=== PATIENT | female | born 1965 | race Caucasian/White ===

== ENCOUNTER 2017-06-18 10:52 | Day surgery (SDC) | payer OTHER ==
[~2017-06-18] VITALS: Ht 167.6 cm; Wt 120.7 kg
[~2017-06-18 10:52] MED LIST: ADVIL; ALBIPROI INH; ARIP15 PO; BCOIRO PO; CHLO10 PO; CORGARD PO; CYCL10 PO; DOXY100 PO; FAMO20 PO; FAMO40 PO; FOLI1 PO; FURO20 PO; FURO40 PO; FURO80 PO; IBUP600 PO; K-Dur PO; LACT10SY PO; LEVFLO500 PO; METO10 PO; METO100 PO; METR500 PO; MULVITB PO; NADO20 PO; NADOLOL; NAPR500 PO; NYST100SU SS; Norco 5-325 Ta1 EACH PO; OMEP20ER PO; OMEP40CA12 PO; ONDA4ODT MM; OSTERA TABLET1 EACH; OXYC5 PO; PARI1 PO; PENT400ER PO; POTCHL10ER PO; POTCHL20ER PO; PROM25 PO; PROM25S PR; Phenergan PO; SPIR50 PO; TAMS.4ER PO; THIA100 PO; TRAM50 PO; Zofran Odt4 MG SL
== END 2017-06-18 14:00 | disposition home or self-care (01) ==
LOC: ORSCSDS 10:52
PROVIDERS: Internal Medicine Gastroenterology
PROC: 0DJ08ZZ Inspection of Upper Intestinal Tract, Via Natural or Artificial Opening Endoscopic (ICD-10-PCS; principal; 2017-06-18 12:00)
DX: K74.60 Unspecified cirrhosis of liver (principal); I85.00 Esophageal varices without bleeding; K44.9 Diaphragmatic hernia without obstruction or gangrene; J44.9 Chronic obstructive pulmonary disease, unspecified; B19.20 Unspecified viral hepatitis C without hepatic coma; K21.9 Gastro-esophageal reflux disease without esophagitis; Z87.891 Personal history of nicotine dependence; E66.9 Obesity, unspecified; Z68.41 Body mass index [BMI] 40.0-44.9, adult
CPT/HCPCS: J7120

== ENCOUNTER 2018-07-15 17:11 | Emergency (ER) | payer OTHER ==
[~2018-07-15] VITALS: Ht 167.6 cm; Wt 136.1 kg
[~2018-07-15 17:11] MED LIST changes: +ALBU2.5V5 NEB; +ALBU3IS INH; +Advil200 M1 PO; +MELATONIN5 M1 PO; +Omeprazole20 M1 PO; +PROP60 PO; +TRAZ50 PO
[2018-07-15 18:34] LABS: BASOPHILS ABSOLUTE AUTO 0.07 K/mm3 (0.00-0.23); BASOPHILS PERCENT AUTO 1 % (0-2); EOSINOPHILS ABSOLUTE AUTO 0.47 K/mm3 (0.00-0.68); EOSINOPHILS PERCENT AUTO 8 % (0-6); Hemoglobin 11.1 g/dL (11.5-16.0); IMMATURE GRAN ABSOLUTE AUTO 0.02 K/mm3 (0.00-0.10); IMMATURE GRAN PERCENT AUTO 0 % (0-1); LYMPHOCYTES ABSOLUTE AUTO 1.99 K/mm3 (0.84-5.20); LYMPHOCYTES PERCENT AUTO 34 % (21-46); MONOCYTES ABSOLUTE AUTO 0.53 K/mm3 (0.16-1.47); MONOCYTES PERCENT AUTO 9 % (4-13); Mean Corpuscular HGB 26.3 pg (26.0-34.0); Mean Corpuscular Volume 88 fL (80-100); Mean Platelet Volume 10.2 fL (9.1-12.4); NEUTROPHILS ABSOLUTE AUTO 2.79 K/mm3 (1.96-9.15); NEUTROPHILS PERCENT AUTO 48 % (41-73); Platelet Count 230 K/mm3 (150-400); RDW Coefficient Variation 16.4 % (11.7-14.2); RDW Standard Deviation 52.8 fL (35.1-46.3); Red Blood Cell Count 4.22 M/mm3 (3.80-5.20); White Blood Cell Count 5.87 K/mm3 (4.00-11.30)
[2018-07-15 19:11] LABS: Alanine Aminotransfer (ALT/SGP 19 U/L (12-78); Albumin, Blood 3.2 g/dL (3.4-5.0); Albumin/Globulin Ratio 0.9 (0.8-1.8); Alk Phos 101 U/L (50-136); Anion Gap 5 mmol/L (6-16); Aspartate Aminotrans (AST/SGOT 20 U/L (12-37); Bilirubin, Total 1.1 mg/dL (0.1-1.0); Blood Urea Nitrogen 10 mg/dL (8-24); Bun/Creatinine Ratio 13.6 (12.0-20.0); CO2, Blood 29 mmol/L (21-32); Calcium, Blood 8.8 mg/dL (8.5-10.1); Chloride, Blood 105 mmol/L (98-108); Creatinine, Blood 0.74 mg/dL (0.40-1.00); Globulin, Blood 3.7 g/dL (2.2-4.0); Glomerular Filtration Rate >60 (60-); Glucose, Blood 115 mg/dL (70-99); Potassium, Blood 3.8 mmol/L (3.5-5.5); Sodium, Blood 139 mmol/L (136-145); Total Protein, Blood 6.9 g/dL (6.4-8.2); Troponin I <0.015 ng/mL (0.000-0.040)
[2018-07-15] MEDS ORDERED: Diflucan100 MG PO (20:29)
== END 2018-07-15 20:40 | disposition home or self-care (01) ==
LOC: ER 17:11
PROVIDERS: Physician Assistant
DX: R60.0 Localized edema (principal); B37.9 Candidiasis, unspecified; Z88.5 Allergy status to narcotic agent; Z79.899 Other long term (current) drug therapy; Z87.891 Personal history of nicotine dependence
CPT/HCPCS: 36415; 71046; 80053; 83880; 84484; 85025; 93005; 93010; 99285-25

== ENCOUNTER 2018-11-21 07:17 | Day surgery (SDC) | payer OTHER ==
[~2018-11-21] VITALS: Ht 165.1 cm; Wt 158.0 kg
[~2018-11-21 07:17] MED LIST changes: +Diflucan100 MG PO
--- NOTE | 2018-11-21 07:48 | NUR ---
History, Chart, Medications and Allergies reviewed before start of procedure. Patient States Post-Procedure ride home has been arranged.
--- NOTE | 2018-11-21 09:31 | NUR ---
11/21/18 0931 Lakesha Herring History, Chart, Medications and Allergies reviewed before start of procedure. Patient confirms NPO status and agrees with scheduled surgery. MONITOR INTACT WITH CONTINUOUS PULSE OXIMETRY AND INTERMITTENT BP.
--- NOTE | 2018-11-21 10:00 | NUR ---
INTO STEP VIA OBEDRJARROD. PT COUGHING AND AUDIBLY WZ. SATS 84% ON RA. PLACED ON 2 LITERS NASAL CANULA TO KEEP SAS>90%. PT RECEIVED LIDOCAINE NEB PRIOR TO PROCEDURE. WILL HOLD OFF ON PO FLUIDS UNTIL GAG REFLEX RETURNS.
--- NOTE | 2018-11-21 10:50 | NUR ---
Patient up to Ambulate independently. Gait steady. Discharge instructions reviewed with patient. Patient verbalizes understanding. Copy given to patient to take home. Discharged via wheelchair to private car for ride home.
== END 2018-11-21 10:57 | disposition home or self-care (01) ==
LOC: ORSCMMR 07:17 → ORD 08:45 → ORSCMMR 10:57
PROVIDERS: Internal Medicine Gastroenterology
PROC: 0DB68ZX Excision of Stomach, Via Natural or Artificial Opening Endoscopic, Diagnostic (ICD-10-PCS; principal; 2018-11-21 08:45)
DX: K74.60 Unspecified cirrhosis of liver (principal); K31.7 Polyp of stomach and duodenum; I85.00 Esophageal varices without bleeding; J44.9 Chronic obstructive pulmonary disease, unspecified; I10 Essential (primary) hypertension; K44.9 Diaphragmatic hernia without obstruction or gangrene; K21.9 Gastro-esophageal reflux disease without esophagitis; E66.01 Morbid (severe) obesity due to excess calories; E11.9 Type 2 diabetes mellitus without complications; Z68.43 Body mass index [BMI] 50.0-59.9, adult; Z87.891 Personal history of nicotine dependence; Z79.899 Other long term (current) drug therapy
CPT/HCPCS: 88305; 88342; J2704; J7030

== ENCOUNTER 2019-01-28 19:17 | Inpatient (IN) | payer OTHER ==
[~2019-01-28] VITALS: Ht 167.6 cm; Wt 154.2 kg
[2019-01-28] MEDS ORDERED: Ventolin/Prove6.7 GM INH (19:41)
[2019-01-28] MEDS ORDERED: FUROSEMIDE20 MG PO (19:42)
[2019-01-28] MEDS ORDERED: THERA-D2000 UNIT PO (19:42)
[2019-01-28] MEDS ORDERED: POTA10T PO (19:43)
[2019-01-28 20:02] LABS: BASOPHILS ABSOLUTE AUTO 0.08 K/mm3 (0.00-0.23); BASOPHILS PERCENT AUTO 1 % (0-2); EOSINOPHILS ABSOLUTE AUTO 0.02 K/mm3 (0.00-0.68); EOSINOPHILS PERCENT AUTO 0 % (0-6); Hematocrit 35.3 % (33.0-51.0); Hemoglobin 10.1 g/dL (11.5-16.0); IMMATURE GRAN PERCENT AUTO 1 % (0-1); LYMPHOCYTES ABSOLUTE AUTO 0.89 K/mm3 (0.84-5.20); LYMPHOCYTES PERCENT AUTO 7 % (21-46); MONOCYTES ABSOLUTE AUTO 1.22 K/mm3 (0.16-1.47); MONOCYTES PERCENT AUTO 9 % (4-13); Mean Corpuscular HGB 23.8 pg (26.0-34.0); Mean Corpuscular HGB Conc 28.6 g/dL (31.5-36.5); Mean Corpuscular Volume 83 fL (80-100); NEUTROPHILS ABSOLUTE AUTO 10.86 K/mm3 (1.96-9.15); NEUTROPHILS PERCENT AUTO 82 % (41-73); Platelet Count 202 K/mm3 (150-400); RDW Coefficient Variation 18.3 % (11.7-14.2); RDW Standard Deviation 54.6 fL (35.1-46.3); Red Blood Cell Count 4.25 M/mm3 (3.80-5.20); White Blood Cell Count 13.17 K/mm3 (4.00-11.30)
[2019-01-28 20:20] LABS: Alanine Aminotransfer (ALT/SGP 32 U/L (12-78); Albumin, Blood 2.7 g/dL (3.4-5.0); Albumin/Globulin Ratio 0.7 (0.8-1.8); Alk Phos 97 U/L (50-136); Anion Gap 4 mmol/L (6-16); Aspartate Aminotrans (AST/SGOT 41 U/L (12-37); Bilirubin, Total 1.1 mg/dL (0.1-1.0); Blood Urea Nitrogen 14 mg/dL (8-24); Bun/Creatinine Ratio 18.6 (12.0-20.0); CO2, Blood 32 mmol/L (21-32); Calcium, Blood 8.3 mg/dL (8.5-10.1); Chloride, Blood 99 mmol/L (98-108); Creatinine, Blood 0.75 mg/dL (0.40-1.00); Globulin, Blood 4.1 g/dL (2.2-4.0); Glomerular Filtration Rate >60 (60-); Glucose, Blood 133 mg/dL (70-99); Potassium, Blood 4.4 mmol/L (3.5-5.5); Sodium, Blood 135 mmol/L (136-145); Total Protein, Blood 6.8 g/dL (6.4-8.2)
[2019-01-28 20:23] LABS: Troponin I 0.162 ng/mL (0.000-0.040)
[2019-01-28] MEDS ORDERED: MELATONIN5 M1 PO (21:09)
[2019-01-28 21:37] LABS: International Normalized Ratio 1.13; Prothrombin Time Results 11.8 Sec (9.7-11.5)
[2019-01-28 21:57] LABS: PCO2 Arterial 62.4 mmHg (35-45); PO2 Arterial 112 mmHg (80-100); pH Blood Arterial 7.35 (7.35-7.45)
[2019-01-29 07:06] LABS: Source, Urine Catheter
[2019-01-29 07:10] LABS: Bilirubin, Urine Neg (Neg); Blood, Urine 3+ (Neg); Glucose Qualitative, Urine Neg (Neg); Ketones, Urine Neg (Neg); Leukocyte Esterase, Urine 3+ (Neg); Nitrite, Urine Pos (Neg); Protein, Urine 3+ (Neg); Specific Gravity, Urine 1.015 (1.003-1.022); Urobilinogen, Urine 2+ (Normal)
[2019-01-29 07:17] LABS: Appearance, Urine Hazy (Clear); Color, Urine Yellow (P-Yellow)
[2019-01-29 07:18] LABS: Bacteria Many /hpf; Mucus Light ({null, 0-Heavy}); Squamous Epithelial Cells Not Seen /hpf (Few); White Blood Cells, Urine TNTC /hpf (0-5)
--- NOTE | 2019-01-29 08:38 | NUR ---
Recieved report from Finesse TAYLOR. Patient transfered to ICU 4 and was a four person slide transfer. She is on BIPAP 14/7 and backup rate 12 and sats mid 90%. She is alert and oriented and able to answer questions and communicate her needs. She denies any current pain. at bedside. She has Temp hilario in place and temp of 97.6. She has 20ga RFA and RAC, both dressings intact and siteds WNL's and are flushed and SL'd. Pictures of abrasion to right sandoval and released signed.
[2019-01-29 09:56] LABS: Alanine Aminotransfer (ALT/SGP 30 U/L (12-78); Albumin, Blood 2.6 g/dL (3.4-5.0); Albumin/Globulin Ratio 0.7 (0.8-1.8); Alk Phos 90 U/L (50-136); Anion Gap 7 mmol/L (6-16); Aspartate Aminotrans (AST/SGOT 45 U/L (12-37); Bilirubin, Total 0.7 mg/dL (0.1-1.0); Blood Urea Nitrogen 15 mg/dL (8-24); Bun/Creatinine Ratio 19.1 (12.0-20.0); CO2, Blood 30 mmol/L (21-32); Calcium, Blood 8.1 mg/dL (8.5-10.1); Chloride, Blood 99 mmol/L (98-108); Creatinine, Blood 0.79 mg/dL (0.40-1.00); Globulin, Blood 3.8 g/dL (2.2-4.0); Glomerular Filtration Rate >60 (60-); Glucose, Blood 154 mg/dL (70-99); Potassium, Blood 4.5 mmol/L (3.5-5.5); Sodium, Blood 136 mmol/L (136-145); Total Protein, Blood 6.4 g/dL (6.4-8.2)
[2019-01-29 10:03] LABS: BASOPHILS ABSOLUTE AUTO 0.02 K/mm3 (0.00-0.23); BASOPHILS PERCENT AUTO 0 % (0-2); EOSINOPHILS PERCENT AUTO 0 % (0-6); Hematocrit 34.6 % (33.0-51.0); Hemoglobin 9.9 g/dL (11.5-16.0); IMMATURE GRAN ABSOLUTE AUTO 0.08 K/mm3 (0.00-0.10); IMMATURE GRAN PERCENT AUTO 1 % (0-1); LYMPHOCYTES ABSOLUTE AUTO 0.75 K/mm3 (0.84-5.20); LYMPHOCYTES PERCENT AUTO 8 % (21-46); MONOCYTES ABSOLUTE AUTO 0.23 K/mm3 (0.16-1.47); MONOCYTES PERCENT AUTO 3 % (4-13); Mean Corpuscular HGB 23.9 pg (26.0-34.0); Mean Corpuscular HGB Conc 28.6 g/dL (31.5-36.5); Mean Corpuscular Volume 84 fL (80-100); Mean Platelet Volume 10.9 fL (9.1-12.4); NEUTROPHILS ABSOLUTE AUTO 8.26 K/mm3 (1.96-9.15); NEUTROPHILS PERCENT AUTO 88 % (41-73); NRBC ABSOLUTE 0.02 K/mm3 (0.00-0.02); NRBC Auto 0.2 /100 WBC (0.0-0.2); Platelet Count 185 K/mm3 (150-400); RDW Standard Deviation 54.1 fL (35.1-46.3); Red Blood Cell Count 4.14 M/mm3 (3.80-5.20); White Blood Cell Count 9.34 K/mm3 (4.00-11.30)
--- NOTE | 2019-01-29 10:56 | NUR ---
Dr Cedeno by and saw patient and stated ok to start on regular diet and give breaks off BIPAP 16/11 and started her on 6L O2 via NC and sats low 90%. She tolerated turkey sandwich and does not have her teeth with her. She is SR 80's and systolic 116 with MAP >65. She contineus to have tea colored ure as output and afebrile.
--- NOTE | 2019-01-29 11:08 | NUR ---
ECHOCARDIOGRAM COMPLETED
--- NOTE | 2019-01-29 17:11 | NUR ---
SHIFT SUMMARY: PT HAS BEEN RESTING IN BED SINCE ASSUMING CARE AT 1230. PT IS ALERT AND ORIENTED. LUNGS REMAIN COARSE AND WHEEZY BUT PT HAS MAINTAINED SPO2 IN THE MID 90S ON 6L/NC. SHE COMPLAINS OF HEADACHE THIS EVENING, BUT STATES THE TYLENOL SHE GOT LAST NIGHT DIDN'T WORK. PT STATES ADVIL WORKS AT HOME. DR. CARDENAS NOTIFIED, BUT HE WANTED TO AVOID NSAIDS SO ONE DOSE OF OXYCODONE ORDERED. NO OTHER REQUESTS AT THIS TIME. CONTINUING TO MONITOR.
--- NOTE | 2019-01-29 19:07 | NUR ---
Per admit trigger, I met with Anais about ACP documents. She has a SO, but they are not legally . She also has adult children. After education on purpose and benefit of Advanced Directive/POLST, Anais denied the need for either document. "My family knows what to do." She declined prayer. [employer] will remain available.
--- NOTE | 2019-01-30 00:08 | NUR ---
NOC NURSE NOTE (PCU STATUS) PATIENT ALERT AND ORIENTED X4. PATIENT MORBIDLY OBESE, PATIENT HAS PARTIAL DOLL EYE BUT PUPILS ARE REACTIVE TO LIGHT AND NO NYSTAGMUS NOTED. PATIENT ON 6 LPM WHEN SHE IS NOT ON THE BIPAP - COARE TO WHEEZE NOTED PER AUSCULATION OF LUNG SOUNDS. PATIENT REMAINS IN NSR IN THE 80-90'S PER MONITOR WITH NO EVENTS NOTED THIS SHIFT. PATIENT HAS PATENT DIEGO CATH DRAINING YELLOW URINE TO GRAVITY - DIURESING AT THIS TIME. PATIENT DENIES ANY PAIN OR DISCOMFORT. PATIENT CURRENTLY SLEEPING ON LEFT SIDE WITH BIPAP IN PLACE - TOLERATING WELL. CALL LIGHT W/I REACH, REPORT GIVEN TO ALEX TAYLOR.
--- NOTE | 2019-01-30 01:33 | NUR ---
ASSUMED CARE OF PT AT 0000. REPORT RECEIVED. PT PRESENTS IN BED WEARING BIPAP. AT THIS TIME IS TOLERATING THIS WELL. OXYGEN SATURATIONS MAINTAIN > 90 PERCENT. PT IN NO DISTRESS. WILL REVIEW CHART AND PLAN OF CARE FOR THIS PT.
[2019-01-30 03:06] LABS: BASOPHILS ABSOLUTE AUTO 0.02 K/mm3 (0.00-0.23); BASOPHILS PERCENT AUTO 0 % (0-2); EOSINOPHILS PERCENT AUTO 0 % (0-6); Hematocrit 34.7 % (33.0-51.0); Hemoglobin 9.7 g/dL (11.5-16.0); IMMATURE GRAN ABSOLUTE AUTO 0.09 K/mm3 (0.00-0.10); IMMATURE GRAN PERCENT AUTO 1 % (0-1); LYMPHOCYTES ABSOLUTE AUTO 0.94 K/mm3 (0.84-5.20); LYMPHOCYTES PERCENT AUTO 7 % (21-46); MONOCYTES ABSOLUTE AUTO 0.59 K/mm3 (0.16-1.47); MONOCYTES PERCENT AUTO 5 % (4-13); Mean Corpuscular HGB 23.3 pg (26.0-34.0); Mean Corpuscular Volume 83 fL (80-100); NEUTROPHILS ABSOLUTE AUTO 11.06 K/mm3 (1.96-9.15); NEUTROPHILS PERCENT AUTO 87 % (41-73); Platelet Count 193 K/mm3 (150-400); RDW Standard Deviation 53.6 fL (35.1-46.3); Red Blood Cell Count 4.17 M/mm3 (3.80-5.20)
--- NOTE | 2019-01-30 06:27 | NUR ---
PT HAS HAD SEVERAL BREAKS FROM BIPAP THIS NIGHT. PLACED TO 6 LITERS NASAL CANNULA. PT NEEDS TO BE ENCOURAGED TO BREATHE THROUGH HER NOSE. PT WOULD DESATURATE TO 86-88 PERCENT WHEN BREATHING THRU HER MOUTH. PT CURRENTLY BACK TO BIPAP. COMPLAINTS THIS NIGHT OF HEADACHE SHE RATES 9/10. CLAIMS THE HEADACHE PAIN IS BAD CHILDBIRTH. WHEN OFFERED TYLENOL, SHE STATES THAT TYLENOL WOULD NOT WORK. DID ADMINISTER 25 MCG FENTANYL AT THIS TIME. NO FURTHER COMPLAINTS. WILL CONTINUE TO MONITOR, AND WILL REPORT OFF TO ONCOMING RN.
--- NOTE | 2019-01-30 08:12 | NUR ---
ASSUMED CARE: RECEIVED REPORT FROM NOC RN. PT APPEARS TO BE SLEEPING ON BIPAP AFTER REPORT THEREFORE REVIEWED CHART AND ORDERS. BREAKFAST ARIVED AND PT IS TAKEN OFF BIPAP AND PLACED ON 7L NC. UPON ENTERING ROOM PT IS EATING AND IS NOTED TO BE COUGHING. PT IS TOLD TO SLOW DOWN ON HER EATING TO REDUCE RISK OF ASPIRATION, PT STATES UNDERSTANDING. ATTEMPTED TO HAVE PT SIT UP TO AUSCULTATE LUNG SOUND, BUT PT IS UNABLE TO TAKE DEEP BREATHS. CALL LIGHT IS IN REACH. BED IN LOWEST POSSITION. WILL CONTINUE TO MONITOR AND ASSESS FURTHER. MORNING MEDICATIONS GIVEN
--- NOTE | 2019-01-30 09:00 | NUR ---
TRANSFER ASSIGNMENT: ROOM ASSIGNMENT TO U 10 RECEIVED. ATTEMPTED TO CALL ODALYS APODACA RN. UNABLE TO AT THIS TIME. WILL CONTINUE TO MONITOR PT.
--- NOTE | 2019-01-30 10:31 | NUR ---
pt arrived to pcu 10 via bed from icu, report obtained from Chiara TAYLOR. pt is awake a/ox3, denies pain, states she just isn't breathing good yet, but is getting better every day. lungs have exp wheezing t/o, resp even and mildly labored at rest, RT in room titrating her 02, pt reports productive cough of white sputum, hrr, tele in place running sr per monitor, see strip, trace edema noted to b/l le, ppp+2, cap refill <3sec, vs stable, afebrile, iv sites are clear and patent, s.l. at this time, btx4, abd flat soft nontender, hilario cath in place, draining clear yellow urine, skin c/w/d, brittany rodriguez, call light in reach. pt on the phone.
--- NOTE | 2019-01-30 12:48 | NUR ---
PT HAS SOME COUGHING WHILE EATING, WHEN ASKED ABOUT IT SHE SAYS THIS ALWAYS HAPPENS AND HAS BEEN GOING ON FOR SOME TIME. SHE STOPPED COUGHING WHEN SHE FINSIHED. SATS REMAINED OK. VS STABLE. NO COMPLAINTS OR NEEDS AT THIS TIME. CALL LIGHT IN REACH.
--- NOTE | 2019-01-30 18:33 | NUR ---
family has been in to visit. no acute changes, no needs or complaints at this time. call light in reach.
--- NOTE | 2019-01-30 22:35 | NUR ---
ASSUMED CARE OF PATIENT AT APPROXIMATELY 1910 FROM JAMES Granger RN. PATIENT ALERT AND ORIENTED X4; PATIENT WEAK; SLOW TO RESPOND AT TIMES; TREMOR NOTED IN HANDS AND FEET THAT PATIENT REPORTS IS NORMAL; REPORTS TAKES MEDICATION FOR TREMOR. NSR/ST ON TELE; RATE OF 90-100; OXYGEN SATURATION ABOVE 90% ON 2LPM VIA NC OR BIPAP. PATIENT DENIES PAIN, NUMBNESS, TINGLING, DIZZINESS OR NAUSEA. PATIENT HAS COARSE L/S; COUGH NOTED; PATIENT REPORTS COUGH IS FROM "COPD". PATIENT Q2H TURNS; LIFT; REFUSES AT TIMES. DYSPNEA WITH ACTIVITY. PIV S/L. SPOUSE VISITED FOR ABOUT AN HOUR AND BROUGHT FOOD. PATIENT CURRENTLY RESTING IN BED; CALL LIGHT IN REACH; BED IN LOWEST POSISTON; WILL CONTINUE TO MONITOR AND ASSESS UNTIL END OF SHIFT.
--- NOTE | 2019-01-31 06:10 | NUR ---
PATIENT SLEPT ABOUT SEVEN HOURS LAST NIGHT; MOST OF NIGHT WITH BIPAP ON; OXYGEN SATURATION ABOVE 90% ON 2LPM WHEN OFF BIPAP. TURNED WITH LIFT FREQUENTLY. VSS. NO OTHER ACUTE CHANGES TO REPORT. WILL CONTINUE TO MONITOR AND ASSESS UNTIL END OF SHIFT.
--- NOTE | 2019-01-31 07:51 | NUR ---
PT LAYING IN BED AWAKE A/OX3, PLEASANT AND MOSTLY COOPERATIVE WITH CARE, FOLLOWS COMMANDS WELL, DENIES PAIN, STATES SHE HAD A ROUGH NIGHT, NOT A LOT OF SLEEP, DOESN'T KNOW WHY, LUNGS ARE TIGHT IN UPPER CARTER, WITH OCC WHEEZE, DIM T/O, RESP EVEN AND MILDLY LABORED, HAS A HARSH NONPRODUCTIVE COUGH, HRR, TELE IN PLACE RUNNING ST PER MONITOR, SEE STRIP, TRACE EDEMA NOTED TO B/L LE, COULD BE BODY HABITUS, PPP+1, CAP REFILL <3SEC, VS STABLE, AFEBRILE, IV SITE IS CLEAR AND PATENT, S.L., BT X4, ABD FLAT SOFT NONTENDER, DIEGO CATH DRAINING CLEAR YELLOW URINE, SKIN HAS SCABS TO B/L SHINS, MAEW, WEAK, BUT REFUSING TO MOVE A LOT, NO, CALL LIGHT IN REACH.
--- NOTE | 2019-01-31 13:30 | NUR ---
pt resting in bed, pt worked with her, was able to sit her up on the side of the bed, but pt became sob, and wheezy, so got her back to bed, we used the lift to pull her up in bed. recovered quickly. call light in reach.
--- NOTE | 2019-01-31 17:59 | NUR ---
changed lift pad under pt, and her baxters, did some supriya care as she has a strong odor, and cath care, pillow cases were put in her folds to absorb moisture, pt did start wheezing again while doing care, but quickly recovered, call, propped her on pillows on her side a bit. did some education about bed sores and why she needs to be moved. call light in reach.
--- NOTE | 2019-02-01 06:24 | NUR ---
SHIFT SUMMARY ASSUMED CARE OF PT AT 1900, PT ALERT AND ORIENTED LYING IN BED. PT IS SHORT OF BREATH AND DOES NOT TOLERATE WELL EVEN SITTING IN BED OR ROLLING TO ONE SIDE. PT TREATED PER MD ORDER AND UNIT PROTOCOL, TURNED AND REPOSITIONED Q2-3 HRS, USING OVERHEAD LIFT TO REPOSITION. PT RECEIVED A BED BATH THIS SHIFT WHICH SHE TOLERATED WELL IN RELATION TO HER BASELINE. PT USED M-SERIES CPAP THIS SHIFT AND O2 SATS WERE MAITAINED AT OR ABOVE 92. PATIENT RESTING IN BED POST BED-BATH, BED LOW AND LOCKED, BED ALARM ACTIVE, CALL LIGHT W/IN REACH. WILL CONTINUE TO MONITOR UNTIL PASSING CARE AND REPORT TO ONCOMING SHIFT
--- NOTE | 2019-02-01 13:14 | NUR ---
TRANSFER TO 325 REPORT CALLED TO TALIA TAYLOR. PT TRANSFERED IN BED WITH OXYGEN ACCOMAPNIED BY JAMES TAYLOR AND TALIA. PT AGREEABLE TO TRANSFER. CONTINUE POT.
--- NOTE | 2019-02-01 14:30 | NUR ---
PT TX TO ROOM 325 FROM PCU 10 AT 1300- BED TX DONE IN PCU. SENT WITH BIBAP MACHINE. RR ON ARRIVAL WAS 34, PT WITH INS/EXP WHEEZE UPPER AND MID LOBES. PLACED PT ON BIBAP, CALLED RT FOR NEB TX AND TO SET UP CONT PULSE OX. SATS 88-92% ON 3L NC. PT HAS INTERMITTANT STRONG BARKEY COUGH THAT SHE CAN'T STOP. RESP EFFORT IMPROVED AFTER ALB NEB. FAMILY AT BEDSIDE. PT ORIENTED TO ROOM SET UP AND SAFETY. USES CALL LIGHT.
--- NOTE | 2019-02-01 19:56 | NUR ---
SUMM- PT ALERT AND ORIENTED. BEDREST, USES CALL LIGHT FREQ AND FORGETS SHE CALLED OR SAYS SHE NEEDS NOTHING. TOLERATING FOOD AND FLUIDS. RESP WITN FREQ COUGH NONPRODUCTIVE. SCATTERED RHONCHI, O2 INCREASD FROM 3-5L, SATS WERE 86-88% ON 3L. INCREASED TO 90% ON 5L MISTED O'2. ONE EPISODE ON ARRIVAL OF SEVERE DYSPNEA WITH RR 36, WHEEZE AND PLACED ON BIBAP AND CALLED RT FOR NEB WHICH HELPED.
--- NOTE | 2019-02-02 04:50 | NUR ---
SHIFT SUMMARY PT HAS BEEN ON BIPAP c 5L BLEED IN OVERNIGHT, REQUESTED A SMALL"BREAK" FROM THE MASK AT ONE POINT AND WAS SWITCHED TO 5L VIA NC. O2 SATS 90-91% ON BIPAP AND NC. DIPS DOWN INTO THE 80s WHILE EATING OR LYING FLAT. SOB c EXERTION. PT HAS BUE TREMORS, STATE THIS IS BASELINE. LARGE BM TONIGHT. LS COARSE WHEEZE T/O, RT ADMINISTERED NEBS PER EMAR. C/O SEVERE MIGRAINE, TREATED c 25 MCG FENTANYL ONCE TONIGHT; PROVIDES RELIEF. 1+ EDEMA T/O BODY. 2+ EDEMA TO ANKLES. DIEGO IS PATENT AND DRAINING CLEAR YELLOW URINE. DENIES N/V/D. WILL CONT TO MONITOR AND PROVIDE CARE UNTIL PRESUMED BY ONCOMING RN.
[2019-02-02 05:08] LABS: BASOPHILS ABSOLUTE AUTO 0.01 K/mm3 (0.00-0.23); BASOPHILS PERCENT AUTO 0 % (0-2); EOSINOPHILS ABSOLUTE AUTO 0.01 K/mm3 (0.00-0.68); EOSINOPHILS PERCENT AUTO 0 % (0-6); Hematocrit 36.2 % (33.0-51.0); Hemoglobin 10.4 g/dL (11.5-16.0); IMMATURE GRAN ABSOLUTE AUTO 0.07 K/mm3 (0.00-0.10); IMMATURE GRAN PERCENT AUTO 1 % (0-1); LYMPHOCYTES ABSOLUTE AUTO 1.52 K/mm3 (0.84-5.20); LYMPHOCYTES PERCENT AUTO 16 % (21-46); MONOCYTES ABSOLUTE AUTO 0.97 K/mm3 (0.16-1.47); MONOCYTES PERCENT AUTO 10 % (4-13); Mean Corpuscular HGB Conc 28.7 g/dL (31.5-36.5); Mean Corpuscular Volume 83 fL (80-100); Mean Platelet Volume 10.5 fL (9.1-12.4); NEUTROPHILS PERCENT AUTO 73 % (41-73); Platelet Count 234 K/mm3 (150-400); RDW Coefficient Variation 18.4 % (11.7-14.2); Red Blood Cell Count 4.34 M/mm3 (3.80-5.20); White Blood Cell Count 9.58 K/mm3 (4.00-11.30)
[2019-02-02 05:24] LABS: Anion Gap 3 mmol/L (6-16); Blood Urea Nitrogen 30 mg/dL (8-24); Bun/Creatinine Ratio 43.7 (12.0-20.0); CO2, Blood 33 mmol/L (21-32); Calcium, Blood 8.4 mg/dL (8.5-10.1); Chloride, Blood 103 mmol/L (98-108); Creatinine, Blood 0.69 mg/dL (0.40-1.00); Glomerular Filtration Rate >60 (60-); Glucose, Blood 137 mg/dL (70-99); Potassium, Blood 4.5 mmol/L (3.5-5.5); Sodium, Blood 139 mmol/L (136-145)
[2019-02-02 11:56] LABS: PCO2 Arterial 52.2 mmHg (35-45); PO2 Arterial 60.7 mmHg (80-100); pH Blood Arterial 7.42 (7.35-7.45)
--- NOTE | 2019-02-02 17:57 | NUR ---
SHIFT SUMMARY PT COMPLAINED OF HEADACHE THIS AM. OXICODONE ORDERED AND GIVEN X1. PT HAS HAD NO COMPLAINTS SINCE. OXYGEN AT 5L VIA NC. PT VERY SHORT OF BREATH WITH ANY EXERTION. PT WORKED WITH PHYSICAL THERAPY THIS SHIFT. PT HAD AN INCONTINENCE OF BOWEL THIS AFTERNOON. PT HAD A BED BATH AND LIFT SHEET CHANGED. DIEGO REMOVED AT 1600 THIS EVENING. NO VOID AT THIS TIME. NO ACUTE CHANGES THIS SHIFT. CALL LIGHT IN REACH. WILL CONTINUE TO MONITOR AND REPORT TO ONCOMING RN.
--- NOTE | 2019-02-02 18:42 | NUR ---
Pt out in [facility] wanted to talk about her needs. He understands why she wont go to rehab they have had some very bad interactions with the rab facilities. He fears her going home that it will be enough care. he also fears that she will decline more or start drinking he is distraught and fearful and worn out. Met with patient she states no headache today but has been having terrible headaches. she has very round face and bulging eyes and minimal blinking. She denies headaches some difficulty swallowing. she has generalized pain and aches all over. she states she takes to much aleve at home but it works. Denies nausea. states her activity at home is very very minimal.. pt states tremor does not interupt sleep. states her qulaity of sleep is poor. review non pharmacological treatment of her pain and not taking the aleve. pt states she is very very depressed. He states the same. Pt is high risk of readmission and failure of plan. She may do better at home. She is willing to let home health come in and see her and the high risk program. is tryin to get family to help she may qualify for caregiver help Had a blunt conversation with about trajectory of her disease and future needs up to and including end of life and risk for sudden events. pt kps score is 50%. she feels she will never loose weight. we reviewed learning how to use a computer for diversion and support groups online that are annonymous. reviewed stress and depression will see if chaplian can get a sponser for her. will see if I can get some support.
--- NOTE | 2019-02-03 04:42 | NUR ---
NATALIA TRIAL PT WEENED DOWN TO 3L VIA NC FROM 5L VIA NC AT THIS TIME. O2 SATS 94% ON 3L. PT DOES NOT APPEAR TO BE HAVING ANY RESP DIFFICULTY. WILL CONT TO MONITOR.
--- NOTE | 2019-02-03 04:51 | NUR ---
TITRATED DOWN TO 2L VIA NC AT THIS TIME. CONT PULSE OX IN PLACE. 94% ON 2L.
--- NOTE | 2019-02-03 04:52 | NUR ---
SHIFT SUMMARY PT WITH DYSPNEA UPON EXERTION AND LYING FLAT. RR LABORED AND INCREASED AT TIMES, ESPECIALLY AFTER REPOSITIONING AND BEDPAN/TURNING IN BED. PT O2 SATS DO NOT DROP BELOW 90% TONIGHT. SUCCESSFULLY HAS BEEN TITRATED FROM 5L VIA NC AT START OF SHIFT DOWN TO 2L VIA NC AT THIS TIME. O2 SATS 94% NOW PER CONT PULSE OX. PT HAS MULTIPLE LARGE, FORMED BMs TONIGHT. IS A&OX4, WITH DEPRESSED FLAT AFFECT, BUE TREMORS NOTED, CONT FIDGETING. SLEEPS WELL THROUGH THE NIGHT, IS CALL LT APPROP. WILL CONT TO MONITOR AND PROVIDE CARE UNTIL PRESUMED BY ONCOMING RN.
--- NOTE | 2019-02-03 18:48 | NUR ---
SHIFT SUMMARY TRILOGY DEVICE DELIVERED BY LUIS FELIPE TO THE PT'S ROOM TODAY. PT IS SOB/DYSPNEIC WITH REPOSITIONING OR ANY MILD ACTIVITY. CONTINUOUS PULSE OX MONITORING. FOR LUNCH PT ABLE TO GET UP IN WHEELCHAIR WITH MODERATE ASSIST AND FWW. SHE USES A FWW AT HOME SO IT IS IMPORTANT TO RETURN HER TO HER BASELINE - SHE IS REFUSING SNF PLACEMENT.
--- NOTE | 2019-02-04 05:48 | NUR ---
SHIFT SUMMARY PT REFUSES TO WEAR TRILOGY OR BIPAP MACHINE, ONLY WILL ALLOW NC TONIGHT D/T COMFORT. ON 2L VIA NC, CONT PULSE OX SHOW O2 SATS AT 93-94%. LS COARSE WHEEZE T/O. PT C/O OF LANGE, MANAGED WITH PRN TYLENOL. IS IN TONIGHT, EXPRESSES CONCERNS ABOUT PT RETURNING HOME AND NOT BEING ABLE TO CARE FOR SELF. PLAN IS FOR HH UPON D/C. HOWEVER, HOPES PT WILL WORK WITH PT/OT MORE BEFORE D/C HOME SO THAT SHE CAN BE "MORE INDEPENDENT" WHEN HH IS NOT THERE. CURRENTLY PT IS A 2 PERS MAX ASSIST OR LIFT FOR AMBULATION. NO OTHER CHANGES. WILL CONT TO MONITOR AND PROVIDE CARE UNTIL PRESUMED BY ONCOMING RN.
[2019-02-04] MEDS ORDERED: FURO40 PO (12:20)
[2019-02-04] MEDS ORDERED: PRED20 PO (12:21)
[2019-02-04] MEDS ORDERED: BUDE10.22 INH (15:10)
[2019-02-04] MEDS ORDERED: CEFU500T30 PO (15:11)
--- NOTE | 2019-02-04 15:46 | NUR ---
PT DISCHARGED TO HOME. TO PROVIDE TRANSPORT. PT TRANSFERED TO WHEELCHAIR ON HER OWN FOR TRANSPORTATION TO VEHICLE. PT DISCHARGED ON O2. PT INSTRUCTED ON DISCHARGE INSTRUCTIONS, MEDICATIONS, AND TRILOGY (O2) MACHINE. PT AND VERBALIZED UNDERSTANDING OF INSTRUCTIONS. HOME HEALTH IN ROOM DISCUSSING NEEDS WITH PT PRIOR TO DISCHARGE. PT CALM WHEN LEAVING THE FLOOR, WITH NO SIGNS OF RESPIRATORY DISTRESS.
--- NOTE | 2019-02-04 15:46 | NUR ---
LUIS FELIPE THIS RN CALLED LUIS FELIPE TO NOTIFY THEM THAT PT WAS DISCHARGING AND HEADING HOME AT THIS TIME.
== END 2019-02-04 15:43 | disposition home health service (06) | DRG 871 ==
LOC: ER 19:17 → ERHOLD 21:45 → ICUE 01-29 08:02 → PCU 01-30 10:24 → MEDS 02-01 13:19
PROVIDERS: Emergency Medicine; Hospitalist; Nurse Practitioner Acute Care; ADMIT Internal Medicine
PROC: 5A09357 Assistance with Respiratory Ventilation, Less than 24 Consecutive Hours, Continuous Positive Airway Pressure (ICD-10-PCS; principal; 2019-01-28)
DX: A41.51 Sepsis due to Escherichia coli [E. coli] (principal); J96.21 Acute and chronic respiratory failure with hypoxia; J18.9 Pneumonia, unspecified organism; J96.22 Acute and chronic respiratory failure with hypercapnia; J44.1 Chronic obstructive pulmonary disease with (acute) exacerbation; E66.2 Morbid (severe) obesity with alveolar hypoventilation; J44.0 Chronic obstructive pulmonary disease with (acute) lower respiratory infection; N39.0 Urinary tract infection, site not specified; Z68.43 Body mass index [BMI] 50.0-59.9, adult; R65.20 Severe sepsis without septic shock; K74.60 Unspecified cirrhosis of liver; F32.9 Major depressive disorder, single episode, unspecified; K21.9 Gastro-esophageal reflux disease without esophagitis; I50.9 Heart failure, unspecified; D64.9 Anemia, unspecified; Z91.14 Patient's other noncompliance with medication regimen; Z88.5 Allergy status to narcotic agent; Z87.891 Personal history of nicotine dependence
CPT/HCPCS: 36415; 36600; 51702; 71045; 80048; 80053; 81001; 82140; 82803; 83605; 83735; 83880; 84145; 84484; 85025; 85610; 85730; 87040; 87077; 87086; 87186; 93005; 93010; 93308; 93321; 94640; 94660; 94762; 96365-59; 96367-59; 96372-59; 96375; 96375-59; 96376; 97110; 97162; 97166; 97530; 99285-25; A9270; C9113; J0456; J0696; J1650; J1940; J1956; J2930; J3010; J7050; J7512

== ENCOUNTER 2019-03-04 14:11 | Emergency (ER) | payer OTHER ==
[~2019-03-04] VITALS: Ht 167.6 cm; Wt 149.7 kg
[~2019-03-04 14:11] MED LIST changes: +BUDE10.22 INH; +CEFU500T30 PO; +FUROSEMIDE20 MG PO; +POTA10T PO; +PRED20 PO; +THERA-D2000 UNIT PO; +Ventolin/Prove6.7 GM INH
[2019-03-04 15:41] LABS: BASOPHILS ABSOLUTE AUTO 0.07 K/mm3 (0.00-0.23); BASOPHILS PERCENT AUTO 1 % (0-2); EOSINOPHILS PERCENT AUTO 3 % (0-6); Hematocrit 38.8 % (33.0-51.0); Hemoglobin 11.3 g/dL (11.5-16.0); IMMATURE GRAN ABSOLUTE AUTO 0.05 K/mm3 (0.00-0.10); IMMATURE GRAN PERCENT AUTO 1 % (0-1); LYMPHOCYTES ABSOLUTE AUTO 2.33 K/mm3 (0.84-5.20); LYMPHOCYTES PERCENT AUTO 25 % (21-46); MONOCYTES ABSOLUTE AUTO 0.98 K/mm3 (0.16-1.47); MONOCYTES PERCENT AUTO 11 % (4-13); Mean Corpuscular HGB 24.7 pg (26.0-34.0); Mean Corpuscular HGB Conc 29.1 g/dL (31.5-36.5); Mean Corpuscular Volume 85 fL (80-100); NEUTROPHILS ABSOLUTE AUTO 5.58 K/mm3 (1.96-9.15); NEUTROPHILS PERCENT AUTO 60 % (41-73); Platelet Count 352 K/mm3 (150-400); RDW Coefficient Variation 19.8 % (11.7-14.2); RDW Standard Deviation 60.5 fL (35.1-46.3); Red Blood Cell Count 4.58 M/mm3 (3.80-5.20); White Blood Cell Count 9.31 K/mm3 (4.00-11.30)
[2019-03-04 16:02] LABS: Alanine Aminotransfer (ALT/SGP 20 U/L (12-78); Albumin, Blood 3.3 g/dL (3.4-5.0); Albumin/Globulin Ratio 0.8 (0.8-1.8); Alk Phos 82 U/L (50-136); Anion Gap 7 mmol/L (6-16); Aspartate Aminotrans (AST/SGOT 21 U/L (12-37); Bilirubin, Total 0.5 mg/dL (0.1-1.0); Blood Urea Nitrogen 12 mg/dL (8-24); Bun/Creatinine Ratio 12.7 (12.0-20.0); CO2, Blood 26 mmol/L (21-32); Chloride, Blood 104 mmol/L (98-108); Creatinine, Blood 0.94 mg/dL (0.40-1.00); Globulin, Blood 4.2 g/dL (2.2-4.0); Glomerular Filtration Rate >60 (60-); Glucose, Blood 106 mg/dL (70-99); Potassium, Blood 3.9 mmol/L (3.5-5.5); Sodium, Blood 137 mmol/L (136-145); Total Protein, Blood 7.5 g/dL (6.4-8.2); Troponin I <0.015 ng/mL (0.000-0.040)
[2019-03-04] MEDS ORDERED: PRED10 PO (18:17)
== END 2019-03-04 19:25 | disposition home or self-care (01) ==
LOC: ER 14:11
PROVIDERS: Physician Assistant
DX: J44.1 Chronic obstructive pulmonary disease with (acute) exacerbation (principal); E87.70 Fluid overload, unspecified; F32.9 Major depressive disorder, single episode, unspecified; K21.9 Gastro-esophageal reflux disease without esophagitis; E66.01 Morbid (severe) obesity due to excess calories; Z87.01 Personal history of pneumonia (recurrent); Z87.891 Personal history of nicotine dependence
CPT/HCPCS: 36415; 71046; 80053; 83880; 84484; 85025; 93005; 93010; 94644; 96374; 96375; 99284-25; J1940; J2930

== ENCOUNTER 2019-04-01 13:58 | Emergency (ER) | payer OTHER ==
[~2019-04-01] VITALS: Ht 167.6 cm; Wt 154.2 kg
[~2019-04-01 13:58] MED LIST changes: +PRED10 PO
[2019-04-01 14:38] LABS: BASOPHILS ABSOLUTE AUTO 0.06 K/mm3 (0.00-0.23); BASOPHILS PERCENT AUTO 1 % (0-2); EOSINOPHILS ABSOLUTE AUTO 0.41 K/mm3 (0.00-0.68); EOSINOPHILS PERCENT AUTO 3 % (0-6); Hematocrit 36.4 % (33.0-51.0); Hemoglobin 10.5 g/dL (11.5-16.0); IMMATURE GRAN ABSOLUTE AUTO 0.07 K/mm3 (0.00-0.10); IMMATURE GRAN PERCENT AUTO 1 % (0-1); LYMPHOCYTES ABSOLUTE AUTO 3.41 K/mm3 (0.84-5.20); LYMPHOCYTES PERCENT AUTO 28 % (21-46); MONOCYTES ABSOLUTE AUTO 1.29 K/mm3 (0.16-1.47); MONOCYTES PERCENT AUTO 11 % (4-13); Mean Corpuscular HGB 24.6 pg (26.0-34.0); Mean Corpuscular HGB Conc 28.8 g/dL (31.5-36.5); Mean Corpuscular Volume 85 fL (80-100); Mean Platelet Volume 10.2 fL (9.1-12.4); NEUTROPHILS ABSOLUTE AUTO 6.82 K/mm3 (1.96-9.15); NEUTROPHILS PERCENT AUTO 57 % (41-73); Platelet Count 300 K/mm3 (150-400); RDW Coefficient Variation 19.2 % (11.7-14.2); RDW Standard Deviation 59.8 fL (35.1-46.3); Red Blood Cell Count 4.26 M/mm3 (3.80-5.20); White Blood Cell Count 12.06 K/mm3 (4.00-11.30)
[2019-04-01 14:59] LABS: Alanine Aminotransfer (ALT/SGP 28 U/L (12-78); Albumin, Blood 3.2 g/dL (3.4-5.0); Albumin/Globulin Ratio 0.8 (0.8-1.8); Alk Phos 69 U/L (50-136); Anion Gap 5 mmol/L (6-16); Aspartate Aminotrans (AST/SGOT 17 U/L (12-37); Bilirubin, Total 0.4 mg/dL (0.1-1.0); Blood Urea Nitrogen 18 mg/dL (8-24); Bun/Creatinine Ratio 21.3 (12.0-20.0); CO2, Blood 33 mmol/L (21-32); Calcium, Blood 8.8 mg/dL (8.5-10.1); Chloride, Blood 105 mmol/L (98-108); Creatinine, Blood 0.85 mg/dL (0.40-1.00); Glomerular Filtration Rate >60 (60-); Glucose, Blood 91 mg/dL (70-99); Sodium, Blood 143 mmol/L (136-145); Total Protein, Blood 7.2 g/dL (6.4-8.2); Troponin I <0.015 ng/mL (0.000-0.040)
[2019-04-01] MEDS ORDERED: Prednisone20 MG PO (15:58)
== END 2019-04-01 16:35 | disposition home or self-care (01) ==
LOC: ER 13:58
PROVIDERS: Physician Assistant
DX: J44.1 Chronic obstructive pulmonary disease with (acute) exacerbation (principal); F32.9 Major depressive disorder, single episode, unspecified; I50.9 Heart failure, unspecified; D72.829 Elevated white blood cell count, unspecified; D64.9 Anemia, unspecified; Z87.01 Personal history of pneumonia (recurrent); Z87.891 Personal history of nicotine dependence; Z88.5 Allergy status to narcotic agent; Z79.899 Other long term (current) drug therapy; Z79.52 Long term (current) use of systemic steroids
CPT/HCPCS: 36415; 71046; 80053; 83880; 84484; 85025; 94644; 96374; 99284-25; J2930

== ENCOUNTER 2019-07-29 00:30 | Day surgery (SDC) | payer OTHER ==
[~2019-07-29 00:30] MED LIST changes: +Prednisone20 MG PO
== END 2019-07-29 22:41 | disposition home or self-care (01) ==
LOC: WOUND 00:30
DX: S31.809A Unspecified open wound of unspecified buttock, initial encounter (principal); X58.XXXA Exposure to other specified factors, initial encounter
CPT/HCPCS: G0463

== ENCOUNTER 2020-01-25 01:02 | Day surgery (SDC) | payer OTHER ==
[~2020-01-25 01:02] MED LIST changes: +ACET325 PO; +ACET500 PO; +ALBU2.5V5 INH; +B-1100 M1 PO; +DOCU100 PO; +Doxycycline Mo100 M1 PO; +Flovent 220 Ora12 GM; +IBUP400 PO; +IPRAT-ALBUT 0.5-3 ML INH; +LEVO750 PO; +METO25ER PO; +MIRALAX17 GM PO; +MULTI-VITAMIN1 EAC2 PO; +NYAMYC15 G1 TOP; +NYSTATIN100000 UN1 SS; +PROBIOTIC & AC1 EACH PO; +ROBITUSSIN100 MG/5 M PO; +SENN187 PO; +SYMBICORT 80-10.2 GM INH; +VITAMIN D3125 MC3 PO
== END 2020-01-25 23:17 | disposition home or self-care (01) ==
LOC: WOUND 01:02
DX: S31.819A Unspecified open wound of right buttock, initial encounter (principal); S31.829A Unspecified open wound of left buttock, initial encounter; E66.01 Morbid (severe) obesity due to excess calories; E03.9 Hypothyroidism, unspecified; F41.9 Anxiety disorder, unspecified; F32.9 Major depressive disorder, single episode, unspecified; K21.9 Gastro-esophageal reflux disease without esophagitis; I10 Essential (primary) hypertension; Z88.5 Allergy status to narcotic agent; Z88.0 Allergy status to penicillin; Z87.891 Personal history of nicotine dependence; J44.1 Chronic obstructive pulmonary disease with (acute) exacerbation; Z68.43 Body mass index [BMI] 50.0-59.9, adult; Z79.899 Other long term (current) drug therapy
CPT/HCPCS: G0463

== ENCOUNTER 2020-04-15 07:57 | Day surgery (SDC) | payer OTHER ==
[~2020-04-15] VITALS: Ht 165.1 cm; Wt 169.8 kg
--- NOTE | 2020-04-15 10:50 | NUR ---
Discharge instructions reviewed with patient. Patient verbalizes understanding. Copy given to patient to take home. Discharged via wheelchair to private car for ride home.
--- NOTE | 2020-04-18 07:10 | NUR ---
04/18/20 0710 Alfonso Bourne LATE ENTRY: See Anesthesia record. Bite Block Placed. Patient to ENDO 1 MONITOR INTACT WITH CONTINUOUS PULSE OXIMETRY AND INTERMITTENT BP. O2 VIA N/C INTACT THROUGHOUT SEDATION/PROCEDURE.
== END 2020-04-15 11:09 | disposition home or self-care (01) ==
LOC: ORSCMMR 07:57 → ORD 10:00 → ORSCMMR 11:09
PROVIDERS: Internal Medicine Gastroenterology
PROC: 0DJ08ZZ Inspection of Upper Intestinal Tract, Via Natural or Artificial Opening Endoscopic (ICD-10-PCS; principal; 2020-04-15 10:00)
DX: K70.30 Alcoholic cirrhosis of liver without ascites (principal); K70.10 Alcoholic hepatitis without ascites; K44.9 Diaphragmatic hernia without obstruction or gangrene; J44.9 Chronic obstructive pulmonary disease, unspecified; M79.7 Fibromyalgia; N19 Unspecified kidney failure; Z87.891 Personal history of nicotine dependence; Z79.899 Other long term (current) drug therapy
CPT/HCPCS: J2001; J2250; J2704; J7030

== ENCOUNTER 2020-06-13 10:18 | Emergency (ER) | payer OTHER ==
[~2020-06-13] VITALS: Ht 167.6 cm; Wt 167.8 kg
[~2020-06-13 10:18] MED LIST changes: -IBUP400 PO; -Omeprazole20 M1 PO; -POTA10T PO; -VITAMIN D3125 MC3 PO
--- NOTE | 2020-06-13 12:07 | NUR ---
ED Palliative Care Consult Spoke with Dr Ba and discussed case. Pt has significant wounds and is bed bound. Pt would benefit from discussion regarding goals of care. Pt in the ED for wounds. Pt's medical history and comorbidities include: ETOH Abuse, Depression, Liver Cirrhosis, PNA, COPD with O2 dependence, HTN, Morbid Obesity, and Pressure Ulcers. Joint Pt visit with this RN, Travis Baez, and nursing program chair Cristopher. Pt is A&OX4 with spouse at bedside. Engaged in therapeutic discussion regarding goals of care. Listened as Pt states "I want to get better". Pt reports having a grandchild she wants to live for. Pt reports experiencing significant depression. Pt and spouse Bin report Pt's is bed bound, sleeps in a reclining chair, is incontinent of bowel and bladder, and does not ambulate. Pt requres assistance with bathing and dressing. Explored options for care including higher level of care such as senior living care, SNF, and home health. Provided gentle education on the importance of developing a plan to improve health. Provided gentle education regarding the importance of alcohol cessation and the possible increase in progression of cirrhosis with continued cirrhosis. Discussed hospice as an option as disease process progresses. Discussed consider counceling for depression. Pt reports not wanting to be placed in higher level of care and is agreeable for home health. Nestor reports plan to contact home health for nursing and PT. Nestor will also contact Pt's [employer] bilingual patient support caseworker to consider increased caregiver hours. Nestor will also contact Pt's PCP for possible sooner appointment. Continued therapeutic visit and answered questions. Spoke with Dr Ba and discussed plan. Palliative Care will remain available.
[2020-06-13 14:17] LABS: BASOPHILS ABSOLUTE AUTO 0.08 K/mm3 (0.00-0.23); BASOPHILS PERCENT AUTO 1 % (0-2); EOSINOPHILS ABSOLUTE AUTO 0.29 K/mm3 (0.00-0.68); EOSINOPHILS PERCENT AUTO 3 % (0-6); Hematocrit 32.8 % (33.0-51.0); Hemoglobin 11.4 g/dL (11.5-16.0); IMMATURE GRAN ABSOLUTE AUTO 0.16 K/mm3 (0.00-0.10); IMMATURE GRAN PERCENT AUTO 2 % (0-1); LYMPHOCYTES ABSOLUTE AUTO 1.45 K/mm3 (0.84-5.20); LYMPHOCYTES PERCENT AUTO 14 % (21-46); MONOCYTES ABSOLUTE AUTO 0.92 K/mm3 (0.16-1.47); MONOCYTES PERCENT AUTO 9 % (4-13); Mean Corpuscular HGB 35.5 pg (26.0-34.0); Mean Corpuscular HGB Conc 34.8 g/dL (31.5-36.5); Mean Corpuscular Volume 102 fL (80-100); Mean Platelet Volume 10.2 fL (9.1-12.4); NEUTROPHILS PERCENT AUTO 72 % (41-73); Platelet Count 177 K/mm3 (150-400); RDW Coefficient Variation 17.1 % (11.7-14.2); RDW Standard Deviation 63.7 fL (35.1-46.3); Red Blood Cell Count 3.21 M/mm3 (3.80-5.20)
[2020-06-13 14:38] LABS: Alanine Aminotransfer (ALT/SGP 39 U/L (12-78); Albumin, Blood 1.9 g/dL (3.4-5.0); Albumin/Globulin Ratio 0.5 (0.8-1.8); Alk Phos 238 U/L (50-136); Anion Gap 7 mmol/L (6-16); Aspartate Aminotrans (AST/SGOT 123 U/L (12-37); Bilirubin, Total 7.7 mg/dL (0.1-1.0); Blood Urea Nitrogen 8 mg/dL (8-24); Bun/Creatinine Ratio 11.9 (12.0-20.0); CO2, Blood 36 mmol/L (21-32); Calcium, Blood 8.3 mg/dL (8.5-10.1); Chloride, Blood 82 mmol/L (98-108); Creatinine, Blood 0.67 mg/dL (0.40-1.00); Globulin, Blood 4.1 g/dL (2.2-4.0); Glomerular Filtration Rate >60 (60-); Glucose, Blood 105 mg/dL (70-99); Potassium, Blood 3.7 mmol/L (3.5-5.5); Sodium, Blood 125 mmol/L (136-145); Troponin I <0.015 ng/mL (0.000-0.040)
[2020-06-13] MEDS ORDERED: Keflex500 MG PO (16:12)
[2020-06-13] MEDS ORDERED: DIFLUCAN100 MG PO (16:12)
[2020-06-13] MEDS ORDERED: IBUP800 PO (16:12)
== END 2020-06-13 17:41 | disposition home or self-care (01) ==
LOC: ER 10:18
PROVIDERS: Emergency Medicine
DX: L03.314 Cellulitis of groin (principal); L03.317 Cellulitis of buttock; J44.9 Chronic obstructive pulmonary disease, unspecified; I50.9 Heart failure, unspecified; R60.0 Localized edema; Z88.5 Allergy status to narcotic agent; Z79.899 Other long term (current) drug therapy; Z87.891 Personal history of nicotine dependence
CPT/HCPCS: 36415; 71045; 80053; 83880; 84484; 85025; 93005; 93010; 96365; 99284-25; A9270; J0696

== ENCOUNTER 2020-07-16 13:24 | Emergency (ER) | payer OTHER ==
[~2020-07-16] VITALS: Ht 165.1 cm; Wt 158.8 kg
[~2020-07-16 13:24] MED LIST changes: +DIFLUCAN100 MG PO; +IBUP800 PO; +Keflex500 MG PO
[2020-07-16 14:20] LABS: Source, Urine Clean Catch
[2020-07-16 14:24] LABS: Appearance, Urine Turbid (Clear); Blood, Urine 5+ (Neg); Color, Urine Amber (P-Yellow); Glucose Qualitative, Urine Neg (Neg); Ketones, Urine Neg (Neg); Leukocyte Esterase, Urine 3+ (Neg); Nitrite, Urine Neg (Neg); Protein, Urine 2+ (Neg); Specific Gravity, Urine 1.015 (1.003-1.022); Urobilinogen, Urine 2+ (Normal)
[2020-07-16 14:33] LABS: Bilirubin, Urine 1+ (Neg)
[2020-07-16 14:35] LABS: Bacteria Many /hpf; Squamous Epithelial Cells Not Seen /hpf (Few); White Blood Cells, Urine TNTC /hpf (0-5)
[2020-07-16] MEDS ORDERED: Bactrim Ds Tab1 EACH PO (15:43)
[2020-07-16] MEDS ORDERED: Diflucan150 MG PO (15:45)
== END 2020-07-16 16:26 | disposition home or self-care (01) ==
LOC: ER 13:24
PROVIDERS: Physician Assistant
DX: N39.0 Urinary tract infection, site not specified (principal); Z88.5 Allergy status to narcotic agent; Z79.51 Long term (current) use of inhaled steroids; Z79.899 Other long term (current) drug therapy; Z87.891 Personal history of nicotine dependence
CPT/HCPCS: 51701; 81001; 87077; 87086; 87186; 99284-25; A9270

== ENCOUNTER 2020-07-26 11:17 | Emergency (ER) | payer OTHER ==
[~2020-07-26] VITALS: Ht 165.1 cm; Wt 158.8 kg
[~2020-07-26 11:17] MED LIST changes: +Bactrim Ds Tab1 EACH PO; +Diflucan150 MG PO
[2020-07-26 13:13] LABS: BASOPHILS ABSOLUTE AUTO 0.07 K/mm3 (0.00-0.23); BASOPHILS PERCENT AUTO 1 % (0-2); EOSINOPHILS ABSOLUTE AUTO 0.61 K/mm3 (0.00-0.68); EOSINOPHILS PERCENT AUTO 7 % (0-6); Hematocrit 29.8 % (33.0-51.0); Hemoglobin 10.6 g/dL (11.5-16.0); IMMATURE GRAN ABSOLUTE AUTO 0.05 K/mm3 (0.00-0.10); IMMATURE GRAN PERCENT AUTO 1 % (0-1); LYMPHOCYTES ABSOLUTE AUTO 1.59 K/mm3 (0.84-5.20); LYMPHOCYTES PERCENT AUTO 19 % (21-46); MONOCYTES ABSOLUTE AUTO 0.71 K/mm3 (0.16-1.47); MONOCYTES PERCENT AUTO 9 % (4-13); Mean Corpuscular HGB 36.8 pg (26.0-34.0); Mean Corpuscular HGB Conc 35.6 g/dL (31.5-36.5); Mean Corpuscular Volume 104 fL (80-100); Mean Platelet Volume 9.4 fL (9.1-12.4); NEUTROPHILS ABSOLUTE AUTO 5.29 K/mm3 (1.96-9.15); NEUTROPHILS PERCENT AUTO 64 % (41-73); Platelet Count 138 K/mm3 (150-400); RDW Coefficient Variation 13.9 % (11.7-14.2); RDW Standard Deviation 52.6 fL (35.1-46.3); Red Blood Cell Count 2.88 M/mm3 (3.80-5.20); White Blood Cell Count 8.32 K/mm3 (4.00-11.30)
[2020-07-26 13:33] LABS: Alanine Aminotransfer (ALT/SGP 30 U/L (12-78); Albumin, Blood 1.9 g/dL (3.4-5.0); Albumin/Globulin Ratio 0.5 (0.8-1.8); Alk Phos 182 U/L (50-136); Anion Gap 7 mmol/L (6-16); Aspartate Aminotrans (AST/SGOT 75 U/L (12-37); Blood Urea Nitrogen 7 mg/dL (8-24); Bun/Creatinine Ratio 9.6 (12.0-20.0); CO2, Blood 38 mmol/L (21-32); Calcium, Blood 8.3 mg/dL (8.5-10.1); Chloride, Blood 80 mmol/L (98-108); Creatinine, Blood 0.73 mg/dL (0.40-1.00); Globulin, Blood 3.7 g/dL (2.2-4.0); Glomerular Filtration Rate >60 (60-); Glucose, Blood 99 mg/dL (70-99); Potassium, Blood 3.7 mmol/L (3.5-5.5); Sodium, Blood 125 mmol/L (136-145); Total Protein, Blood 5.6 g/dL (6.4-8.2)
[2020-07-26] MEDS ORDERED: Cleocin HCl300 MG PO (13:54)
== END 2020-07-26 14:51 | disposition home or self-care (01) ==
LOC: ER 11:17
PROVIDERS: Physician Assistant
DX: L03.317 Cellulitis of buttock (principal); L03.116 Cellulitis of left lower limb; L03.115 Cellulitis of right lower limb; J44.9 Chronic obstructive pulmonary disease, unspecified; I50.9 Heart failure, unspecified; Z79.51 Long term (current) use of inhaled steroids; Z79.899 Other long term (current) drug therapy; Z88.5 Allergy status to narcotic agent; Z87.891 Personal history of nicotine dependence
CPT/HCPCS: 71045; 80053; 85025; 99284-25

== ENCOUNTER 2020-08-04 12:34 | Inpatient (IN) | payer OTHER ==
[~2020-08-04] VITALS: Ht 165.1 cm; Wt 150.0 kg
[~2020-08-04 12:34] MED LIST changes: +Cleocin HCl300 MG PO
[2020-08-04 13:33] LABS: BASOPHILS ABSOLUTE AUTO 0.07 K/mm3 (0.00-0.23); BASOPHILS PERCENT AUTO 1 % (0-2); EOSINOPHILS ABSOLUTE AUTO 0.87 K/mm3 (0.00-0.68); EOSINOPHILS PERCENT AUTO 11 % (0-6); Hematocrit 29.3 % (33.0-51.0); Hemoglobin 10.4 g/dL (11.5-16.0); IMMATURE GRAN ABSOLUTE AUTO 0.15 K/mm3 (0.00-0.10); IMMATURE GRAN PERCENT AUTO 2 % (0-1); LYMPHOCYTES ABSOLUTE AUTO 1.62 K/mm3 (0.84-5.20); LYMPHOCYTES PERCENT AUTO 20 % (21-46); MONOCYTES ABSOLUTE AUTO 0.93 K/mm3 (0.16-1.47); MONOCYTES PERCENT AUTO 12 % (4-13); Mean Corpuscular HGB 36.7 pg (26.0-34.0); Mean Corpuscular HGB Conc 35.5 g/dL (31.5-36.5); Mean Corpuscular Volume 104 fL (80-100); Mean Platelet Volume 9.6 fL (9.1-12.4); NEUTROPHILS ABSOLUTE AUTO 4.47 K/mm3 (1.96-9.15); NEUTROPHILS PERCENT AUTO 55 % (41-73); NRBC ABSOLUTE 0.03 K/mm3 (0.00-0.02); NRBC Auto 0.4 /100 WBC (0.0-0.2); Platelet Count 132 K/mm3 (150-400); RDW Coefficient Variation 14.6 % (11.7-14.2); RDW Standard Deviation 52.5 fL (35.1-46.3); Red Blood Cell Count 2.83 M/mm3 (3.80-5.20); White Blood Cell Count 8.11 K/mm3 (4.00-11.30)
[2020-08-04 14:09] LABS: Alanine Aminotransfer (ALT/SGP 28 U/L (12-78); Albumin, Blood 1.9 g/dL (3.4-5.0); Albumin/Globulin Ratio 0.5 (0.8-1.8); Alk Phos 163 U/L (50-136); Anion Gap 3 mmol/L (6-16); Aspartate Aminotrans (AST/SGOT 79 U/L (12-37); Bilirubin, Total 1.5 mg/dL (0.1-1.0); Blood Urea Nitrogen 13 mg/dL (8-24); Bun/Creatinine Ratio 13.4 (12.0-20.0); CO2, Blood 39 mmol/L (21-32); Calcium, Blood 8.3 mg/dL (8.5-10.1); Chloride, Blood 80 mmol/L (98-108); Creatinine, Blood 0.97 mg/dL (0.40-1.00); Globulin, Blood 3.8 g/dL (2.2-4.0); Glomerular Filtration Rate >60 (60-); Glucose, Blood 87 mg/dL (70-99); Magnesium, Blood 1.7 mg/dL (1.6-2.4); Potassium, Blood 4.4 mmol/L (3.5-5.5); Sodium, Blood 122 mmol/L (136-145); Total Protein, Blood 5.7 g/dL (6.4-8.2)
[2020-08-04] MEDS ORDERED: ARIP15 PO (14:52)
[2020-08-04] MEDS ORDERED: TRAZ50 PO (14:52)
[2020-08-04] MEDS ORDERED: FURO40 PO (14:53)
[2020-08-04] MEDS ORDERED: POTA10T PO (14:53)
[2020-08-04] MEDS ORDERED: OMEP20ER PO (14:53)
[2020-08-04] MEDS ORDERED: PROP60 PO (14:54)
[2020-08-04] MEDS ORDERED: VITAMIN D325 MC3 PO (15:04)
[2020-08-04] MEDS ORDERED: IBUP800 PO (15:05)
[2020-08-04 19:14] LABS: Source, Urine Catheter
[2020-08-04 19:17] LABS: Bilirubin, Urine Neg (Neg); Blood, Urine 5+ (Neg); Glucose Qualitative, Urine Neg (Neg); Ketones, Urine Neg (Neg); Leukocyte Esterase, Urine 3+ (Neg); Nitrite, Urine Neg (Neg); Protein, Urine 2+ (Neg); Specific Gravity, Urine 1.015 (1.003-1.022); Urobilinogen, Urine 2+ (Normal)
--- NOTE | 2020-08-04 19:25 | NUR ---
ADMISSION NOTE PT ARRIVED FROM ED VIA GURNEY. TRANSFERED TO BED VIA LIFT. A/O AND COOPERATIVE WITH CARE. PATIENT ON 3-4 L OF 02 VIA NASAL CANNULA. PERFORMED PERICARE AND PARTIAL BEDBATH. DIEGO PLACED, PT TOLERATED WELL. PT COMPLAINS OF "ITCHINESS EVERYWHERE."
[2020-08-04 19:32] LABS: Appearance, Urine Cloudy (Clear); Bacteria Many /hpf; Color, Urine Yellow (P-Yellow); Squamous Epithelial Cells Not Seen /hpf (Few); White Blood Cells, Urine TNTC /hpf (0-5)
--- NOTE | 2020-08-04 19:44 | NUR ---
THIS RN AGREES WITH STUDENT NURSE ADMISSION NOTE.
[2020-08-05 04:06] LABS: BASOPHILS ABSOLUTE AUTO 0.04 K/mm3 (0.00-0.23); BASOPHILS PERCENT AUTO 1 % (0-2); EOSINOPHILS ABSOLUTE AUTO 0.82 K/mm3 (0.00-0.68); EOSINOPHILS PERCENT AUTO 11 % (0-6); Hematocrit 27.2 % (33.0-51.0); Hemoglobin 9.6 g/dL (11.5-16.0); IMMATURE GRAN ABSOLUTE AUTO 0.07 K/mm3 (0.00-0.10); IMMATURE GRAN PERCENT AUTO 1 % (0-1); LYMPHOCYTES ABSOLUTE AUTO 1.38 K/mm3 (0.84-5.20); LYMPHOCYTES PERCENT AUTO 19 % (21-46); MONOCYTES ABSOLUTE AUTO 0.74 K/mm3 (0.16-1.47); MONOCYTES PERCENT AUTO 10 % (4-13); Mean Corpuscular HGB 36.8 pg (26.0-34.0); Mean Corpuscular HGB Conc 35.3 g/dL (31.5-36.5); Mean Corpuscular Volume 104 fL (80-100); Mean Platelet Volume 9.8 fL (9.1-12.4); NEUTROPHILS ABSOLUTE AUTO 4.19 K/mm3 (1.96-9.15); NEUTROPHILS PERCENT AUTO 58 % (41-73); Platelet Count 114 K/mm3 (150-400); RDW Coefficient Variation 14.7 % (11.7-14.2); RDW Standard Deviation 53.5 fL (35.1-46.3); Red Blood Cell Count 2.61 M/mm3 (3.80-5.20); White Blood Cell Count 7.24 K/mm3 (4.00-11.30)
[2020-08-05 04:34] LABS: Alanine Aminotransfer (ALT/SGP 26 U/L (12-78); Albumin, Blood 2.1 g/dL (3.4-5.0); Albumin/Globulin Ratio 0.6 (0.8-1.8); Alk Phos 152 U/L (50-136); Anion Gap 4 mmol/L (6-16); Aspartate Aminotrans (AST/SGOT 54 U/L (12-37); Bilirubin, Total 1.6 mg/dL (0.1-1.0); Blood Urea Nitrogen 14 mg/dL (8-24); Bun/Creatinine Ratio 14.8 (12.0-20.0); CO2, Blood 41 mmol/L (21-32); Calcium, Blood 8.4 mg/dL (8.5-10.1); Chloride, Blood 78 mmol/L (98-108); Creatinine, Blood 0.95 mg/dL (0.40-1.00); Globulin, Blood 3.4 g/dL (2.2-4.0); Glomerular Filtration Rate >60 (60-); Glucose, Blood 94 mg/dL (70-99); Potassium, Blood 3.7 mmol/L (3.5-5.5); Sodium, Blood 123 mmol/L (136-145); Total Protein, Blood 5.5 g/dL (6.4-8.2)
--- NOTE | 2020-08-05 06:31 | NUR ---
SHIFT SUMMARY PT A&O X4. VSS. SPO2 > 92% ON 3L NC. MONITOR SHOWS SR, HR 60's-70's. PT W/ ULCERS TO SACRUM & BACK OF LEGS. PHOTOS IN CHART. NO EVENTS OVER NIGHT. PT UNABLE TO REPOSITION SELF IN BED, USING CEILING LIFT & 3 PEOPLE FOR REPOSITIONING PT IN BED. DIEGO CATH PATENT & DRAINING. PT REPORTS INCONTINENCE PRIOR TO DIEGO INSERTION. NO EVENTS OVER NIGHT.
--- NOTE | 2020-08-05 13:41 | NUR ---
SPOKE WITH PHYSICIAN SPOKE WITH PHSYICIAN REGARDING PT'S PAIN LEVEL IN BILATERAL KNEES. ALSO INFORMED PHYSICIAN PT STATED SHE DRINKS DAILY. HANSAWA'S ORDERED.
--- NOTE | 2020-08-05 15:20 | NUR ---
PHYSICIAN UPDATED INFORMED PHYSICIAN OF PT'S CURRENT CIWA SCORE OF 9. NO ORDERS AT THIS TIME.
--- NOTE | 2020-08-05 18:12 | NUR ---
SHIFT SUMMARY PT ALERT AND ORIENTED X 4 CONFUSED AT TIMES REGARDING DATE/TIME. BP HYPOTENSIVE AT TIMES, MEDICATION GIVEN PER EMAR. SEE EHR. HR STABLE. OXYGEN SATURATION MAINTAINED ABOVE 92% ON 3 L OF OXYGEN VIA NC. THIS IS HOME BASELINE. PT REFUSING CARE. PT REFUSING TO BE TURNED Q 2 HRS. REPORTS TO REFUSE TURNS D/T HAVING PAIN. MEDICATION GIVEN PER EMAR FOR PAIN, PT REPORTS NO RELIEF. PHYSICIAN AWARE OF PT'S PAIN IN BILATERAL KNEES. PT TO SEE PT, SEE NOTES. MEPLEX ON COCCYX FOR PROTECTION. FLUID RESTRICTION IN PLACE THIS AFTERNOON. WILL CONTINUE TO MONITOR UNTIL REPORT GIVEN TO NIGHTSHIFT RN.
--- NOTE | 2020-08-05 19:46 | NUR ---
PHYSICIAN NOTIFIED PHYSICIAN NOTIFIED OF PT'S LOW BP AND LASIX HELD. 500 ML BOLUS ORDERED PER PHYSICIAN.
[2020-08-06 03:54] LABS: Hematocrit 25.8 % (33.0-51.0); Hemoglobin 9.2 g/dL (11.5-16.0); Mean Corpuscular HGB 36.9 pg (26.0-34.0); Mean Corpuscular HGB Conc 35.7 g/dL (31.5-36.5); Mean Corpuscular Volume 104 fL (80-100); Mean Platelet Volume 9.7 fL (9.1-12.4); Platelet Count 102 K/mm3 (150-400); RDW Coefficient Variation 14.7 % (11.7-14.2); RDW Standard Deviation 53.3 fL (35.1-46.3); Red Blood Cell Count 2.49 M/mm3 (3.80-5.20)
[2020-08-06 04:17] LABS: Albumin, Blood 1.9 g/dL (3.4-5.0); Anion Gap 3 mmol/L (6-16); Blood Urea Nitrogen 17 mg/dL (8-24); Bun/Creatinine Ratio 13.8 (12.0-20.0); CO2, Blood 40 mmol/L (21-32); Calcium, Blood 8.2 mg/dL (8.5-10.1); Chloride, Blood 81 mmol/L (98-108); Creatinine, Blood 1.23 mg/dL (0.40-1.00); Ferritin, Serum 279 ng/mL (8-252); Glomerular Filtration Rate 48 (60-); Glucose, Blood 94 mg/dL (70-99); Iron Serum 80 ug/dL (50-170); Magnesium, Blood 1.7 mg/dL (1.6-2.4); Percent Saturation 60.2 % (15.0-50.0); Phosphorus, Blood 3.8 mg/dL (2.5-4.9); Potassium, Blood 4.4 mmol/L (3.5-5.5); Sodium, Blood 124 mmol/L (136-145); Total Iron Binding Capacity 133 ug/dL (250-450)
--- NOTE | 2020-08-06 04:59 | NUR ---
SHIFT SUMMARY PT A&O X 3-4; DENIES CHEST PAIN; VSS; BP WAS SOFT START OF SHIFT, NOW IMPROVED; ORDERED 500 ML NS BOLUS AT SHIFT CHANGE THAT DID IMPROVE BP; O2 SATS >93 ON 3L NC; DIM LUNG SOUNDS; 4+ PITTING EDEMA; DIEGO DRAINING DK FAROOQ; 120 ML TOTAL OUTPUT THIS SHIFT; DR. RIVERA NOTIFIED AND NEW ORDER GIVEN FOR 500 ML BOLUS; CIWA 6-9; PT REFUSED Q 2 TURNS PROVIDED W/ LIFT SHEET, REFUSED AT TIMES; PT SLEPT SEVERAL HOURS; CALL LIGHT IN REACH; BED IN LOWEST POSITION; WILL CONTINUE TO MONITOR CLOSELY UNTIL HAND OFF TO DAY SHIFT RN.
--- NOTE | 2020-08-06 16:04 | NUR ---
ECHOCARDIOGRAM COMPLETED
--- NOTE | 2020-08-06 18:07 | NUR ---
SHIFT SUMMARY PT ALERT AND ORIENTED X 4. PT REFUSED TURNS AT TIMES. PT WORKED WITH PT TODAY. HR STABLE. BP STABLE. OXYGEN SATURATION MAINTAINED ABOVE 92% ON 3 L OF OXYGEN VIA NC. NO CP OR PRESSURE REPORTED. DIEGO PATENT AND TO GRAVITY DRAIN. WILL CONTINEU TO MONITOR UNTIL REPROT GIVEN TO NIGHTSHIFT RN.
--- NOTE | 2020-08-06 19:15 | NUR ---
ASSUMED CARE RECEIVED BEDSIDE REPORT FROM BREN RN; PT ALERT AND TALKING W/ STAFF; DENIES CHEST PAIN; VSS; O2 SATS >93 ON 3L NC; DIEGO IN PLACE, PATENT & DRAINING; 4+ PITTING EDEMA IN BILATERAL EXTREMITIES; CURRENTLY WATCHING TV W/ NO DISTRESS NOTED; BELONGINGS AND CALL LIGHT IN REACH; BED IN LOWEST POSITION.
[2020-08-07 04:24] LABS: Alanine Aminotransfer (ALT/SGP 25 U/L (12-78); Albumin, Blood 2.5 g/dL (3.4-5.0); Albumin/Globulin Ratio 0.8 (0.8-1.8); Alk Phos 126 U/L (50-136); Anion Gap 2 mmol/L (6-16); Aspartate Aminotrans (AST/SGOT 72 U/L (12-37); Bilirubin, Total 1.7 mg/dL (0.1-1.0); Blood Urea Nitrogen 18 mg/dL (8-24); Bun/Creatinine Ratio 18.1 (12.0-20.0); CO2, Blood 42 mmol/L (21-32); Calcium, Blood 8.7 mg/dL (8.5-10.1); Chloride, Blood 84 mmol/L (98-108); Glomerular Filtration Rate >60 (60-); Glucose, Blood 92 mg/dL (70-99); Potassium, Blood 4.4 mmol/L (3.5-5.5); Sodium, Blood 128 mmol/L (136-145); Total Protein, Blood 5.5 g/dL (6.4-8.2)
--- NOTE | 2020-08-07 11:34 | NUR ---
REPORT GIVEN REPORT GIVEN TO MEDICAL FLOOR RN. PT TO BE TRANSPORTED TO MEDICAL FLOOR ROOM 325 WITH BRENDAN AND CHART.
--- NOTE | 2020-08-07 16:43 | NUR ---
SHIFT SUMMARY PT AWAKE MOST OF TODAY. VERY QUIET. DOES NOT SAY MUCH TO STAFF OF DOCTORS. WILL TALK TO A LITTLE MORE. REPORTED PT TEARFUL TODAY. SPIRITUAL CARE CONSULT ORDERED PER REQUEST. DR SHEFFIELD IN TO SEE PT THIS AM. NEW ORDERS PLACED. PT REQUESTED SOMETHING TO HELP HIM SLEEP. DR STOKES IN TO SEE PT WITH PALLIATIVE CARE RN. DR STOKES DISCUSSED PLAN OF CARE AND WAITING FOR LAB RESULTS R/T HEPATITIS PANEL AND TB SEND OUT. CURRENTLY PENDING. IF RESULTS BACK TODAY, WILL START PT ON NEW MEDICATION TONIGHT. PT'S IN TODAY, DURING VISITING HRS. ASSISTED PT WITH BED BATH. PT REFUSED SHOWER. TOLD HE COULDNT TOLERATE IT. OFFERED SHOWER CHAIR AND ASSISTANCE, BUT DECLINED. RT TX REQUESTED AND GIVEN. PT RESTING QUIETLY AT THIS TIME. AT BS. CALL LT IN REACH.
--- NOTE | 2020-08-07 16:57 | NUR ---
SHIFT SUMMARY 12:30 RECEIVED PT TO RM 325 FROM PCU 11. PT REMAINED IN BED D/T MORBID OBESITY. LIFT SHEET UNDER PT. ADMITTED FOR ANASARCA, HYPONATREMIA, AND UTI. DIEGO TO GRAVITY; PATENT AND DRAINING DARK YELLOW URINE. PT IS INCONTINENT OF BOWELS WITH WOUNDS TO BUTTOCKS. MEPILEX CHANGED AGAIN TONIGHT D/T BEING SOILED. PT WITH WEEPING EDEMA TO ARMS, LEGS, AND ABD. REDNESS TO ABD SKIN FOLDS AND UNDER BREASTS; NYSTATIN PWD ORDERED AND APPLIED. PT ON 1.5L FR. PT HAS BEEN VERY COMPLIANT. VERY GRATEFUL FOR CARE GIVEN. HX OF CHRONIC ETOH ABUSE, LIVER CIRRHOSIS, ANXIETY AND DEPRESSION. PER REPORT, PT HAS BEEN DAILY DRINKER. CHRONIC PAIN TO BL KNEES. LIDOCAINE PATCHES APPLIED. LUNGS T/O WITH EXP WHEEZES. PER REPORT, SS CONSULT ORDERED FOR POSSIBLE PLACEMENT, PT'S HAS BEEN CAREGIVER. PT HAS BEEN BED BOUND FOR THE LAST YEAR AND REMAINED IN URINE AT HOME, D/T INCONTINENCE AND OBESITY. GOAL IS FOR PT TO BEGIN WORKING WITH P/T AND REDUCE WT TO BECOME MORE MOBILE AGAIN. CALL LT IN REACH. PT ABLE TO MAKE NEEDS KNOWN.
--- NOTE | 2020-08-08 03:44 | NUR ---
BACK GRINDER SUMMARY A/O X4, BEDREST WITH USE OF LIFT FOR Q2 TURNS. SEVERE SWELLING T/O WITH WEEPING TO BLE. C/O KNEE PAIN, MEDICATED PER EMAR X1. DIEGO PATENT. BOWEL CARE HELD D/T SEVERAL LOOSE STOOLS. VSS, NO ACUTE CHANGES AT THIS TIME. BED IN LOWEST POSITION WITH CALL LIGHT IN REACH. WILL CONTINUE TO MONITOR AND REPORT TO ONCOMING RN.
[2020-08-08 05:41] LABS: Albumin, Blood 2.7 g/dL (3.4-5.0); Anion Gap 3 mmol/L (6-16); Blood Urea Nitrogen 20 mg/dL (8-24); CO2, Blood 41 mmol/L (21-32); Calcium, Blood 8.7 mg/dL (8.5-10.1); Chloride, Blood 87 mmol/L (98-108); Creatinine, Blood 0.87 mg/dL (0.40-1.00); Glomerular Filtration Rate >60 (60-); Glucose, Blood 79 mg/dL (70-99); Phosphorus, Blood 3.1 mg/dL (2.5-4.9); Potassium, Blood 4.6 mmol/L (3.5-5.5); Sodium, Blood 131 mmol/L (136-145)
--- NOTE | 2020-08-08 17:30 | NUR ---
SHIFT SUMMARY PT WORKED WITH PHYSICAL THERAPY ON LEG EXERCISES IN BED TODAY. PT VERBALIZES "I WANT TO WALK AGAIN". PT SEEMS ENCOURAGED & EXCITED ABOUT MAKING THIS HAPPEN. PT STATES HER SON WILL BE IN LATER TODAY TO SEE HER & PT SEEMS FURTHER ENCOURAGED BY THIS. NO ACUTE CHANGES IN ASSESSMENT AT THIS TIME. CATHETER CARE COMPLETED. PT MEDICATED FOR A CIWA OF 9 ONCE TODAY WITH LIBRIUM. OTHERWISE, CIWAS STABLE. PT MEDICATED FOR PAIN ONCE TODAY FOR HER KNEE. PT RESTING IN BED. CALL LIGHT IN REACH. DENIES OTHER NEEDS AT THIS TIME. VS REVIEWED.
--- NOTE | 2020-08-09 03:17 | NUR ---
BILLING ASSOCIATE SUMMARY A/OX4, PLEASANT AND COOPERATIVE WITH CARE. BEDBOUND AT BASELINE, USE OF LIFT WELL FREQUENT REPOSITIONING. SEVERE SWELLING T/O WITH WEEPING TO BLE'S. C/O HEADACHE, MEDCIATED PER EMAR. CURRENTLY ON 3L VIA NC WITH SATS GREATER THAN 92. TELE RUNNING SR IN THE 70S. VSS, NO ACUTE CHANGES AT THIS TIME. BED IN LOWEST POSITION WITH CALL LIGHT IN REACH. WILL CONTINUE TO MONITOR AND REPORT TO ONCOMING RN.
[2020-08-09 05:51] LABS: Alanine Aminotransfer (ALT/SGP 27 U/L (12-78); Alk Phos 107 U/L (50-136); Anion Gap 2 mmol/L (6-16); Aspartate Aminotrans (AST/SGOT 63 U/L (12-37); Bilirubin, Direct 1.1 mg/dL (0.0-0.3); Bilirubin, Indirect 0.8 mg/dL (0.1-0.7); Bilirubin, Total 1.9 mg/dL (0.1-1.0); Blood Urea Nitrogen 24 mg/dL (8-24); Bun/Creatinine Ratio 27.7 (12.0-20.0); CO2, Blood 42 mmol/L (21-32); Calcium, Blood 9.3 mg/dL (8.5-10.1); Chloride, Blood 88 mmol/L (98-108); Creatinine, Blood 0.87 mg/dL (0.40-1.00); Glomerular Filtration Rate >60 (60-); Glucose, Blood 88 mg/dL (70-99); Phosphorus, Blood 3.1 mg/dL (2.5-4.9); Sodium, Blood 132 mmol/L (136-145)
--- NOTE | 2020-08-09 17:10 | NUR ---
PT IS A/OX3, PLEASANT AND COOPERATIVE, APPEARS TO BE BREATHING EASILY AT REST ON O2 @ 3L/MIN HER BASELINE, THE PT SO FAR THIS SHIFT HAS DENIED ANY PAIN, N/V OR SOB, THE PT DECLINED TO GET UP TO THE CHAIR THIS AFTERNOON TO WORK WITH THE PHYSICAL THERAPIST, DUE TO A VISIT FROM HER SON THAT SHE HAS NOT SEEN FOR 6 YEARS PER THE PT, CALL LIGHT IN REACH WILL CONTINUE TO MONITOR AND ASSESS FOR CHANGES, PT IS ON A AIR BED, THE PT DID DO SOME EXCERCISES IN THE BED TODAY PER PT
--- NOTE | 2020-08-10 04:08 | NUR ---
SHIFT SUMMARY ADMITTED FOR ANASARCA. FULL CODE. 1500 ML FLUID RESTRICTION. PLAN IS FOR PHYSICAL THERAPY. PT NEEDS TO BE ABLE TO STAND & TRANSFER TO BE PLACED IN A SNF. SHE WAS LIVING AT HOME WITH HER , WHO CAN NO LONGER CARE FOR HER. SHE HAS BECOME BEDRIDDEN. SHE IS ON 3 LPM O2 @ HOME. DIEGO CATHETER IS IN PLACE. SHE REQUESTED PAIN MEDICATION FOR BILATERAL KNEE PAIN.
[2020-08-10 05:22] LABS: BASOPHILS ABSOLUTE AUTO 0.05 K/mm3 (0.00-0.23); BASOPHILS PERCENT AUTO 1 % (0-2); EOSINOPHILS PERCENT AUTO 11 % (0-6); Hematocrit 25.9 % (33.0-51.0); Hemoglobin 8.7 g/dL (11.5-16.0); IMMATURE GRAN ABSOLUTE AUTO 0.09 K/mm3 (0.00-0.10); IMMATURE GRAN PERCENT AUTO 1 % (0-1); LYMPHOCYTES ABSOLUTE AUTO 1.44 K/mm3 (0.84-5.20); LYMPHOCYTES PERCENT AUTO 18 % (21-46); MONOCYTES ABSOLUTE AUTO 1.08 K/mm3 (0.16-1.47); MONOCYTES PERCENT AUTO 13 % (4-13); Mean Corpuscular HGB 36.4 pg (26.0-34.0); Mean Corpuscular HGB Conc 33.6 g/dL (31.5-36.5); Mean Corpuscular Volume 108 fL (80-100); Mean Platelet Volume 9.6 fL (9.1-12.4); NEUTROPHILS ABSOLUTE AUTO 4.59 K/mm3 (1.96-9.15); NEUTROPHILS PERCENT AUTO 56 % (41-73); Platelet Count 111 K/mm3 (150-400); RDW Coefficient Variation 15.7 % (11.7-14.2); RDW Standard Deviation 59.7 fL (35.1-46.3); Red Blood Cell Count 2.39 M/mm3 (3.80-5.20); White Blood Cell Count 8.15 K/mm3 (4.00-11.30)
[2020-08-10 06:06] LABS: Anion Gap 0 mmol/L (6-16); Blood Urea Nitrogen 23 mg/dL (8-24); Bun/Creatinine Ratio 27.1 (12.0-20.0); CO2, Blood 42 mmol/L (21-32); Calcium, Blood 9.6 mg/dL (8.5-10.1); Chloride, Blood 91 mmol/L (98-108); Creatinine, Blood 0.85 mg/dL (0.40-1.00); Glomerular Filtration Rate >60 (60-); Glucose, Blood 97 mg/dL (70-99); Potassium, Blood 4.9 mmol/L (3.5-5.5); Sodium, Blood 133 mmol/L (136-145)
--- NOTE | 2020-08-10 19:30 | NUR ---
SHIFT SUMMARY PT AxOx4. PLEASANT AND COOPERATIVE WITH CARE. PT UP IN RECLINER TODAY FOR SHORT PERIOD OF TIME. WORKED WITH PHYSICAL THERAPY TODAY WITH SOME PROGRESS. PT HAD CONTINENT BM TODAY. DIEGO CATH PATENT AND DRAINING TO GRAVITY. PT COMPLIANT WITH 1500L FLUID RESTRICTION THIS SHIFT. DR TIFFANIE CONNELLY'D ORDER FOR NO IV ACCESS AFTER PT'S IV WAS ACCIDENTLY PULLED TODAY. ALL MEDS CHANGED TO ORAL. PT BREATHING WITHOUT DIFFICULTY ON 2-3L O2. PT REPORTS PAIN IN KNEES TODAY. MEDICATED PER EMAR. VITALS REVIEWED. CURRENTLY RESTING IN BED WITH CALL LIGHT IN REACH. DENIES ANY NEEDS AT THIS TIME.
--- NOTE | 2020-08-11 03:59 | NUR ---
SHIFT SUMMARY ADMITTED FOR ANASARCA. FOUND TO HAVE UTI. FULL CODE. WORKING WITH PT/OT TO ENABLE THE PT TO STAND/PIVOT TRANSFER, THEN PLAN IS FOR DC TO SNF. SHE HAS PREVIOUSLY BEEN LIVING WITH HER SPOUSE AND HAS BEEN BEDBOUND. MORBIDLY OBESE. WE HAVE A LIFT FOR TRANSFERS, AIRBED. SHE HAS BILATERAL OSTEOARTHRITIS IN HER KNEES AND REQUESTS PAIN MEDICATION FOR THAT. DIEGO FOR STRICT I&O'S. SHE IS EDEMATOUS, EXTREMETIES ARE ELEVATED.
--- NOTE | 2020-08-11 07:48 | NUR ---
PHYSICIAN NOTIFIED TIFFANIE NOTIFED OF BP BEING 85/53. SHE ORDERED TO HOLD THE LASIX THIS AM AND GIVE THE BUSPAR.
--- NOTE | 2020-08-11 17:07 | NUR ---
SHIFT SUMMARY NO ACUTE CHANGES T/O SHIFT, CALM AND COOPERATIVE c CARE, A&O. PT ON 3 L/MIN NC, THIS IS BASELINE. BP WAS 85/53 THIS AM, PO LASIX WAS HELD PER MD ORDERS, MIDODRINE ADMINISTER. BP STABLIZED. PT WAS UP TO CHAIR THIS AM AFTER BREAKFAST, WORKED WITH PT/OT. MEPILEX X3 APPLIED TO BOTTOM THIS SHIFT. AWAITING PLACEMENT, GOAL IS FOR PT TO BE ABLE TO STAND PIVOT PRIOR TO DC. PT UNABLE TO STAND PIVOT PRIOR TO ADMISSION. PT IS CURRENTLY RESTING IN BED, CALL LIGHT WITHIN REACH. CALLS APPROPRIATELY. DENIES ANY DISTRESS T/O SHIFT.
--- NOTE | 2020-08-12 04:02 | NUR ---
SHIFT SUMMARY ADMITTED FOR ANASARCA. FOUND TO HAVE UTI. FULL CODE. 1500 ML FLUID RESTRICTION. DIEGO IN PLACE FOR STRICT I&O'S. LIFT PT. AIRBED. 2 LPM O2 IS BASELINE. MEPILEX TO COCCYX AND BUTTOCKS. OSTEOARTHRITIS BILAT KNEES, CHRONIC PAIN. PLAN IS FOR PHYSICAL AND OCCUPATIONAL THERAPY TO WORK WITH THIS PT. ONCE SHE CAN TRANSFER, SHE CAN BE PLACED IN SNF. RUNS HYPOTENSIVE. NO NEW CONCERNS THIS SHIFT
[2020-08-12 05:58] LABS: BASOPHILS ABSOLUTE AUTO 0.08 K/mm3 (0.00-0.23); BASOPHILS PERCENT AUTO 1 % (0-2); EOSINOPHILS ABSOLUTE AUTO 0.77 K/mm3 (0.00-0.68); EOSINOPHILS PERCENT AUTO 10 % (0-6); Hematocrit 26.8 % (33.0-51.0); Hemoglobin 9.1 g/dL (11.5-16.0); IMMATURE GRAN ABSOLUTE AUTO 0.06 K/mm3 (0.00-0.10); IMMATURE GRAN PERCENT AUTO 1 % (0-1); LYMPHOCYTES ABSOLUTE AUTO 1.55 K/mm3 (0.84-5.20); LYMPHOCYTES PERCENT AUTO 20 % (21-46); MONOCYTES ABSOLUTE AUTO 1.03 K/mm3 (0.16-1.47); MONOCYTES PERCENT AUTO 13 % (4-13); Mean Corpuscular Volume 109 fL (80-100); Mean Platelet Volume 9.5 fL (9.1-12.4); NEUTROPHILS PERCENT AUTO 55 % (41-73); Platelet Count 135 K/mm3 (150-400); RDW Coefficient Variation 16.3 % (11.7-14.2); RDW Standard Deviation 63.6 fL (35.1-46.3); Red Blood Cell Count 2.46 M/mm3 (3.80-5.20); White Blood Cell Count 7.69 K/mm3 (4.00-11.30)
[2020-08-12 06:23] LABS: Anion Gap 0 mmol/L (6-16); Blood Urea Nitrogen 27 mg/dL (8-24); Bun/Creatinine Ratio 33.5 (12.0-20.0); CO2, Blood 42 mmol/L (21-32); Calcium, Blood 9.3 mg/dL (8.5-10.1); Chloride, Blood 93 mmol/L (98-108); Creatinine, Blood 0.81 mg/dL (0.40-1.00); Glomerular Filtration Rate >60 (60-); Glucose, Blood 94 mg/dL (70-99); Potassium, Blood 4.6 mmol/L (3.5-5.5); Sodium, Blood 135 mmol/L (136-145)
--- NOTE | 2020-08-12 17:09 | NUR ---
SHIFT SUMMARY NO ACUTE CHANGES THIS SHIFT, VSS, A&O. COOPERATIVE c CARE, WORKED c PT/OT TODAY. WAS UP IN CHAIR FOR ABOUT AN HOUR TODAY. BM X2. TREATED FOR PAIN OF THE BILATERAL KNEES X1. NEW MEPILEXES APPLIED TO PRESSURE ULCERS LOCATED ON COCCYX AND BACK ON SHINS. METAL SPRAYER MACHINED PARTS COLSULT COMPLETED TODAY. HOSPITALIST DISCUSSED DISCHARGE OPTIONS AND PT DID NOT LIKE THE IDEA BEING PLACED IN A FACILITY OUTSIDE OF [place]. PT REMAINS ON 3 L/MIN NC, THIS IS BASELINE. DIEGO PATENT AND DRAINING. DIURETICS CONTINUES, PT STILL HAS EDEMA T/O. PT IS CURRENTLY RESTING IN BED WATCHING TV. CALL LIGHT IS WITHIN REACH. CALLS APPROPRIATELY.
--- NOTE | 2020-08-13 05:13 | NUR ---
SHIFT SUMMARY: VSS. AFEB. AAOX4. ABLE TO COMMUNICATE NEEDS. 02 88-92% ON 3L VIA NC, RT INCREASED 02 TO 5L, 02 92% AT THIS TIME. PT RAISED UP IN BED, HOB REMAINS ELEVATED. STATES SHE WOKE UP FEELING SOB AND COUGHING ONCE AT THE START OF THE NIGHT. EXPIRATORY WHEEZE AUSCULTATED, IMPROVED W/ NEB TX. PT REPORTS MINOR SOB. COUGH PRODUCING SMALL AMT OF WHITE SPUTUM. F/C PATENT AND DRAINING TO GRAVITY. INCONTINENT OF STOOL. DRESSINGS TO BUTTOCKS AND LEGS CDI. BARRIATRIC BED SET TO ROTATE PT. NO ACUTE OVERNIGHT EVENTS. WCTM..
--- NOTE | 2020-08-13 18:09 | NUR ---
SHIFT SUMMARY PT AxOx4. PLEASANT AND COOPERATIVE WITH CARE. PT WORKED WITH PHYSICAL THERAPY TODAY. UNABLE TO GET BARIATRIC RECLINER, THEREFORE PATIENT WAS ONLY ABLE TO WORK FROM BED. PER PT, HOPING TO GET RECLINER ON SATURDAY. PT C/O BACK ITCHING AND PAIN MEDS NOT WORKING WELL. ORDERED INCREASED BENADRYL DOSE AND CHANGED PAIN MEDS. PT REPORTS RELIEF WITH MED CHANGES. BED BATH AND CATH CARE DONE TODAY. SULEMA, SPOUSE IN FOR VISIT, AND PROVIDED UPDATE ON CARE PLAN. PT BREATHING WITHOUT DIFFICULTY ON 3L O2. REQUESTED ONE BREATHING TREATMENT. ATTEMPTED TO REMOVE RING ON R HAND, BUT UNABLE D/T SWELLING. VITALS REVIEWED. PT CURRENTLY RESTING IN BED EATING DINNER. CALL LIGHT IN REACH. DENIES ANY NEEDS AT THIS TIME.
--- NOTE | 2020-08-14 03:23 | NUR ---
SHIFT SUMMARY: AFEB. HR 103. BP 99/59. 02 93% ON 3L VIA NC. LSTA W/ DIM BASES. F/C PATENT AND DRAINING FAROOQ URINE. CONT W/ ANASARCA. EXTREMITIES ELEVATED ON PILLOWS. PT APPEARS TO HAVE SLEPT MOST OF THE NIGHT. NO ACUTE OVERNIGHT EVENTS. WCTM.
[2020-08-14 05:30] LABS: BASOPHILS ABSOLUTE AUTO 0.06 K/mm3 (0.00-0.23); BASOPHILS PERCENT AUTO 1 % (0-2); EOSINOPHILS ABSOLUTE AUTO 0.84 K/mm3 (0.00-0.68); EOSINOPHILS PERCENT AUTO 12 % (0-6); Hematocrit 26.5 % (33.0-51.0); Hemoglobin 8.9 g/dL (11.5-16.0); Mean Corpuscular HGB 36.5 pg (26.0-34.0); Mean Corpuscular HGB Conc 33.6 g/dL (31.5-36.5); Mean Corpuscular Volume 109 fL (80-100); Mean Platelet Volume 9.6 fL (9.1-12.4); Platelet Count 142 K/mm3 (150-400); RDW Coefficient Variation 16.7 % (11.7-14.2); RDW Standard Deviation 63.9 fL (35.1-46.3); Red Blood Cell Count 2.44 M/mm3 (3.80-5.20); White Blood Cell Count 7.14 K/mm3 (4.00-11.30)
[2020-08-14 05:37] LABS: IMMATURE GRAN ABSOLUTE AUTO 0.04 K/mm3 (0.00-0.10); IMMATURE GRAN PERCENT AUTO 1 % (0-1); LYMPHOCYTES ABSOLUTE AUTO 1.81 K/mm3 (0.84-5.20); LYMPHOCYTES PERCENT AUTO 25 % (21-46); MONOCYTES ABSOLUTE AUTO 1.09 K/mm3 (0.16-1.47); MONOCYTES PERCENT AUTO 15 % (4-13); NEUTROPHILS PERCENT AUTO 46 % (41-73)
[2020-08-14 05:57] LABS: Alanine Aminotransfer (ALT/SGP 26 U/L (12-78); Albumin, Blood 2.6 g/dL (3.4-5.0); Albumin/Globulin Ratio 0.8 (0.8-1.8); Alk Phos 96 U/L (50-136); Anion Gap 0 mmol/L (6-16); Aspartate Aminotrans (AST/SGOT 65 U/L (12-37); Bilirubin, Total 1.4 mg/dL (0.1-1.0); Blood Urea Nitrogen 27 mg/dL (8-24); Bun/Creatinine Ratio 38.1 (12.0-20.0); CO2, Blood 40 mmol/L (21-32); Chloride, Blood 98 mmol/L (98-108); Creatinine, Blood 0.71 mg/dL (0.40-1.00); Globulin, Blood 3.1 g/dL (2.2-4.0); Glomerular Filtration Rate >60 (60-); Glucose, Blood 92 mg/dL (70-99); Potassium, Blood 4.3 mmol/L (3.5-5.5); Sodium, Blood 138 mmol/L (136-145); Total Protein, Blood 5.7 g/dL (6.4-8.2)
--- NOTE | 2020-08-14 18:12 | NUR ---
SUMMARY- PT A/O X4, FLAT AFFECT. CALM AND COOPERATIVE AND THANKFUL FOR CARE. TOLERATING FOOD AND FLUIDS. DIURESING PT AND PT REMIANS ON FLUID RESTRICTION. DIEGO FOR I/O. BP TRENDS LOW, MIDODRINE GIVEN ROUTINE. PT GIVEN A PARTIAL BED BATH, CLEANSED ALL SKIN FOLDS AND APPLIED MICONAZOLE POWDER. REAPPLIED MEPILEX TO GLUT ON 3 OPEN AREAS. 2 ON CALF REMAIN INTACT. UNTER BREASTS AND ARMS SKIN LOOKS INTACT AND NO YEAST. DIEGO CARE DONE. PT MEDICATED WITH PERCOCET TWICE TODAY WITH PARTIAL RELEIF BUT SPOKE WITH THE DR STATING NOT ENOUGH RELEIF. PERCOCET DC'D AND OXYCOCONE 10MG ORDERED. GIVEN ATERAX FOR ITCHING WITH STATED REIEIF. UNABLE TO GET OOB TODAY CHAIR IS TOO SMALL. CONT O2 3L, LUNGS DIM IN BASES. WILL REPORT ALL TO VERONICA TAYLOR.
[2020-08-15 05:23] LABS: Hematocrit 27.4 % (33.0-51.0); Hemoglobin 9.1 g/dL (11.5-16.0); Mean Corpuscular HGB 36.3 pg (26.0-34.0); Mean Corpuscular HGB Conc 33.2 g/dL (31.5-36.5); Mean Corpuscular Volume 109 fL (80-100); Mean Platelet Volume 9.3 fL (9.1-12.4); Platelet Count 142 K/mm3 (150-400); RDW Coefficient Variation 17.1 % (11.7-14.2); RDW Standard Deviation 66.2 fL (35.1-46.3); Red Blood Cell Count 2.51 M/mm3 (3.80-5.20); White Blood Cell Count 7.98 K/mm3 (4.00-11.30)
[2020-08-15 06:05] LABS: Triiodothyronine, Free 1.47 pg/mL (2.18-3.98)
[2020-08-15 06:06] LABS: Alanine Aminotransfer (ALT/SGP 29 U/L (12-78); Albumin, Blood 2.5 g/dL (3.4-5.0); Albumin/Globulin Ratio 0.8 (0.8-1.8); Alk Phos 94 U/L (50-136); Anion Gap 3 mmol/L (6-16); Aspartate Aminotrans (AST/SGOT 66 U/L (12-37); Bilirubin, Total 1.4 mg/dL (0.1-1.0); Blood Urea Nitrogen 25 mg/dL (8-24); Bun/Creatinine Ratio 36.5 (12.0-20.0); CO2, Blood 39 mmol/L (21-32); Calcium, Blood 8.5 mg/dL (8.5-10.1); Chloride, Blood 96 mmol/L (98-108); Creatinine, Blood 0.68 mg/dL (0.40-1.00); Globulin, Blood 3.1 g/dL (2.2-4.0); Glomerular Filtration Rate >60 (60-); Glucose, Blood 88 mg/dL (70-99); Potassium, Blood 2.8 mmol/L (3.5-5.5); Sodium, Blood 138 mmol/L (136-145); Total Protein, Blood 5.6 g/dL (6.4-8.2)
[2020-08-15 07:58] LABS: Free Thyroxine 0.9 ng/dL (0.70-1.60); Thyroid Stimulating Hormone 28.2 uIU/mL (0.360-4.800)
--- NOTE | 2020-08-15 19:59 | NUR ---
SHIFT SUMMARY- PT ALERT AND ORIENTED. SHE WORKED WITH OT TODAY WITH BED MOBILITY EXERCISES AND BECAME VERY SOB. PER REPORT FROM OT PT O2 SATS DROPPED TO 84% AND TOOK A WHILE TO RECOVER. CALLED RT TO COME DO A BREATHING Tx PT HAD AUDIBLE WHEEZES AT THAT TIME. SPOKE TO DR VICK THIS MORNING ABOUT THE PT BP MEDS AND DIURETIC SCHEDULED MEDS PARAMETERS RECIEVED AND PLACED IN ORDER MANAGEMENT. PT IN BED CALL LIGHT IN REACH NO S&S OF DISTRESS NOTED AT THE TIME OF SHIFT CHANGE, PASSED ALL ON IN REPORT TO NIGHT RN.
--- NOTE | 2020-08-16 04:06 | NUR ---
SHIFT SUMMARY ADMITTED FOR ANASARCA. FULL CODE. PLAN IS FOR PHYSICAL THERAPY/OCCUPATIONAL THERAPY, WEIGHT LOSS - HOPEFUL FOR PLACEMENT IN A SNF. SHE IS MORBIDLY OBESE AND BEDRIDDEN. DIEGO CATHETER IS IN PLACE. 3 LPM O2 VIA NC @ BASELINE. MIDODRINE IN EMAR WITH PARAMETERS, LASIX WITH PARAMETERS WELL. NO NEW CONCERNS THIS SHIFT
--- NOTE | 2020-08-16 07:13 | NUR ---
ASSUMED CARE OF PT- REPORT COMPLETED WITH NIGHT RN. PER REPORT NO CHANGE T/O THE NIGHT. PT IN BED, CALL LIGHT IN REACH. PT STATES SHE IS SLEEPY THIS MORNING. EDEMA IN BLE SEEMS MINIMALLY IMPROVED THIS MORNING. MEPILEX ON CALVES C/D/I AT THIS TIME WILL CTM. PT STATES KNEE PAIN 9/10 THIS AM. WILL MEDICATE PRN.
[2020-08-16 08:25] LABS: Anion Gap 6 mmol/L (6-16); Blood Urea Nitrogen 25 mg/dL (8-24); Bun/Creatinine Ratio 35.4 (12.0-20.0); CO2, Blood 38 mmol/L (21-32); Calcium, Blood 8.5 mg/dL (8.5-10.1); Chloride, Blood 97 mmol/L (98-108); Creatinine, Blood 0.71 mg/dL (0.40-1.00); Glomerular Filtration Rate >60 (60-); Glucose, Blood 91 mg/dL (70-99); Potassium, Blood 2.7 mmol/L (3.5-5.5); Sodium, Blood 141 mmol/L (136-145)
--- NOTE | 2020-08-16 18:56 | NUR ---
SHIFT SUMMARY- PT ALERT AND ORIENTED. PT WORKED WITH PHYSICAL THERAPY AND OT FOR BED MOBILITY. PT USED THE BED VELASQUEZ AND HAD A BM, DRESSING CHANGE DONE ON THE PT COCCYX, MEPILEX CHANGED. BP SEEMS TO BE MORE STABLE, PT HAS HAD NO EPISODES OF SOB WHERE SHE REQUESTED A BREATHING Tx. PT CURRENTLY IN BED CALL LIGHT IN REACH, NO S&S OF DISTRESS. PT STATED PAIN WELL MANAGED AT THIS TIME. PASSED ALL ON IN BEDSIDE REPORT TO NIGHT CLAUDIA DUMONT.
--- NOTE | 2020-08-17 04:26 | NUR ---
SHIFT SUMMARY PT ADMITTED FOR GENERALIZED SWELLING. FULL CODE. ON 3L O2 BASELINE. PLAN TO GET PT UP TO RECLINER TOMORROW AND CONTINUE WITH PHYSICAL THERAPY. PT INCREASING IN STRENGTH AND ASSISTING WITH LOGROLLING DURING CHANGES. AWAITING PLACEMENT. NO NEW CONCERNS THIS SHIFT.
--- NOTE | 2020-08-17 05:52 | NUR ---
BIN WORKER/CTA I HAVE ROUNDED WITH THIS STUDENT. I HAVE PERSONALLY ASSESSED THIS PT AND I HAVE READ THIS STUDENT'S CHARTING. I AGREE WITH THIS STUDENT'S ASSESSMENT
[2020-08-17 06:47] LABS: Anion Gap 5 mmol/L (6-16); Blood Urea Nitrogen 23 mg/dL (8-24); Bun/Creatinine Ratio 32.4 (12.0-20.0); CO2, Blood 39 mmol/L (21-32); Calcium, Blood 8.8 mg/dL (8.5-10.1); Chloride, Blood 96 mmol/L (98-108); Creatinine, Blood 0.71 mg/dL (0.40-1.00); Glomerular Filtration Rate >60 (60-); Glucose, Blood 92 mg/dL (70-99); Potassium, Blood 2.7 mmol/L (3.5-5.5); Sodium, Blood 140 mmol/L (136-145)
--- NOTE | 2020-08-17 18:58 | NUR ---
SHIFT SUMMARY- PT ALERT AND ORIENTED. PT HAS GAINED MOBILITY IN THE LAST THREE DAYS. SHE CAN NOW RAISE BOTH ARMS OVER HER HEAD AND LIFT HER LEGS WITH STAFF ASSISTANCE. PT HAS BEEN TAKING MEDS WHOLE IN APPLE SAUCE (POTASSIUM MELTS IN THE APPLE SAUCE) THIS IS BECAUSE THE PT IS ON A FLUID RESTRICTION, SO SHE DOES NOT HAVE TO DRINK A LOT OF WATER TO TAKE HER MEDS. PT IN BED CALL LIGHT IN REACH SHE CALLS APPROPRIATELY. PT HAS MIDODRIENE ORDERED LAST DOSE NOT GIVEN YET, PT SBP GREATER THAN 130 BUT SHE RECIEVED LASIX AND SPIRONOLACTONE AT THAT TIME WILL PASS ON TO NIGHT RN IN BEDSIDE REPORT.
[2020-08-18 06:16] LABS: Albumin, Blood 2.4 g/dL (3.4-5.0); Anion Gap 4 mmol/L (6-16); Blood Urea Nitrogen 20 mg/dL (8-24); Bun/Creatinine Ratio 28.7 (12.0-20.0); CO2, Blood 41 mmol/L (21-32); Calcium, Blood 8.5 mg/dL (8.5-10.1); Chloride, Blood 95 mmol/L (98-108); Glomerular Filtration Rate >60 (60-); Glucose, Blood 92 mg/dL (70-99); Magnesium, Blood 1.7 mg/dL (1.6-2.4); Phosphorus, Blood 4.4 mg/dL (2.5-4.9); Potassium, Blood 3.1 mmol/L (3.5-5.5); Sodium, Blood 140 mmol/L (136-145)
--- NOTE | 2020-08-18 06:38 | NUR ---
SHIFT SUMMARY PT MORBIDLY OBESE. REMAINED IN BED THROUGHOUT THE NIGHT. PT HAS VERY LITTLE MOBILITY BUT HAS BEEN BEEN IMPROVING AND IS ABLE TO LIFT BOTH HER ARMS AND LEGS NOW. PT ON AIR BED. 3 L O2 VIA NC WHICH PT REPORTS IS HER BASELINE DOSE. DRESSING TO BOTH BUTTOCKS AND BACK OF CALVES REMAINED C/D/I. ULCERS BENEATH DRESSINGS PER REPORT. SKIN ON LEGS IS DRY. BLE'S ELEVATED ON PILLOWS. PT REPORTED PAIN TO BILATERAL KNEES AND SOME GENERALIZED PAIN THROUGHOUT. MEDICATED PER EMAR. CHRONIC HYPOTENSION. SCHEDULED MIDODRINE GIVEN WITH IMPROVEMENT. VITAL SIGNS STABLE. WILL CONTINUE TO MONITOR.
--- NOTE | 2020-08-18 18:47 | NUR ---
SHIFT SUMMARY- PT IS A/O, PLESANT AND COOPERATIVE. SHE IS EAITNG AND DRINKING WELL. HER DIEGO IS PATIENT AND DRAINING. SHE HAD A BM THIS SHIFT. SHE SLEPT INTERMITENTLY THROUGHOUT THIS SHIFT. SHE WAS UP TO THE CHAIR FOR A WHILE THIS SHIFT. HER BED IS IN THE LOW POSITION AND CALL LIGHT IS WITIN REACH.
--- NOTE | 2020-08-19 05:42 | NUR ---
SHIFT SUMMARY- PT. A&O, PLEASANT AND COOPERATIVE WITH CARE. LIFT ASSIST ON BARIATRIC BED. DIURETICS HELD YESTERDAY EVENING FOR LOW BP. PT. C/O YOLANDA KNEE PAIN, MEDICATED PER EMAR WITH GOOD EFFECT. ALSO HAVING COMPLAINTS OF GENERALIZED ITCHING BUT MAINLY ON HER BACK. MEDICATED WITH ATARAX 2X THIS SHIFT, BARRIER CREAM APPLIED TO BACK AREA AND ARMS FOR ADDITIONAL RELIEF. PT. TOLERATED WELL. ON 3L NC, DIEGO CATHETER PATENT AND DRAINING. CALL LIGHT WITHIN REACH AND SIDE RAILS UPX2. WILL CONT TO MONITOR.
[2020-08-19 06:06] LABS: Albumin, Blood 2.4 g/dL (3.4-5.0); Anion Gap 5 mmol/L (6-16); Blood Urea Nitrogen 16 mg/dL (8-24); Bun/Creatinine Ratio 23.9 (12.0-20.0); CO2, Blood 38 mmol/L (21-32); Calcium, Blood 8.4 mg/dL (8.5-10.1); Chloride, Blood 96 mmol/L (98-108); Creatinine, Blood 0.67 mg/dL (0.40-1.00); Glomerular Filtration Rate >60 (60-); Glucose, Blood 91 mg/dL (70-99); Phosphorus, Blood 3.7 mg/dL (2.5-4.9); Potassium, Blood 3.3 mmol/L (3.5-5.5); Sodium, Blood 139 mmol/L (136-145)
--- NOTE | 2020-08-19 16:18 | NUR ---
Spoke with staff and discussed case. Pt's mother Verna currently in the ED with poor prognosis and is being admitted to ICU. Pt resting in bed upon arrival. Offered therapeutic listening and validated Pt's concerns regarding her mother. Pt is requesting to see her mother. Spoke with Bedside RN Breanna and discussed case. Breanna is agreeable to bring Pt to ICU if ICU staff is agreeable. Spoke with ENGRAVER [employer] [facility] who will be assuming care of Verna once she arrives. Spoke with ICU community mental health worker Stacey as well. Both are agreeable for Anais to come see Verna once staff has her settled in her room. Palliative Care will remain available.
--- NOTE | 2020-08-19 19:52 | NUR ---
PT REFUSED VITAL SIGNS, NURSE NOTIFIED
--- NOTE | 2020-08-20 04:54 | NUR ---
STAINED GLASS WINDOW DESIGNER SUMMARY A/O X4, BEDBOUND WITH USE OF LIFT FOR REPOSITIONING. C/O PAIN TO BILATERAL KNESS, MEDICATED PER EMAR. CURRENTLY ON 3L VIA NC WHICH IS BASELINE. REFUSED VITALS THIS SHIFT. WILL CONTINUE TO MONITOR AND REPORT TO ONCOMING RN.
--- NOTE | 2020-08-20 11:21 | NUR ---
Pal Care - Attempted supportive visit. Pt was sound asleep in her chair and did not wake to voice. She had been to visit her mom, on comfort care, earlier this am and I was following up with her. Will try again later if schedule allows.
--- NOTE | 2020-08-21 05:33 | NUR ---
SHIFT SUMMARY PATIENT ALERT AND ORIENTED. PATIENT MEDICATED PER EMAR NEEDED FOR PAIN AND ITCHING. NO COMPLAINTS OF CHEST PAIN OR SHORTNESS OF BREATH. NO ACUTE ISSUES NOTED OVERNIGHT. BED IN LOWEST POSITION WITH WHEELS LOCKED AND ALARM ON. CALL LIGHT WITHIN REACH. REPORT GIVEN TO ONCOMING RN.
--- NOTE | 2020-08-21 10:47 | NUR ---
pt sleeping will return when family here. Will have oscar see her on saturday.
[2020-08-22 05:17] LABS: BASOPHILS ABSOLUTE AUTO 0.08 K/mm3 (0.00-0.23); BASOPHILS PERCENT AUTO 1 % (0-2); EOSINOPHILS ABSOLUTE AUTO 1.06 K/mm3 (0.00-0.68); EOSINOPHILS PERCENT AUTO 18 % (0-6); Hematocrit 30.1 % (33.0-51.0); Hemoglobin 10.2 g/dL (11.5-16.0); IMMATURE GRAN ABSOLUTE AUTO 0.01 K/mm3 (0.00-0.10); IMMATURE GRAN PERCENT AUTO 0 % (0-1); LYMPHOCYTES ABSOLUTE AUTO 1.76 K/mm3 (0.84-5.20); LYMPHOCYTES PERCENT AUTO 30 % (21-46); MONOCYTES ABSOLUTE AUTO 0.84 K/mm3 (0.16-1.47); MONOCYTES PERCENT AUTO 14 % (4-13); Mean Corpuscular HGB 35.5 pg (26.0-34.0); Mean Corpuscular HGB Conc 33.9 g/dL (31.5-36.5); Mean Corpuscular Volume 105 fL (80-100); Mean Platelet Volume 9.8 fL (9.1-12.4); NEUTROPHILS ABSOLUTE AUTO 2.18 K/mm3 (1.96-9.15); NEUTROPHILS PERCENT AUTO 37 % (41-73); Platelet Count 244 K/mm3 (150-400); RDW Coefficient Variation 15.9 % (11.7-14.2); RDW Standard Deviation 60.4 fL (35.1-46.3); Red Blood Cell Count 2.87 M/mm3 (3.80-5.20); White Blood Cell Count 5.93 K/mm3 (4.00-11.30)
[2020-08-22 05:35] LABS: Anion Gap 4 mmol/L (6-16); Blood Urea Nitrogen 10 mg/dL (8-24); Bun/Creatinine Ratio 12.5 (12.0-20.0); CO2, Blood 41 mmol/L (21-32); Calcium, Blood 8.3 mg/dL (8.5-10.1); Chloride, Blood 94 mmol/L (98-108); Glomerular Filtration Rate >60 (60-); Glucose, Blood 104 mg/dL (70-99); Magnesium, Blood 1.2 mg/dL (1.6-2.4); Potassium, Blood 3.5 mmol/L (3.5-5.5); Sodium, Blood 139 mmol/L (136-145)
--- NOTE | 2020-08-22 05:40 | NUR ---
SHIFT SUMMARY PATIENT ALERT AND ORIENTED. MEDICATED PER EMAR NEEDED FOR PAIN AND ITCHING. PATIENT HAD NO COMPLAINTS OF SHORTNESS OF BREATH. CONTINUES TO BE ON 3 LITERS O2 VIA NASAL CANULA. BED IN LOWEST POSITION WITH WHEELS LOCKED AND ALARM ON. CALL LIGHT WITHIN REACH. REPORT GIVEN TO ONCOMING RN.
--- NOTE | 2020-08-23 05:18 | NUR ---
SUMMARY: PT A/OX4, CALLS APPROPRIATELY AND SPECIFIES NEEDS. SHE CONT'S TO REPORT PAIN TO BLE AND KNEES W/OXYCODONE RECIEVED PRN FOR TOLERABLE CONTROL. BLE LYMPHEDEMA PERISTS AND FLUID RESTRICT MAINTAINED. FULL BODY ITCHING PERSISTS W/LOTION APPLIED AND ATARAX PROVIDED FOR SOME RELIEF. SHE'S ON AN AIRBED W/REPOSITIONING ASSIST PRN. LIFT REQUIRED OOB AND BED MOBILITY ENCOURAGED. DIEGO IS PATENT/DRAINING FOR FURTHER WOUND PREVENTION. MEPILEX REMAINS C/D/I TO BUTTOCKS AND BILAT CALVES, LEGS ELEVATED ON PILLOWS AND PT'S HIPS ARE OFTEN FLOATED. SHE DENIES SOB/DYSPNEA AT REST W/SPO2 WNL ON 3L O2 VIA NC. NO ACUTE CHANGES, VSS AND AFEBRILE. SNF NEEDED UPON D/C. CHANG AND REPORT TO DAY RN.
[2020-08-23 05:49] LABS: Anion Gap 4 mmol/L (6-16); Blood Urea Nitrogen 14 mg/dL (8-24); Bun/Creatinine Ratio 15.3 (12.0-20.0); CO2, Blood 39 mmol/L (21-32); Calcium, Blood 8.3 mg/dL (8.5-10.1); Chloride, Blood 95 mmol/L (98-108); Creatinine, Blood 0.91 mg/dL (0.40-1.00); Glomerular Filtration Rate >60 (60-); Glucose, Blood 86 mg/dL (70-99); Magnesium, Blood 1.5 mg/dL (1.6-2.4); Potassium, Blood 3.8 mmol/L (3.5-5.5); Sodium, Blood 138 mmol/L (136-145)
--- NOTE | 2020-08-23 18:22 | NUR ---
SHIFT SUMMARY MEDICATED SEVERAL TIMES PER EMAR FOR ITCHING AND PAIN. PT WORKED WITH OCCUPATIONAL THERAPY AND UP IN CHAIR THIS EVENING WITH LIFT. DIEGO PATENT AND DRAINING WITHOUT DIFFICULTY. PT HAS A GOOD APPTITE AND HAS BEEN FOLLOWING THE FLUID RESTRICTION PER ORDERS. NO ACUTE CHANGES THIS SHIFT. WAITING FOR PLACEMNT. CALL LIGHT IN REACH.
--- NOTE | 2020-08-24 04:48 | NUR ---
SHIFT SUMMARY ADMITTED FOR ANASARCA. FULL CODE. SHE IS MORBIDLY OBESE. AWAITING PLACEMENT TO FACILITY WITH BARIATRIC CAPABILITY. DIEGO IS PATENT. 1500 ML FLUID RESTRICTION. SHE IS WORKING WITH PHYSICAL THERAPY/OT TO TRY TO REGAIN MOBILITY. SHE HAS BEEN ON BEDREST/LIFT PT. SACRAL ULCER ON COCCYX, MEPILEX IN PLACE. ATARAX AVAILABLE PRN FOR ITCHING. OINTMENT FOR ITCHING AVAILABLE WELL. 3 LPM O2 @ BASELINE. SHE IS A&O X4 AND COOPERATIVE WITH CARE
[2020-08-24 06:18] LABS: Bun/Creatinine Ratio 15.7 (12.0-20.0); Calcium, Blood 8.3 mg/dL (8.5-10.1); Creatinine, Blood 1.08 mg/dL (0.40-1.00); Magnesium, Blood 1.7 mg/dL (1.6-2.4); Potassium, Blood 4.2 mmol/L (3.5-5.5)
--- NOTE | 2020-08-24 18:09 | NUR ---
SHIFT SUMMARY PT AOX4; CALLS APPROPRIATELY. MEDICATED FOR PAIN- VERY PAINFUL ON HER BILAT KNEES. LIDOCAINE PATCH PLACED. PT USES LIFT. PLACED NEW MEPELEX ON BUTTOCKS AND LEGS. SEE BUSINESS MACHINES TEACHER NOTE FOR CURRENT PLAN. BED IS IN THE LOWEST POSITION AND CALL LIGHT WITHIN REACH
[2020-08-25 06:04] LABS: Bun/Creatinine Ratio 17.3 (12.0-20.0); Calcium, Blood 8.3 mg/dL (8.5-10.1); Creatinine, Blood 1.04 mg/dL (0.40-1.00); Potassium, Blood 4.3 mmol/L (3.5-5.5)
--- NOTE | 2020-08-25 06:22 | NUR ---
SHIFT SUMMARY PT IS A 55 Y/O FEMALE, ADMITTED FOR ANASARCA. SHE IS A&O X 4, BEDBOUND, LIFT PT. MORBIDLY OBESE AND DECONDITIONED. CURRENTLY AWAITING PLACEMENT. PT WAS MEDICATED FOR CHRONIC PAIN WITH OXYCODONE 2X AND ONCE WITH TRAMADOL. PT WAS ALSO MEDICATED ONCE FOR ITCHING WITH ATARAX. NO C/O ACUTE NAUSEA OR SOB. VITAL SIGNS STABLE. NO ACUTE CHANGES IN PT CONDITION NOTED. WILL CONTINUE TO MONITOR AND TREAT PER EMAR UNTIL HAND OFF TO DAY SHIFT RN.
--- NOTE | 2020-08-25 17:27 | NUR ---
SHIFT SUMMARY PATIENT IS A 55 YEAR OLD FEMALE WHO WAS ADMITTED FOR ANASARCA. PATIENT IS AWAITING PLACEMENT. PATIENT IS A&OX4. PATIENT IS BEDBOUND AND IS LIFT PATIENT. PLACED NEW MEPLEX ON BUTTOCKS AND LEGS. PHOTOS UPDATED IN CHART. PATIENT MEDICATED PER EMAR. PATIENT CALLS APPROPRIATELY. VITAL SIGNS REVIEWED. NO ACUTE CHANGES IN PATIENT CONDITION NOTED. WILL CONTINUE TO MONITOR AND TREAT UNTIL STRUCTURAL METAL FABRICATOR APPRENTICE RN SHIFT CHANGE.
--- NOTE | 2020-08-25 18:12 | NUR ---
RETAIL SALESMAN REVIEW THIS RN ASSESSED THE PT & AGREE WITH RETAIL SALESMAN DOCUMENTATION THIS SHIFT.
--- NOTE | 2020-08-26 04:56 | NUR ---
SHIFT SUMMARY: PATIENT IS ABLE TO MAKE NEEDS KNOWN. VSS, COMPLIANT WITH FLUID RESTRICTION. CONTINUES TO REPORT BLE PAIN. OXYCODONE AND TRAMADOL ARE ALTERNATED. ALONG WITH BILAT LIDOCANE PATCHES IN PLACE ON BILAT THIGHS ARE PROVIDING FAIR PAIN CONTROL. T&P Q 2 HOURS PROVIDED TO PREVENT FURTHER SKIN BREAKDOWN AND PROMOTEHEALING.
--- NOTE | 2020-08-26 19:40 | NUR ---
PT REMIANS BEDBOUND, ALERT AND ORIENTED X4, CALM AND COOPERATIVE. PT ATE ALL THREE MEELS AND WAS MEDICATION COMPLIANT. MEP ON COXYS WAS REPLACED, ALL OTHER MEPS CDI. PT HAS BEEN TREATED PER EMAR FOR PAIN THIS SHIFT. NO COMPLAINTS OF PAIN AT THIS TIME. STAFF WILL CONT TO [facility] FOR CHANGES.
[2020-08-27 05:17] LABS: Hematocrit 29.4 % (33.0-51.0); Hemoglobin 9.9 g/dL (11.5-16.0)
[2020-08-27 05:34] LABS: Anion Gap 2 mmol/L (6-16); Blood Urea Nitrogen 15 mg/dL (8-24); CO2, Blood 36 mmol/L (21-32); Calcium, Blood 8.5 mg/dL (8.5-10.1); Chloride, Blood 97 mmol/L (98-108); Creatinine, Blood 0.88 mg/dL (0.40-1.00); Glomerular Filtration Rate >60 (60-); Glucose, Blood 95 mg/dL (70-99); Potassium, Blood 4.2 mmol/L (3.5-5.5); Sodium, Blood 135 mmol/L (136-145)
--- NOTE | 2020-08-27 06:23 | NUR ---
SHIFT SUMMARY: NO ACUTE CHANGES, CHRONIC PAIN IS MEDICATED WITH PRN TYLENOL, TRAMADOL AND OXYCODONE WITH FAIR EFFECT. HAD A LARGE BM ON BED VELASQUEZ. COMPLIANT WITH FLUID RESTRICTION.
--- NOTE | 2020-08-27 16:15 | NUR ---
SHIFT SUMMARY MEDICATED PATIENT FREQUENTLY FOR PAIN, ALTERNATED OXYCODONE AND TRAMADOL. PATIENT DENIES NAUSEA AND SHORTNESS OF BREATH. PATIENT DID NOT GET OUT OF BED TODAY. PT WORKED WITH PATIENT IN BED. PATIENT COMPLIANT WITH FLUID RESTRICTION. PLEASANT AND COOPERATIVE WITH CARE.
--- NOTE | 2020-08-27 19:33 | NUR ---
PT GAVE THIS STUDENT NURSE PERMISSION TO PROVIDE CARE ON 08/27/20
--- NOTE | 2020-08-28 06:33 | NUR ---
SHIFT SUMMARY PT IS PLEASANT & COOPERATIVE TO CARE. NO ACUTE CHANGES THIS SHIFT. DRESSINGS CHANGED X 5;C/D/I. CHRONIC PAIN MANAGED PER MAR. BED IN LOWEST POSTION & CALL LIGHT WITHN REACH. WILL CONTINUE TO MONITOR UNTIL DAY SHIFT ARRIVES.
[2020-08-28 12:41] LABS: Albumin, Blood 2.6 g/dL (3.4-5.0); Anion Gap 2 mmol/L (6-16); Blood Urea Nitrogen 13 mg/dL (8-24); Bun/Creatinine Ratio 15.5 (12.0-20.0); CO2, Blood 36 mmol/L (21-32); Calcium, Blood 8.6 mg/dL (8.5-10.1); Chloride, Blood 97 mmol/L (98-108); Creatinine, Blood 0.84 mg/dL (0.40-1.00); Glomerular Filtration Rate >60 (60-); Glucose, Blood 114 mg/dL (70-99); Magnesium, Blood 1.7 mg/dL (1.6-2.4); Phosphorus, Blood 3.6 mg/dL (2.5-4.9); Potassium, Blood 4.3 mmol/L (3.5-5.5); Sodium, Blood 135 mmol/L (136-145)
--- NOTE | 2020-08-28 16:30 | NUR ---
SHIFT SUMMARY PATIENT MEDICATED FREQUENTLY FOR PAIN THIS SHIFT. PATIENT DENIES NAUSEA AND SHORTNESS OF BREATH. 3L/NC TO MAINTAIN OXYGEN SATURATION ABOVE 92%. TWO PERSON ASSIST FOR BED MOBILITY AND REPOSITION. FLUID RESTRICTION. DIEGO PATENT AND DRAINING. DRESSINGS C/D/I. ALERT AND ORIENTED. COOPERATIVE WITH CARE.
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
--- NOTE | 2020-08-29 18:39 | NUR ---
A+O AWAITING PLACEMENT, MEDICATED PRESCRIBED, CALL LIGHT IN REACH, DRESSINGS CDI, ICE ON KNEES PER DR AND KNEES BENT REQUESTED FOR PT, RM AIR, NO IV, WILL CONTINUE TO MONITOR AND TREAT UNTIL SHARE BSR WITH NOC NURSE
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
--- NOTE | 2020-08-30 02:34 | NUR ---
Morbidly obese PT oxygen dependant continues on bedrest on specility air bed to decrease risk of skin breakdown. Multiple small areas of skin breakdown with foam dressings in place. Moreno cath for strict I & O. Lift PT. DC planning continues
--- NOTE | 2020-08-30 04:09 | NUR ---
SHIFT SUMMARY REMAINS ON BEDREST. ALERT AND ORIENTED X 4. AWAKE AT ROUNDINGS. WT OBTAINED - SEE DOC FLOW SHEETS FOR DETAILS, (180 KG). vOICED THAT WT HAS DECREASED FROM "FIVE HUNDRED (POUNDS)" UPON ADMISSION. DIEGO DRAINING. ANASARCA OF BLE CONTINUES. NOTE DRY, SCALY PATCHES MIXED WITH SOME WEEPING. CALL LIGHT IN REACH. REST ENCOURAGED.
--- NOTE | 2020-08-30 18:00 | NUR ---
Spirirtual care note: Anais confided more of her story to me today. She has endured a great deal. She appeared to benefit from being heard and affirmed. She allowed me to pray today. I will remain available.
--- NOTE | 2020-08-30 18:11 | NUR ---
SHIFT SUMMARY: NO ACUTE EVENTS. C/O 7-02/12 PAIN IN BLE; MEDICATED PER EMAR, NEVER REACHES HER GOAL OF 4/10. USING O2 @ 3 L/MIN NC, WHICH IS HER BASELINE. DIEGO DRAINING SMALL AMT URINE, FAROOQ. COMPLIANT WITH FLUID RESTRICTION. TAKING PILLS IN APPLESAUCE. [facility], ST[facility]ED ~ 1 HOUR. AWAITING PLACEMENT.
--- NOTE | 2020-08-31 06:47 | NUR ---
PT PCU transfer on day shift & she has calm affect & is able to communicate. She is up to BSC several times with assist & wears pullup. Some fecal incontinence. Medicated for mild abd pain with tylenol 650 mg x 1 . PT has baseline UE tremors. Cooperative with meds & activity. Tolerated full liquid diet.
[2020-08-31 12:24] LABS: Magnesium, Blood 1.5 mg/dL (1.6-2.4); Potassium, Blood 4.1 mmol/L (3.5-5.5)
--- NOTE | 2020-08-31 19:01 | NUR ---
SHIFT SUMMARY NO ACUTE CHANGES T/O SHIFT, A&Ox4, CALM AND COOPERATIVE c CARE. PT C/O CHRONIC PAIN T/O SHIFT, TREATED x2 FOR PAIN. UP IN CHAIR X2 TODAY FOR A TOTAL OF APPROX 5 HOURS. CPAP ORDERED PER PROVIDER AND ENCOURAGED TO BE USED HS. PT CONTINUES TO BE ON 3 L/MIN NC CONTINUOUS @ BASELINE. DIEGO PATENT AND DRAINING. VENOUS US COMPLETED TODAY, NO DVT NOTED. AWAITING PLACEMENT. PT IS CURRENTLY SITTING IN CHAIR WITH CALL LIGHT WITHIN REACH, CALLS APPROPRIATELY.
--- NOTE | 2020-09-01 04:30 | NUR ---
SHIFT SUMMARY: VSS. AFEB. AAOX4. COMMUNICATES NEEDS. ONGOING KNEE PAIN. MEDICATED W/ OXYCODONE, ULTRAM, AND TYLENOL W/ SOME RELIEF. PT SLEPT MINIMALLY. REFUSED CPAP FROM RT TONIGHT. STATING DUE TO A "ROUGH DAY" YESTERDAY. AGREES TO TRIAL WEARING THE CPAP TONIGHT. 02 WNL ON 3L VIA NC. DENIES SOB. NO COUGHING HEARD TONIGHT. CONT W/ ANASARCA. F/C DRAINING TO GRAVITY. URINE CLEAR YELLOW. PT COMPLIANT W/ FLUID RESTRICTION. NO ACUTE OVERNIGHT CHANGES. WCTM.
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
--- NOTE | 2020-09-01 17:55 | NUR ---
Shift Summary A/Ox4, pleasant/cooperative. Calls appropriately. Up to recliner x 2 hours. Worked with PT, tolerated well. Medicated multiple times for pain with some relief. Appetite is good, compliant with fluid restrictions. Dressings changed x 4 to back thighs and buttocks, both buttocks are for preventative measures only. Weight obtained after lifted back into bed. Medicated for itching x 1. Daughter in to visit briefly today. Moreno intact and draining alessio yellow urine to gravity. Able to assist with repositioning and boosting up in bed. Awaiting placement, WCTM.
[2020-09-02 05:32] LABS: Hemoglobin 9.8 g/dL (11.5-16.0); Mean Corpuscular HGB 34.5 pg (26.0-34.0); Mean Corpuscular HGB Conc 33.8 g/dL (31.5-36.5); Mean Corpuscular Volume 102 fL (80-100); Mean Platelet Volume 10.4 fL (9.1-12.4); Platelet Count 165 K/mm3 (150-400); RDW Coefficient Variation 15.4 % (11.7-14.2); RDW Standard Deviation 57.4 fL (35.1-46.3); Red Blood Cell Count 2.84 M/mm3 (3.80-5.20); White Blood Cell Count 6.71 K/mm3 (4.00-11.30)
--- NOTE | 2020-09-02 05:45 | NUR ---
SHIFT SUMMARY: VSS. AFEB. AAOX4. MED FOR B KNEE PAIN Q4HRS TONIGHT. PT SLEPT INTERMITTENTLY. CONT W/ ANASARCA. LSCTA W/ DIM BASES. RESPS SHALLOW, NON-LABORED, DENIES SOB. F/C PATENT. PT COMPLIANT W/ FLUID RESTRICTION. WCTM.
[2020-09-02 06:22] LABS: Alanine Aminotransfer (ALT/SGP 28 U/L (12-78); Albumin, Blood 2.7 g/dL (3.4-5.0); Albumin/Globulin Ratio 0.8 (0.8-1.8); Alk Phos 95 U/L (50-136); Anion Gap 4 mmol/L (6-16); Aspartate Aminotrans (AST/SGOT 59 U/L (12-37); Bilirubin, Total 1.5 mg/dL (0.1-1.0); Blood Urea Nitrogen 10 mg/dL (8-24); Bun/Creatinine Ratio 12.4 (12.0-20.0); CO2, Blood 32 mmol/L (21-32); Calcium, Blood 8.6 mg/dL (8.5-10.1); Chloride, Blood 101 mmol/L (98-108); Creatinine, Blood 0.81 mg/dL (0.40-1.00); Globulin, Blood 3.2 g/dL (2.2-4.0); Glomerular Filtration Rate >60 (60-); Glucose, Blood 85 mg/dL (70-99); Potassium, Blood 4.2 mmol/L (3.5-5.5); Sodium, Blood 137 mmol/L (136-145); Total Protein, Blood 5.9 g/dL (6.4-8.2); Triiodothyronine, Free 1.87 pg/mL (2.18-3.98)
--- NOTE | 2020-09-02 10:41 | NUR ---
I/O PATIENT HAVING POOR URINE OUTPUT AND GAINING WEIGHT. DURING THE COURSE OF 12 HOURS 09/01, ONLY 400 OUT. PATIENT HAD VERY MINIMAL FOR SENIOR HRIS ANALYST, NOT ENOUGH TO CHART. DISCUSSED WITH Catalino LAWRENCE FOR IV LASIX 40 MG DAILY, FIRST DOSE NOW. EMAR UPDATED.
--- NOTE | 2020-09-02 19:05 | NUR ---
ASSUMED CARE RECEIVED REPORT FROM CLAUDIA AYERS. PT RESTING QUIETLY, IN NO ACUTE DISTRESS. NO ACUTE NEEDS ASSESSED AT THIS TIME. CALL LIGHT, POSSESSIONS IN REACH.
--- NOTE | 2020-09-02 19:31 | NUR ---
Shift Summary Despite medicating round the clock for bilat knee pain, pain not adequately controlled per patient state. Patient appears to be sleepy, comfortable, and conversive when awaken. No grimacing even with leg movement. Tolerated up in chair for almost 4 hours. Moreno removed and replaced with attends. Nystatin to pannus and breast folds. Patient has been quite thirsty and has been asking for more fluids to drink, however, patient has been educated on the need for continued fluid restriction. Tearful, but agreeable. Received V.O. from Dr. Beltran to d/c sulaiman. VSS, afebrile.
--- NOTE | 2020-09-03 04:14 | NUR ---
LICENSING COORDINATOR SUMMARY PT LYING IN BED WATCHING TV, IN NO ACUTE DISTRESS. HAS SLEPT OFF AND ON THROUGH THE NIGHT. VS REVIEWED,WNL. PAIN CONTROLLED WITH MEDS PER EMAR, WITH SOME RELIEF, PAIN AVERAGING 8/10 POST MEDICATION ADMINISTRATION. PARTICIPATED WELL WITH CARES. TOLERATED 1500ML FLUID RESTRICTION WELL, DEMONSTRATED UNDERSTANDING. HAS BEEN INCONTINENT OF URINE, ATTEMPTED BEDPAN, WITH NO SUCCESS. NO C/O DYSURIA. NO OTHER ACUTE CHANGES IN CONDITION TO REPORT OVERNIGHT. PT DENIES FURTHER NEEDS AT THIS TIME. CALL LIGHT, POSSESSIONS IN REACH, WILL CONTINUE TO PROVIDE CARE UNTIL REPORT GIVEN TO ONCOMING RN.
[2020-09-03 05:51] LABS: Anion Gap 3 mmol/L (6-16); Blood Urea Nitrogen 9 mg/dL (8-24); Bun/Creatinine Ratio 10.6 (12.0-20.0); CO2, Blood 32 mmol/L (21-32); Calcium, Blood 8.6 mg/dL (8.5-10.1); Chloride, Blood 102 mmol/L (98-108); Creatinine, Blood 0.85 mg/dL (0.40-1.00); Glomerular Filtration Rate >60 (60-); Glucose, Blood 98 mg/dL (70-99); Potassium, Blood 4.1 mmol/L (3.5-5.5); Sodium, Blood 137 mmol/L (136-145)
--- NOTE | 2020-09-03 18:34 | NUR ---
SHIFT SUMMARY PT A&OX4, ABLE TO MAKE NEEDS KNOWN PLEASANT AND COOPERATIVE WITH CARE. NO ACUTE CHANGES NOTED TO PT THIS SHIFT. MEDICATED FOR PAIN PER EMAR. NO C/O CP, SOB, OR N&V. PT CONT ON 3LPM O2 VIA NC, SATS >92% PT REQUIRES MAX ASSIST WITH BED MOBILITY, LIFT WITH TRANSFERS TO RECLINER. BED AT LOWEST POSITION. CALL LIGHT WITHIN REACH.
--- NOTE | 2020-09-03 19:05 | NUR ---
ASSUMED CARE RECEIVED REPORT FROM CLAUDIA MOON. PT RESTING, IN NO ACUTE DISTRESS. DENIES NEEDS AT THIS TIME. CALL LIGHT, POSSESSIONS IN REACH.
[2020-09-04 06:48] LABS: Anion Gap 2 mmol/L (6-16); Blood Urea Nitrogen 11 mg/dL (8-24); Bun/Creatinine Ratio 12.7 (12.0-20.0); CO2, Blood 32 mmol/L (21-32); Calcium, Blood 8.4 mg/dL (8.5-10.1); Chloride, Blood 103 mmol/L (98-108); Creatinine, Blood 0.86 mg/dL (0.40-1.00); Glomerular Filtration Rate >60 (60-); Glucose, Blood 89 mg/dL (70-99); Magnesium, Blood 1.9 mg/dL (1.6-2.4); Potassium, Blood 4.3 mmol/L (3.5-5.5); Sodium, Blood 137 mmol/L (136-145)
--- NOTE | 2020-09-04 07:01 | NUR ---
NEWSPAPER ILLUSTRATOR SUMMARY PT RESTING, IN NO ACUTE DISTRESS. VS REVIEWED,WNL. NO ACUTE CHANGES IN CONDITION NOTED T/O NIGHT, PAIN MANAGED WITH MEDS PER EMAR, WITH SOME RELIEF. PT SLEPT ON AND OFF. COMPLIANT WITH FLUID RESTRICTION. NO ACUTE NEEDS ASSESSED AT THIS TIME. CALL LIGHT, POSSESSIONS IN REACH. REPORT GIVEN TO SARAI Jurado RN.
--- NOTE | 2020-09-04 16:36 | NUR ---
SHIFT SUMMARY PT A&OX4, ABLE TO MAKE NEEDS KNOWN. PLEASANT AND COOPERATIVE WITH CARE. PT MEDICATED FOR GENERALIZED BODY PAIN PER EMAR. NO C/O CP / SOB / OR N&V. PT ON 3LPM O2 VIA NC. PT REQUIRES 2P MAX ASSIST WITH BED MOBILITY, REQUIRES LIFT FOR TRANFERS. NO ACUTE CHANGES NOTED TO PT THIS SHIFT. BED AT LOWEST POSITION. CALL LIGHT WITHIN REACH.
--- NOTE | 2020-09-04 19:05 | NUR ---
ASSUMED CARE RECEIVED REPORT FROM SARAI Jurado RN. PT RESTING IN NO ACUTE DISTRESS. REQUESTING PAIN MEDICATION, WILL MEDICATE ORDERED. PT DENIES OTHER NEEDS AT THIS TIME. CALL LIGHT IN REACH.
--- NOTE | 2020-09-05 06:50 | NUR ---
YARDER BOSS SUMMARY PT RESTING, IN NO ACUTE DISTRESS. VS REVIEWED,WNL. SLEPT ON AND OFF THROUGH THE NIGHT. PAIN MANAGED WITH MEDS PER EMAR, WITH A FAIR AMOUNT OF RELIEF. NO OTHER ACUTE CHANGES IN CONDITION TO REPORT OVERNIGHT. COMPLIANT WITH FLUID RESTRICTION. DENIES NEEDS. CALL LIGHT, POSSESSIONS IN REACH. REPORT GIVEN TO CLAUDIA HEARD.
--- NOTE | 2020-09-05 17:15 | NUR ---
PATIENT A/OX4, ABLE TO MAKE NEEDS KNOWN. WORKED WITH PT TODAY IN BED. VERY PAINFUL WITH MOVEMENT AND REPOSITIONING. OXYCODONE AND TRAMADOL USED TO TREAT WITH SOME RELIEF. VSS, ON 3LO2 VIA NC TO MAINTAIN SATS. MIDODRINE SCHEDULED TO MAINTAIN B/P. FUNGAL POWDER TO FOLDS, MEPILEX TO ABRASION ON R BUTTOCKS REMAINS C/D/I. 3+ EDEMA FROM WAIST DOWN, LEGS NO LONGER WEEPING. TAKES PILLS WHOLE WITH PUDDING. TOLERATING LOW NA+ DIET AND COMPLIANT WITH 1.5L FLUID RESTRICTION. CALM AND COOPERATIVE WITH CARE. AWAITING SNF PLACEMENT.
--- NOTE | 2020-09-05 18:40 | NUR ---
Spiritual care note: Provided theraputic listening and correctional substance abuse counselor to Anais. She states she is very grateful to be heard and affirmed without judgement. I will continue to follow as schedule permits.
--- NOTE | 2020-09-06 04:44 | NUR ---
SHIFT SUMMARY: VSS. AFEB. AAOX4. ONGOING BILATERAL KNEE PAIN. PT REQUESTING PAIN MEDS FREQUENTLY FOR KNEES. SLEEPS MINIMALLY. CONTINENT OF STOOL. INCONT OF URINE. ASSISTS W/ TURNS IN BED. COMPLIANT W/ FLUID RESTRICTION. CONT W/ ANASARCA. LSCTA W/DIM BASES. NO COUGHING. 02 93% ON 3L VIA NC. SOB W/EXERTION. NO ACUTE CHANGES OVERNIGHT. WCTM.
--- NOTE | 2020-09-06 17:53 | NUR ---
NO ACUTE CHANGES THIS SHIFT. CARE MANGER REACHING OUT TO PATEROS AGAIN TO REEVALUATE PATIENT FOR LOCAL PLACEMENT. PATIENT CONTINUES TO WORK WITH PT. TOLERATING 2G NA+ DIET AND IS COMPLIANT WITH 1.5L FLUID RESTRICTION. CONTINUES TO BE VERY PAINFUL WITH REPOSITIONING, OXYCODONE, TRAMADOL AND TYLENOL GIVEN TO TREAT. FUNGAL POWDER TO FOLDS, MEPILEX CHANGED TO ABRASION ON R BUTTOCKS. VERY COOPERAIVE AND PLEASANT WITH CARE. INCONTINENT OF URINE WITH GOOD OUTPUT THIS SHIFT. CALLS APPROPRIATELY FOR ASSISTANCE.
--- NOTE | 2020-09-07 06:40 | NUR ---
SHIFT SUMMARY PT IS A 55 Y/O FEMALE, ADMITTED FOR ANASARCA AND CURRENTLY AWAITING PLACEMENT. SHE IS A LIFT PT, 2P TURN AND CHANGE, BEDPAN. SHE WAS MEDICATED FREQUENTLY FOR CHRONIC BLE PAIN. NO C/O NAUSEA OR SOB. VITAL SIGNS STABLE. NO ACUTE CHANGES IN PT CONDITION NOTED. WILL CONTINUE TO MONITOR AND TREAT PER EMAR UNTIL HAND OFF TO DAY SHIFT RN.
[2020-09-07 07:02] LABS: BASOPHILS ABSOLUTE AUTO 0.12 K/mm3 (0.00-0.23); BASOPHILS PERCENT AUTO 2 % (0-2); EOSINOPHILS ABSOLUTE AUTO 1.49 K/mm3 (0.00-0.68); EOSINOPHILS PERCENT AUTO 19 % (0-6); Hematocrit 29.1 % (33.0-51.0); Hemoglobin 9.8 g/dL (11.5-16.0); IMMATURE GRAN ABSOLUTE AUTO 0.02 K/mm3 (0.00-0.10); IMMATURE GRAN PERCENT AUTO 0 % (0-1); LYMPHOCYTES ABSOLUTE AUTO 2.27 K/mm3 (0.84-5.20); LYMPHOCYTES PERCENT AUTO 29 % (21-46); MONOCYTES PERCENT AUTO 10 % (4-13); Mean Corpuscular HGB 34.1 pg (26.0-34.0); Mean Corpuscular HGB Conc 33.7 g/dL (31.5-36.5); Mean Corpuscular Volume 101 fL (80-100); Mean Platelet Volume 10.6 fL (9.1-12.4); NEUTROPHILS ABSOLUTE AUTO 3.06 K/mm3 (1.96-9.15); NEUTROPHILS PERCENT AUTO 39 % (41-73); Platelet Count 153 K/mm3 (150-400); RDW Coefficient Variation 15.4 % (11.7-14.2); RDW Standard Deviation 57.7 fL (35.1-46.3); Red Blood Cell Count 2.87 M/mm3 (3.80-5.20); White Blood Cell Count 7.76 K/mm3 (4.00-11.30)
[2020-09-07 07:19] LABS: Albumin, Blood 2.5 g/dL (3.4-5.0); Anion Gap 2 mmol/L (6-16); Blood Urea Nitrogen 10 mg/dL (8-24); Bun/Creatinine Ratio 12.3 (12.0-20.0); CO2, Blood 32 mmol/L (21-32); Calcium, Blood 8.4 mg/dL (8.5-10.1); Chloride, Blood 102 mmol/L (98-108); Creatinine, Blood 0.82 mg/dL (0.40-1.00); Glomerular Filtration Rate >60 (60-); Glucose, Blood 86 mg/dL (70-99); Magnesium, Blood 1.8 mg/dL (1.6-2.4); Phosphorus, Blood 4.2 mg/dL (2.5-4.9); Potassium, Blood 4.3 mmol/L (3.5-5.5); Sodium, Blood 136 mmol/L (136-145)
--- NOTE | 2020-09-07 14:59 | NUR ---
Patient is plaeasant and cooperative with staff. has chronic pain to bilat knees in which she has lidocaine patches; she also requests pain medcation reqularly ATC. Vitals have been stable, patient has been recieving her scheduled Midodrine as she falls within clinical guidelines. Tresa-area pink but looking pretty good considering. Nystatin powder applied per emar. Some excoritation to her buttock, barrier cream applied. Patient is medically stable and is just awaiting placement at this time. Call light within reach.
--- NOTE | 2020-09-08 06:04 | NUR ---
PT continues immobile with chronic bilat knee pain 10/10 per PT bone on bone per PT report. She has multiple skin issues related to morbid obesity & CHF immobility & incontinence. Uses bedpan for BM incont of urine after hilario cath dc. compliant with 1500 ml fluid restriction. PT says she has lost 100 lbs since admission. Medicated multiple times with prns for chronic knee pain with fair relief. DC planning continues to bariatric facility.
--- NOTE | 2020-09-08 19:21 | NUR ---
bedrest, repositoned r/skin breakdown, medicated as prescibed, pt refused to get up in a chair today r/knee pain, call light in reach, 2L via nc, saline locked powerglide
--- NOTE | 2020-09-09 04:22 | NUR ---
SUMMARY PT HAD NO NEW ISSUES NOTE. PT DISCOMFORT TX PER EMAR W/ RELIEF. PT RESTED WELL T/O SHIFT. PT CURRENTLY SLEEPING AND IN NO DISTRESS. CALL LIGHT IN REACH.
--- NOTE | 2020-09-09 20:00 | NUR ---
a+o but refused to get up from bed, repositioned and discused skin care, pt acknowleged need to repostion but expressed fear of pain related to trying to stand, call light in reach, medicated as prescribed, frequent request for pain medication, josefina pham shared with noc nurse and pt
--- NOTE | 2020-09-10 05:07 | NUR ---
summary NO NEW CHANGES. PT RESTED WELL. PT CURRENTLY SLEEPING IN NO DISTRESS. CALL LIGHT IN REACH.
--- NOTE | 2020-09-10 19:04 | NUR ---
SHIFT SUMMARY- PT IS A/O, PLESANT AND COOPERATIVE. SHE IS EATING AND DRINKING WELL. SHE RECIEVED A BED BATH THIS SHIFT. SHE IS AWAITING PLACMENT. SHE IS RECIEVING PAIN MEDICATION NEEDED. HER BED IS IN THE LOW POSITION AND CALL LIGHT IS WITIN CALVIN.
--- NOTE | 2020-09-11 03:47 | NUR ---
SHIFT SUMMARY NO ACUTE CHANGES TO REPORT THIS SHIFT. MEDICATED FOR CHRONIC KNEE PAIN ORDERED. PT HAS RESTED OFF AND ON T/O THE SHIFT. SHE HAS MAXED OUT HER FLUID RESTRICTION THIS SHIFT. ASSESSMENT REMAINS UNCHANGED. SHE IS STILL AWAITING PLACEMENT AT THIS TIME. BED IN LOWEST POSITION, CALL LIGHT WITHIN REACH.
--- NOTE | 2020-09-11 18:32 | NUR ---
SHIFT SUMMARY- PT IS A/O, PLESANT AND COOPERATIVE. SHE IS EATING AND DRINKING WELL. SHE IS RECIEVING PAIN MED NEEDED. HER SON VISITED THIS AFTERNOON. HER BED IS IN THE LOW POSTION AND CALL LIGHT IS WITHIN REACH.
--- NOTE | 2020-09-12 04:33 | NUR ---
SHIFT SUMMARY NO ACUTE CHANGES TO REPORT THIS SHIFT. PT REQUESTS PAIN MEDICATIONS FREQUENTLY FOR CHRONIC KNEE PAIN. MEDICATED PER EMAR ORDERS. PT HAS RESTED MOST OF THE NIGHT. ASSESSMENT UNCHANGED, PT IS STILL AWAITING PLACEMENT AT THIS TIME. BED IN LOWEST POSITION, CALL LIGHT WITHIN REACH.
--- NOTE | 2020-09-13 05:57 | NUR ---
SHIFT SUMMARY A/O, ABLE TO MAKE NEEDS KNOWN. COOPERATIVE WITH CARE. CALLS AND ANSWERS QUESTIONS APPROPRIATELY. C/O 10/10 PAIN/DISCOMFORT TO BILATERAL KNEES; MEDICATED MULTIPLE TIMES T/O SHIFT WITH MINIMAL RELIEF. ASKED IF PATIENT HAD BEEN PARTICIPATING IN THERAPY; STATES HAS NOT SEEN THERAPY IN LAST COUPLE OF DAYS, STATES THERAPY HASN'T BEEN ABLE TO MAKE IT INTO HER ROOM. [facility] WANTS TO BE ABLE TO WALK SOMEDAY SOON. DID NOT REST AT ALL T/O NIGHT; [facility] DAYS AND NIGHTS ARE MIXED UP. HELPS WITH TURNS/TRANSFERS FOR ATTENDS CHANGES. BARRIER CREAM APPLIED TO BUTTOCKS. DRSG REPLACED TO LLE POSTERIOR POST. NO ACUTE CHANGES NOTED OVERNIGHT. VSS/AFEBRILE. BED WEIGHT TAKEN. BED IN LOWEST POSITION. CALL LIGHT AND BELONGINGS WITHIN REACH. CONTINUE WITH CURRENT PLAN OF CARE. REPORT TO ONCOMING RN.
--- NOTE | 2020-09-13 18:10 | NUR ---
Spiritual care note: Provided supportive visit to
--- NOTE | 2020-09-13 19:30 | NUR ---
PAIN MANAGEMENT. PATIENT COMPLAINS OF 8-10/10 PAIN ON A CONSISTENT BASIS. ENCOURAGED TO ADDRESS PAIN CONCERNS WITH MD DURING ROUNDS. MD/RN/PT/CM ROUNDS THIS MORNING, PATIENT STATES THAT SHE HAS "A LOT OF DISCOMFORT" IN BETWEEN DOSES, BUT THAT "ITS NOT TOO BAD". PATIENT DECLINED NEEDING INCREASED PAIN MANAGEMENT AT THAT TIME AND STATED "NO" WHEN ASKED IF ANY CHANGES NEEDED TO BE MADE.
--- NOTE | 2020-09-14 06:19 | NUR ---
SHIFT SUMMARY PATIENT ALERT AND ORIENTED. MEDICATED PER EMAR FOR PAIN AND ITCHING. NO COMPLAINTS OF SHORTNESS OF BREATH. NO ACUTE ISSUES NOTED OVERNIGHT. IV PATENT AND FLUSHED. BED IN LOWEST POSITION WITH WHEELS LOCKED AND ALARM ON. CALL LIGHT WITHIN REACH. REPORT GIVEN TO ONCOMING RN.
--- NOTE | 2020-09-14 17:53 | NUR ---
Spiritual care note: Further life review with Anais this afternoon. Gentle bereavement certified credit counselor well-recieved. She is determined to turn her life around and I complimented her strength. She does see a counselor on a fairly regular basis, and appears to have built a good rapport with this person. I will continue to certified credit counselor/comfort Anais as schedule permits.
--- NOTE | 2020-09-14 18:28 | NUR ---
SHIFT SUMMARY PT ALERT, AND LIFT PATIENT. PT VERY PAINFUL ON HER BILAT KNEES. SOB ON EXERTION ON O2. DISCUSSED WITH THE DR ABOUT THE PAIN OF THE PT. INCREASED PAIN MEDICATION PER DR THIS AM; OFFERED COLD THERAPY- PT REFUSED. MEDICATER PER EMAR. PT C/O NOT ENOUGH PAIN MEDICATION AND STILL IN PAIN. PT EDUCATED THE FREQUENCY AND SIDE EFFECTS OF THE SEVERAL MEDICATIONS. BED IS IN THE LOWEST POSITION AND CALL LIGHT WITHIN REACH
--- NOTE | 2020-09-15 06:45 | NUR ---
SUMMARY NO NEW ISSUES NOTED. PT RESTED WELL T/O SHIFT. PAIN MANAGED WELL.
--- NOTE | 2020-09-15 17:15 | NUR ---
PT AAOX3. FORGETFUL. COOPERATIVE WITH CARE. RR EVEN AND UNLABORED 3L NC. PAINFUL THROUGHOUT SHIFT. PT REPORTS PAIN OF 10/10 BL KNEE, 8/10 AFTER PAIN MEDICATION. PT DOES NOT PRESENT WITH ANY FACIAL GRIMACING OR MOANING. APPEARS CALM WHEN REPORTING 10/10 PAIN. POWER GLIDE R ARM, BOTH LUMENS FLUSHED AND PATENT. APPETITE GOOD. SCATTERED SMALL SKIN TEARS TO PANUS. BARRIER CREAM AND POWDER APPLIED. PT WAITING PLACEMENT. SHE HAS NO QUESTIONS OR CONCERNS AT THIS TIME. WILL CONTINUE TO MONITOR UNTIL REPORT TO NOC RN
--- NOTE | 2020-09-16 05:27 | NUR ---
SHIFT SUMMARY OVERALL NO ACUTE CHANGES TO REPORT THIS SHIFT. PT IS A LOT MORE WITHDRAWN THIS SHIFT, AND IS LESS TALKATIVE WITH STAFF, AND IS IRRITABLE. PT HAS SPENT MOST OF THE SHIFT SLEEPING, WATCHING TV OFF AND ON. PT HAS MAXED OUT ON HER FLUID RESTRICTION THIS SHIFT, SHE HAS BEEN COMPLIANT WITH RESTRICTION. VITALS ARE STABLE. NO ACUTE CHANGES IN ASSESSMENT. BED IN LOWEST POSITION, CALL LIGHT WITHIN REACH.
[2020-09-16 08:27] LABS: Hematocrit 31.7 % (33.0-51.0); Hemoglobin 10.4 g/dL (11.5-16.0)
[2020-09-16 08:53] LABS: Anion Gap 4 mmol/L (6-16); Blood Urea Nitrogen 7 mg/dL (8-24); Bun/Creatinine Ratio 8.8 (12.0-20.0); CO2, Blood 31 mmol/L (21-32); Calcium, Blood 8.5 mg/dL (8.5-10.1); Chloride, Blood 102 mmol/L (98-108); Creatinine, Blood 0.79 mg/dL (0.40-1.00); Glomerular Filtration Rate >60 (60-); Glucose, Blood 87 mg/dL (70-99); Sodium, Blood 137 mmol/L (136-145)
--- NOTE | 2020-09-16 17:35 | NUR ---
PT AAOX4. COOPERATIVE WITH CARE. FLUID RESTICTION INCREASED TO 1999 PER . PT WITH BL KNEE PAIN 8-02/12. MEDICATED PER JUL. UP TO CHAIR PER PT RECOMMENDATION. RR EVEN AND UNLABORED 3L NC. APPETITE GOOD. NO BM. PT HAS QUESTIONS OR CONCERNS AT THIS TIME. WILL CONTINUE TO MONITOR UNTIL REPORT TO NOC RN
--- NOTE | 2020-09-17 05:42 | NUR ---
SHIFT SUMMARY A/O, ABLE TO MAKE NEEDS KNOWN. COOPERATIVE WITH CARE. CALLS AND ANSWERS QUESTIONS APPROPRIATELY. C/O PAIN/DISCOMFORT 01/13 TO BILATERAL KNEES; MEDICATED PER EMAR. PAIN APPEARS TO BE MUCH BETTER MANAGED THIS NIGHT. APPEARED TO REST OFF AND ON. INCONT OF URINE; ATTENDS CHECKED ROUTINELY. DRSG TO POSTERIOR L CALF REPLACED. NO ACUTE CHANGES NOTED OVERNIGHT. BED REMAINS IN LOWEST POSITION. CONTINUE WITH CURRENT PLAN OF CARE. REPORT TO ONCOMING RN.
--- NOTE | 2020-09-17 18:16 | NUR ---
SHIFT SUMMARY PT IS A&O AND ABLE TO MAKE NEEDS KNOWN. PT HAS BEEN PLESANT AND ACCEPTING OF CARE. PT HAD EXPIRATORY WHEEZE THROUGHOUT. PT EXPERIENCED CHRONIC PAIN IN BOTH KNEES DURING SHIFT. LIDOCAIN PATCH APPLIED AND PRN PAIN MEDICATIONS GIVEN WHEN AVAILABLE, PILLOWS PLACED UNDER LEGS/KNEES TO HELP SUPPORT AND ELEVATE THEM. PT WAS COMPLIANT WITH 2L FLUID RESTRICTION. PT ACTIVELY HELPED WHEN TURNING OR BOOSTING IN BED. PT CURETNLY WATCHING TV, CALL LIGHT W/IN REACH. WILL CONTINUE TO MONITOR UNTIL SHIFT CHANGE
--- NOTE | 2020-09-18 05:35 | NUR ---
SHIFT SUMMARY A/O, ABLE TO MAKE NEEDS KNOWN. COOPERATIVE WITH CARE. CALLS AND ANSWERS QUESTIONS APPROPRIATELY. C/O PAIN/DISCOMFORT TO BILAT KNEES; MEDICATED PER EMAR. NO ACUTE CHANGES NOTED OVERNIGHT. FOLLOWING CURRENT FLUID RESTRICTION GUIDELINES. BED REMAINS IN LOWEST POSITION. CALL LIGHT AND BELONGINGS WITHIN REACH. CONTINUE WITH CURRENT PLAN OF CARE. REPORT TO ONCOMING RN.
--- NOTE | 2020-09-18 17:10 | NUR ---
SHIFT SUMMARY PT WOKE FOR CARE THIS AM. PLEASANT AND CO-OP. MORBIDLY OBESE, LIFT TX REQUIRED. PT CONTINUES TO WAIT PLACEMENT. PT ADMITTED FOR ANASARCA, SKIN TIGHT AND THICK WITH BLISTERS ON BLE'S. SKIN SPLIT OPEN IN SM SPOTS IN PANUS FOLDS. CALAZIME LOTION APPLIED. PT MEDICATED PER EMAR FOR C/O PAIN TO KNEES. PT CALLS WHEN OXYCODONE IS DUE. PT HAS DIFFICULTY MAINTAINING F/R. INCONTINENT OF URINE. LE'S ELEVATED ON PILLOWS. BED BATH AND LINEN CHANGE DONE THIS AM. CALL LT IN REACH. ABLE TO MAKE NEEDS KNOWN.
--- NOTE | 2020-09-18 19:05 | NUR ---
ASSUMED CARE RECEIVED REPORT FROM CLAUDIA ESPINOZA. PT UP IN RECLINER, IN NO ACUTE DISTRESS. RESPS E/U. REQUESTING PAIN MEDS AND TO BE PUT BACK IN BED. WILL MEDICATE PER EMAR. NO OTHER ACUTE NEEDS ASSESSED AT THIS TIME. CALL LIGHT, POSSESSIONS IN REACH.
[2020-09-19 05:31] LABS: Albumin, Blood 2.4 g/dL (3.4-5.0); Anion Gap 5 mmol/L (6-16); Blood Urea Nitrogen 7 mg/dL (8-24); Bun/Creatinine Ratio 9.1 (12.0-20.0); CO2, Blood 30 mmol/L (21-32); Calcium, Blood 8.4 mg/dL (8.5-10.1); Chloride, Blood 103 mmol/L (98-108); Creatinine, Blood 0.77 mg/dL (0.40-1.00); Glomerular Filtration Rate >60 (60-); Glucose, Blood 85 mg/dL (70-99); Magnesium, Blood 1.8 mg/dL (1.6-2.4); Phosphorus, Blood 4.3 mg/dL (2.5-4.9); Sodium, Blood 138 mmol/L (136-145)
--- NOTE | 2020-09-19 06:41 | NUR ---
HOLLOW WARE MAKER SUMMARY PT ASLEEP, IN NO ACUTE DISTRESS. VS REVIEWED,WNL. O2 SATS STABLE ON 3L/NC, AT BASELINE. PT DENIES SOB. WAS UP IN CHAIR UNTIL BEDTIME, TOLERATED FAIRLY. REPOSITIONED IN BED TOLERATED. NO ACUTE CHANGES IN CONDITION TO REPORT OVERNIGHT. COMPLIANT WITH FLUID RESTRICTION. NO ACUTE NEEDS ASSESSED AT THIS TIME. CALL LIGHT, POSSESSIONS IN REACH. WILL REPORT OFF TO ONCOMING RN.
--- NOTE | 2020-09-19 16:39 | NUR ---
SHIFT SUMMARY PT AxOx4. PLEASANT AND COOPERATIVE WITH CARE. PT BEDBOUND AT BASELINE. ON 2L FLUID RESTRICTION FOR ANASARCA AND INCONTINENT OF BOWEL AND BLADDER. BREATHING WITHOUT DIFFICULTY ON 3L O2 VIA NC. PT HAVING EMOTIONAL DAY WITH INTERMITTENT TEARFULNESS. SPIRITUAL CARE CONSULTED AND THERAPEUTIC COMMUNICATION PROVIDED. PT C/O PAIN IN YOLANDA KNEES AND ITCHINESS ALL OVER TODAY. MEDICATED PER EMAR. WORKED WITH PT TODAY. SKIN CARE PERFORMED ON AREAS WITH BREAKDOWN- UNDER PANNUS, BREASTS AND GLUTEAL CREASES. PT CURRENTLY RESTING IN BED WITH CALL LIGHT IN REACH. DENIES ANY NEEDS AT THIS TIME. VITALS REVIEWED. CURRENT PLAN PENDING SNF PLACEMENT.
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
--- NOTE | 2020-09-20 05:46 | NUR ---
SHIFT SUMMARY: AOX3, COOPERATIVE. BEDBOUND. ABLE TO MOVE SLIGHTLY IN BED. EDEMA GENERALIZED ALL OVER. ROUGH SKIN TO BLE AND SOME AREA ON THE BACK SIDE. DRESSING TO LEFT POSTERIOR KNEE INTACT. ANTIFUNGAL POWDER TO SKIN FOLD DUE TO SKIN TEARS. VSS/AFREBRILE. PAIN MANAGED WITH CURRENT TREATMENT. FOLLOWING FLUID RESTRICTION. NO ACUTE CHANGES. CALL LIGHT IN REACH.
--- NOTE | 2020-09-20 14:07 | NUR ---
midodrine given about an hour ago, noted systolic 97 mm Hg. At this time blood pressure is improved 106/60 and pt has been assisted back into bed with use of sling lift sheet from the recliner where she has been for 4 hours, approximately.
--- NOTE | 2020-09-20 20:47 | NUR ---
ASSUMPTION OF CARE. REPORTS NO CHANGES TODAY EXCEPT THAT SHE MIGHT HAVE A PLACE TO GO. SHE DID TALK ABOUT NEEDING TO LOSE MORE WEIGHT AND BEING MORE MOBILE BEFORE SHE CAN GO. GAVE ENCOURAGEMENT. ATTENDS DRY. BARRIER CREAM UNDER PANUS. DRESSING TO LEFT POSTERIOR THIGH CDI. PAIN 8/10. WILL MONITOR. CALL LIGHT IN REACH.
--- NOTE | 2020-09-21 05:34 | NUR ---
SHIFT SUMMARY: BERNARD COMPLAINTED MORE ABOUT HER LEGS BEING VERY TINGLING AND PAINFUL. ENCOURAGED MOVEMENT, FEET PUMPING. SHE SAID NOTHING HELPS. BOTTOM IS LOOKING BETTER, SKIN TEARS UNDER PANUS STILL RED AND PAINFUL, REDNESS IN GROIN. DRESSING TO POSTERIOR LEFT CALF INTACT. PAIN MANAGED WITH CURRENT MEDS. VSS/AFEBRILE. CALL LIGHT IN REACH.
--- NOTE | 2020-09-21 16:41 | NUR ---
Shift Summary A/Ox3-4, pleasant and cooperative. Lack motivation with activity, but agreeable. Up in recliner with lift assist. Also worked with PT extensively today. Compliant with fluid restriction. Medicated x 2 per EMAR for bilat knee pain. Lidocaine patch and aspercreme also applied to bilat knees. Wound photos have been updated and placed in chart. Appetite is good. No family visitors this shift. No acute changes, awaiting safe discharge.
--- NOTE | 2020-09-21 17:34 | NUR ---
Supportive visit to Anais this afternoon. she is in better spirits today and reports hope. She says she is working hard to get to rehab and wants to regain her independance. I will continue to follow.
--- NOTE | 2020-09-21 19:50 | NUR ---
ASSUMPTION OF CARE. AOX3, STATES SHE GOT TO GO TO THE "GYM" TODAY. PT WAS ABLE TO TAKE HER DOWN TO THE PT ROOM. SHE SAID IT WAS NICE TO GET OUT OF THE ROOM. DENIES ANY CHANGES OR CONCERN. PAIN IS 7/10 AT THIS TIME. MEDS NOT DUE TILL 2099. POWDER CURRENTLY IN SKIN FOLDS. DRESSING TO BACK OF LEG INTACT. WILL CONTINUE TO MONITOR. CALL LIGHT IS IN REACH.
--- NOTE | 2020-09-22 06:32 | NUR ---
SHIFT SUMMARY: BERNARD WAS IN GOOD SPIRITS THIS SHIFT. SLEEPING WELL T/O THE NIGHT. NO ACUTE CHANGES OR CONCERNS. VSS/AFEBRILE. CALL LIGHT IN REACH.
--- NOTE | 2020-09-22 15:50 | NUR ---
Shift Summary Patient worked extensively with PT this shift and was cooperative with care. Medicated for pain x 2 per EMAR with some relief. Up in chair for lunch. No acute changes, VSS, WCTM.
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
--- NOTE | 2020-09-23 06:09 | NUR ---
SHIFT SUMMARY: VSS/AFEBRILE. EDEMA BLE. WT 181 DOWN 4 LBS. LUNGS DIMINISHED, NO CHANGE TO OXYGEN LEVELS. PAIN MANAGED WITH CURRENT MEDS. IS ENCOURAGED EVERYDAY THAT SHE GOES TO THE PT ROOM. NO ACUTE CHANGES TO NOTE. CALLS APPROPRIATLY.
--- NOTE | 2020-09-23 19:21 | NUR ---
SHIFT SUMMARY BERNARD COMPLAINED OF KNEE PAIN, GOT OXY AND HYDROXIZINE X2. UP TO CHAIR FOR THREE HOURS FROM 10AM UNTIL 1PM. ON 2L FLUID RESTRICTION. ON 4L OXYGEN. AO2 TO ROLL TO CHANGE INCONTINENT URINE. CONTINENT STOOL THIS SHIFT, HAD LARGE BM ON BED VELASQUEZ. UNDER PANUS SKIN TEARS CLEANED AND PILLOW CASES APPLIED. DAUGHTER VISITED. CALL LIGHT IN REACH, REPORT GIVEN TO NIGHT NURSE
--- NOTE | 2020-09-23 20:05 | NUR ---
ASSUMED CARE. NO CHANGES WITH BERNARD, STILL ON 4 LITERS OF 02. COUGH IS MILD. SOB WITH MOVEMENT. PAIN IS HER AVERAGE. SWELLING STILL IN BLE. DIMINISHED LUNG SOUNDS. GOOD APPETITE, STICKING TO THE FLUID RESTRICTION. DENIES ANY NEEDS AT THIS TIME.
--- NOTE | 2020-09-24 04:46 | NUR ---
SHIFT SUMMARY: VSS/AFEBRILE. STATES PAIN IS AVERAGING BETWEEN 7-10. TENDS TO REALLY HURT AROUND THE CASH SPECIALIST DOSE. WAKES UP IN PAIN BEFORE DOSE IS DO AND IS UNABLE TO MOVE MUCH DUE TO THIS. NO OTHER CHANGES ARE TO NOTE. CALL LIGHT IS USED APPROPRIATLY TO MAKE NEEDS KNOWN.
[2020-09-24 05:18] LABS: Hematocrit 32.7 % (33.0-51.0); Hemoglobin 10.7 g/dL (11.5-16.0); Mean Corpuscular HGB 33.1 pg (26.0-34.0); Mean Corpuscular HGB Conc 32.7 g/dL (31.5-36.5); Mean Corpuscular Volume 101 fL (80-100); Mean Platelet Volume 10.2 fL (9.1-12.4); Platelet Count 213 K/mm3 (150-400); RDW Standard Deviation 59.7 fL (35.1-46.3); Red Blood Cell Count 3.23 M/mm3 (3.80-5.20); White Blood Cell Count 7.03 K/mm3 (4.00-11.30)
[2020-09-24 05:40] LABS: Alanine Aminotransfer (ALT/SGP 15 U/L (12-78); Albumin, Blood 2.5 g/dL (3.4-5.0); Albumin/Globulin Ratio 0.7 (0.8-1.8); Alk Phos 88 U/L (50-136); Anion Gap 2 mmol/L (6-16); Aspartate Aminotrans (AST/SGOT 33 U/L (12-37); Blood Urea Nitrogen 8 mg/dL (8-24); CO2, Blood 31 mmol/L (21-32); Calcium, Blood 8.5 mg/dL (8.5-10.1); Chloride, Blood 102 mmol/L (98-108); Globulin, Blood 3.7 g/dL (2.2-4.0); Glomerular Filtration Rate >60 (60-); Glucose, Blood 84 mg/dL (70-99); Magnesium, Blood 1.8 mg/dL (1.6-2.4); Potassium, Blood 4.2 mmol/L (3.5-5.5); Sodium, Blood 135 mmol/L (136-145); Total Protein, Blood 6.2 g/dL (6.4-8.2)
--- NOTE | 2020-09-24 19:11 | NUR ---
SHIFT SUMMARY BERNARD GOT OXY AND ATARAX FOR HER PAIN THIS SHIFT. DECLINED GETTING UP TO CHAIR WITH LIFT THIS SHIFT. WORKED WITH PT ON BED MOBILITY. AO1-2 TO TURN AND CHANGE, INCONTINENT URINE THIS SHIFT. SKIN TEARS UNDER PANUS FOLDS, PILLOWCASE APPLIED. MICONAZOLE POWDER APPLIED TO UNDERARMS AND NECK FOLDS. TOOK MEDS WHOLE WITH APPLESAUCE. MAINTAINED 2L FLUID RESTRICTION. CALL LIGHT IN REACH, REPORT GIVEN TO NIGHT NURSE
--- NOTE | 2020-09-25 07:22 | NUR ---
SHIFT SUMMARY: BERANRD IS A&OX4. VSS, NO ACUTE EVENTS OVERNIGHT. SHE REPORTS ADEQUATE PAIN CONTROL WITH 15 MG OF OXYCODONE. SHE IS A ONE PERSON ASSIST TO TURN/REPOSITION IN BED. ATTENDS IN PLACE, INCONTINENT OF BLADDER. SHE IS TOLERATING PO INTAKE WELL, MAINTAINING FLUID INTAKE < 2L. LIFT SHEET IN PLACE. SHE IS MAINTAINING O2 SATS ON 4L VIA NC, SOB ON EXERTION NOTED. SHE IS LYING IN BED WITH THE CALL LIGHT IN REACH, WHICH SHE USES APPROPRIATELY. WILL REPORT TO DAY SHIFT RN.
--- NOTE | 2020-09-25 17:56 | NUR ---
SHIFT SUMMARY BERNARD GOT OXY FOR PAIN THIS SHIFT. DECLINED TO GET OOB TO CHAIR WITH LIFT, SO SHE WAS ENCOURAGED TO DO HER EXERCISES IN BED SEVERAL TIMES. TOOK MEDS IN PUDDING. MAINTAINED 2L FLUID RESTRICTION. SKIN TEARS UNDER PANUS, KEPT CLEAN AND DRY. INCONTINENT URINE THIS SHIFT. AO1 TO TURN HER TO CHANGE HER BRIEF, ABLE TO ROLL WITH MINIMAL ASSIST WITH HOB FLAT. CONTINUES ON 4L OXYGEN. CALL LIGHT IN REACH, WCTM
--- NOTE | 2020-09-26 06:10 | NUR ---
SHIFT SUMMARY: PATIENT IS A&OX4, CONTINUES TO HAVE CHRONIC BILAT KNEE PAIN 7-12/13. OXYCODONE 15MG, LIDOCANE PATCHES TO BILAT KNEES ARE EFFECTIVE FOR PAIN. INC. OF URINE THIS SHIFT. PATIENT IS COMPLIANT WITH FLUID RESTRICTION AND CALL FPOR ASSISTANCE APPROPRIATELY.
--- NOTE | 2020-09-26 16:31 | NUR ---
SHIFT SUMMARY PT A/O X4; PLEASANT AND COOPERATIVE WITH CARE. PT A MAX ASSIST WITH THE CEILING LIFT. WORKS WITH P.T./O.T. AND IS VERY MOTIVATED. C/O -12/13 PAIN IN HER KNEES. MEDICATED PER EMR. INCONT OF URINE. ABLE TO MAKE NEEDS KNOWN. WAS JITTERY THIS AM AFTER RECEIVING HER BREATHING TREATMENT; PHYSICIAN NOTIFIED. VSS. RESTING COMFORTABLY IN BED WITH HER CALL LIGHT IN REACH.
--- NOTE | 2020-09-26 18:46 | NUR ---
Spiritual care note: Supportive visit to Anais this afternoon. She reports determination to improve and is proud of her progress. She shared more of her story with me today, and she responded well to gentle child care counselor. I will continue to see Anais as case-load permits.
[2020-09-27 05:30] LABS: Hematocrit 32.9 % (33.0-51.0); Hemoglobin 10.7 g/dL (11.5-16.0); Mean Corpuscular HGB Conc 32.5 g/dL (31.5-36.5); Mean Corpuscular Volume 102 fL (80-100); Mean Platelet Volume 9.8 fL (9.1-12.4); Platelet Count 204 K/mm3 (150-400); RDW Coefficient Variation 15.9 % (11.7-14.2); RDW Standard Deviation 59.7 fL (35.1-46.3); Red Blood Cell Count 3.24 M/mm3 (3.80-5.20); White Blood Cell Count 6.87 K/mm3 (4.00-11.30)
--- NOTE | 2020-09-27 06:09 | NUR ---
PT IS A/O, BEDBOUND LIFT PT, MEDICATED FOR BILAT KNEE PAIN AND ITCHING PER EMAR. INCONTINENT WEARING ATTENDS. PT IS ON BARIATRIC AIR BED. PREFERS MEDS IN CHOCOLATE PUDDING.
[2020-09-27 06:21] LABS: Alanine Aminotransfer (ALT/SGP 17 U/L (12-78); Albumin, Blood 2.5 g/dL (3.4-5.0); Albumin/Globulin Ratio 0.7 (0.8-1.8); Alk Phos 89 U/L (50-136); Anion Gap 4 mmol/L (6-16); Aspartate Aminotrans (AST/SGOT 33 U/L (12-37); Blood Urea Nitrogen 8 mg/dL (8-24); Bun/Creatinine Ratio 10.5 (12.0-20.0); CO2, Blood 30 mmol/L (21-32); Calcium, Blood 8.6 mg/dL (8.5-10.1); Chloride, Blood 102 mmol/L (98-108); Creatinine, Blood 0.77 mg/dL (0.40-1.00); Free Thyroxine 1.21 ng/dL (0.70-1.60); Globulin, Blood 3.7 g/dL (2.2-4.0); Glomerular Filtration Rate >60 (60-); Glucose, Blood 88 mg/dL (70-99); Potassium, Blood 4.3 mmol/L (3.5-5.5); Sodium, Blood 136 mmol/L (136-145); Total Protein, Blood 6.2 g/dL (6.4-8.2)
--- NOTE | 2020-09-27 16:29 | NUR ---
SHIFT SUMMARY PT AxOx4. PLEASANT AND COOPERATIVE WITH CARE. PT UP IN RECLINER TODAY FOR A COUPLE HOURS. PT REQUESTED TO GET BACK INTO BED AFTER LEGS BECAME TOO PAINFUL. WORKED WITH PT/OT TODAY. PT REPORTED PAIN AND ITCHING T/O THE DAY. MEDICATED PER EMAR. VITALS REVIEWED. PT HAD VISITOR TODAY AND SEEMED IN GOOD SPIRITS. PT DENIES ANY NEEDS AT THIS TIME. CALL LIGHT IN REACH.
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
--- NOTE | 2020-09-28 04:00 | NUR ---
RN TO HOME HELP AIDE. REPORT TAKEN FROM RODRIGUEZ TAYLOR.
--- NOTE | 2020-09-28 04:06 | NUR ---
PT IS A/O, BEDBOUND DUE TO OBESITY, DRESSING TO POWERGLIDE CHANGED THIS SHIFT, FLUSHED AND CAPS CHANGED. PT MEDICATED FOR BILATERAL KNEE PAIN AND GENERAL ITCHING THIS SHIFT. PT IS ON AIRBED, LIFT TRANSFER AND 4L O2 VIA N/C. PLAN TO D/C WITH PLACEMENT. REPORT GIVEN TO VITALIY TAYLOR.
--- NOTE | 2020-09-28 17:20 | NUR ---
NO ACUTE CHANGES AT THIS TIME. PT CALL APPROPRIATELY AND MAKES HER NEEDS KNOWN. AOX4 AND COOPERATIVE OF CARE. PT HAS BEEN TREATED FOR PAIN PER EMAR. PT IS A LIFT PT AND HAS BEEN WORKING WELL WITH PHYSICAL THERAPY. PT WAS UP IN CHAIR IN THE AM. NO DISTRESS NOTED WILL CONTINUE TO MONITOR.
[2020-09-29 05:15] LABS: Hematocrit 31.8 % (33.0-51.0); Hemoglobin 10.2 g/dL (11.5-16.0); Mean Corpuscular HGB 32.5 pg (26.0-34.0); Mean Corpuscular HGB Conc 32.1 g/dL (31.5-36.5); Mean Corpuscular Volume 101 fL (80-100); Mean Platelet Volume 9.8 fL (9.1-12.4); Platelet Count 191 K/mm3 (150-400); RDW Coefficient Variation 15.9 % (11.7-14.2); RDW Standard Deviation 58.8 fL (35.1-46.3); Red Blood Cell Count 3.14 M/mm3 (3.80-5.20); White Blood Cell Count 6.88 K/mm3 (4.00-11.30)
--- NOTE | 2020-09-29 05:40 | NUR ---
SHIFT SUMMARY NO ACUTE CHANGES THIS SHIFT. AOX4. VSS. DENIES N/V. REPORTS 02/12 CONSTANT PAIN IN BILAT KNEES, MEDICATED PER EMAR & REPOSITIONED- PT ABLE TO FALL ASLEEP. LUNGS SOUND DIM c WHEEZES, PT DENIED NEED FOR BREATHING TX STATED THE LAST ONE SHE RECIEVED MADE HER HAVE A "PANIC ATTACK". DENIES SOB. SPO2 >90% ON 4L. FOLDS CLEANSED, DIRED & MICONAZOLE POWDER APPLIED. AWAITING PLACEMENT. CALL LIGHT IN REACH & PT ABLE TO MAKE NEEDS KNOWN. WCTM.
[2020-09-29 05:51] LABS: Alanine Aminotransfer (ALT/SGP 15 U/L (12-78); Albumin, Blood 2.6 g/dL (3.4-5.0); Albumin/Globulin Ratio 0.7 (0.8-1.8); Alk Phos 77 U/L (50-136); Anion Gap 4 mmol/L (6-16); Aspartate Aminotrans (AST/SGOT 26 U/L (12-37); Blood Urea Nitrogen 9 mg/dL (8-24); Bun/Creatinine Ratio 10.6 (12.0-20.0); CO2, Blood 31 mmol/L (21-32); Calcium, Blood 8.5 mg/dL (8.5-10.1); Chloride, Blood 102 mmol/L (98-108); Creatinine, Blood 0.85 mg/dL (0.40-1.00); Globulin, Blood 3.6 g/dL (2.2-4.0); Glomerular Filtration Rate >60 (60-); Glucose, Blood 89 mg/dL (70-99); Magnesium, Blood 1.8 mg/dL (1.6-2.4); Sodium, Blood 137 mmol/L (136-145); Total Protein, Blood 6.2 g/dL (6.4-8.2)
--- NOTE | 2020-09-29 17:17 | NUR ---
Shift Summary A/Ox4, refused to sit in recliner today and asked to work with PT in bed instead. Medicated per EMAR for bilat knee pain with minimal relief. Allowing change and reposition. Appetite is good. No acute changes, awaiting safe d/c plan.
--- NOTE | 2020-09-29 17:32 | NUR ---
Spiritual care note: Lengthy visit with Anais today. She is feeling discouraged. Gentle diet counselor was well recieved. Sheet Roller Operator services will remain available.
--- NOTE | 2020-09-30 19:22 | NUR ---
PT A&O AND ABLE TO MAKE NEEDS KNONW. PT ACCEPTING OF CARE. NO ACUTE CHANGES TO REPORT THIS SHIFT. PT COMPLAINED OF PAIN THIS SHIFT AND MEDICATED PER EMAR. NOTIFIED DR. PT BEING IN CONSTANT PAIN AND PT RECEIVED AN ADDITIONAL ONE TIME DOSE OF ROXICODONE. PT STATED IT DID DECREASE PAIN BUT IT WAS STILL THERE. PT RECEIVED BED BATH THIS SHIFT AND ACTIVELY PARTICIPATED IN TURNING AND SELF CARE. PT CURENTLY IN BED WATCHING TV. CALL LIGHT W/IN REACH.
--- NOTE | 2020-10-01 04:07 | NUR ---
SHIFT SUMMARY ADMITTED FOR ANASARCA. FULL CODE. PT IS WAITING ON PLACEMENT IN SNF - STATES THAT [place] IS A POSSIBILITY BUT UNSURE OF TIME FRAME. PT MEDICATED FOR PAIN AND ITCHING X1 THIS SHIFT. PT RESTING ON 3L NC. NO OTHER CONCERNS THIS SHIFT.
--- NOTE | 2020-10-01 04:17 | NUR ---
CTA/RUSTIC FENCE BUILDER I HAVE ASSESSED THIS PT. I HAVE READ THE RUSTIC FENCE BUILDER'S DOCUMENTATION AND I AGREE. SHIFT SUMMARY IN RUSTIC FENCE BUILDER NOTES.
[2020-10-01 05:14] LABS: Albumin, Blood 2.6 g/dL (3.4-5.0); Anion Gap 2 mmol/L (6-16); Blood Urea Nitrogen 10 mg/dL (8-24); Bun/Creatinine Ratio 11.9 (12.0-20.0); CO2, Blood 34 mmol/L (21-32); Calcium, Blood 8.4 mg/dL (8.5-10.1); Chloride, Blood 101 mmol/L (98-108); Creatinine, Blood 0.84 mg/dL (0.40-1.00); Glomerular Filtration Rate >60 (60-); Glucose, Blood 100 mg/dL (70-99); Potassium, Blood 3.6 mmol/L (3.5-5.5); Sodium, Blood 137 mmol/L (136-145)
--- NOTE | 2020-10-01 17:52 | NUR ---
SHIFT SUMMARY NO ACUTE CHANGES NOTED TO PT THIS SHIFT. A&OX4, ABLE TO MAKE NEEDS KNOWN, PLEASANT AND COOPERATIVE WITH CARE. PT IS 2P MAX ASSIST WITH BED MOBILITY AND W/ TRANSFERS. PT REFUSE TO GET UP FROM BED THIS SHIFT, NOTIFIED PT STAFF. PATIENT AGREED TO WORK WITH PT AND DO BED EXERCISES TODAY. PT MEDICATED FOR PAIN PER EMAR. NO C/O CP OR N&V. PT CONT TO EXPERIENCE SOB WITH EXERTION. BED AT LOWEST POSITION. CALL LIGHT WITHIN REACH. AWAITING PLACEMENT.
--- NOTE | 2020-10-02 05:10 | NUR ---
SHIFT SUMMARY LYING IN SEMI FOWLERS WITH EYES CLOSED, HAS RESTED WELL THIS SHIFT. AAO X3, FOLLOWS ALL COMMANDS. HAS BEEN PLEASANT AND COOPERATIVE WITH CARE. PAIN MANAGED WITH PRN PAIN MEDS. SAFETY MEASURES IN PLACE. WILL CONTINUE TO MONITOR AND ADDRESS NEEDS AND CHANGES THROUGHOUT REMAINDER OF SHIFT, AND GIVE HAND OFF TO ONCOMING SHIFT USING SBAR.
--- NOTE | 2020-10-02 16:12 | NUR ---
SHIFT SUMMARY PT A&OX4, ABLE TO MAKE NEEDS KNOWN. PLEASANT AND COOPERATIVE TO CARE. PT MEDICATED FOR PAIN PER EMAR. NO C/O CP OR N/V/D. PT C/O SOB W/ EXERTION. PT ON 3LPM O2 VIA NC, SATS >92%. PT REQUIRES 2P MAX ASSIST W/ LIFT DURING TRANSFERS, FAIR BED MOBILITY. PT INCONTINENT, ATTENDS IN PLACE, DENIES DYSURIA. BED AT LOWEST POSITION. CALL LIGHT WITHIN REACH.
--- NOTE | 2020-10-03 06:54 | NUR ---
SUMAA NO NEW CHANGES NOTED. PT TX FOR PAIN PER EMAR. PT HAS SLEPT T/O SHIFT. PT CALL LIGHT IN REACH.
--- NOTE | 2020-10-03 16:50 | NUR ---
SHIFT SUMMARY NO ACUTE CHANGES NOTED TO PT THIS SHIFT. A&OX4, ABLE TO MAKE NEEDS KNOWN, PLEASANT AND COOPERATIVE TO CARE. MEDICATED FOR PAIN FOR PER EMAR. PT PERFORMED BED EXERCISES WITH PHYSICAL THERAPY THIS SHIFT. NO C/O CP, SOB, OR N&V. BED AT LOWEST POSITION. CALL LIGHT WITHIN REACH. AWAITING PLACEMENT.
--- NOTE | 2020-10-04 05:01 | NUR ---
SHIFT SUMMARY NO ACUTE CHANGES THIS SHIFT. AOX4. VSS. SPO2 >90% ON 3L O2. REPORTS 9/10 BILAT KNEE PAIN, MEDICATED 2X c 15MG OXYCODONE, ABLE TO REST COMFORTABLY. DEPENDENT EDEMA T/O BODY. UNDER FLUID RESTRICTION TONIGHT @ROUGHLY 1695ML INTAKE, PER DAILY WT LOST 2 KG. CLEANSED, DRIED & APPLIED MICONAZOLE POWDER TO FOLDS. AWAITING PLACEMENT. CALL LIGHT IN REACH. TM.
--- NOTE | 2020-10-04 16:04 | NUR ---
SHIFT SUMMARY PT AxOx4. PLEASANT AND COOPERATIVE WITH CARE. PATIENT WORKED WITH PT AND OT TODAY. UP IN RECLINER FOR 2+ HOURS. MANAGER OF TAX WASHED AND BRAIDED PATIENT'S HAIR. PT STILL BED/CHAIRBOUND AT BASELINE. INCONTINENT WITH ATTENDS IN PLACE. PT'S DAUGHTER IN TODAY FOR VISIT. SPIRITUAL CARE IN TO SEE PATIENT x2 TODAY. PT REPORTS CHRONIC PAIN IN BLE AND OVERALL BODY ITCHING. MEDICATED PER EMAR. PT ON 3L O2 VIA NC AND 2L FLUID RESTRICTION. PT COMPLIANT WITH FLUID RESTRICTION. PICC LINE DRESSING CHANGED TODAY. PT CURRENTLY RESTING IN BED WITH CALL LIGHT IN REACH. DENIES ANY NEEDS AT THIS TIME. CURRENT PLAN IS PENDING SNF PLACEMENT.
--- NOTE | 2020-10-04 18:38 | NUR ---
Spiritual care note: Supportive visit with Anais today. She tells me she is in better spirits today and has "worked hard with PT." She certainly appears motivated for change. We spoke more about her life story and behavioral school counselors was well recieved. I will continue to follow as case-load permits.
--- NOTE | 2020-10-05 04:54 | NUR ---
SHIFT SUMMARY AOX4. VSS. REPORTS 9-10 PAIN IN BILAT KNEES, MEDICATED 2X c 15MG OXYCODONE. ABLE TO REST COMFORTABLY T/O NIGHT. INCONT OF URINE, ATTENDS CHANGED PRN. FOLDS CLEANSED & MICONAZOLE POWDER APPLIED. REPORTS NO BM IN 3 DAYS, MIRALAX GIVEN. AWAITING PLACEMENT. CALL LIGHT IN REACH. WCTM.
--- NOTE | 2020-10-05 16:18 | NUR ---
Spiritual care note: Anais was tired today. We spoke for a while, and she responded well to gentle encouragement. I will remain available.
--- NOTE | 2020-10-05 17:28 | NUR ---
SHIFT SUMMARY: NO ACUTE EVENTS. LAST RECORDED BM WAS 09/28; STARTED ON DOCUSATE IN ADDITION TO MIRALAX. DENIES ABD DISCOMFORT, IS PASSING GAS. COMPLIANT WITH FLUID RESTRICTION. C/O ITCHING ON ABDOMEN AND UPPER BACK; MEDICATED PER EMAR. C/O CHRONIC PAIN IN BILATERAL KNEES; MEDICATED PER EMAR WITH SOME RELIEF. TRANSFERS TO CHAIR WITH LIFT; WENT TO PHYSICAL THERAPY GYM TODAY. O2 @ 3 L/MIN NC, BASELINE. AWAITING PLACEMENT.
[2020-10-06 05:02] LABS: Albumin, Blood 2.6 g/dL (3.4-5.0); Anion Gap 4 mmol/L (6-16); Blood Urea Nitrogen 11 mg/dL (8-24); Bun/Creatinine Ratio 13.5 (12.0-20.0); CO2, Blood 35 mmol/L (21-32); Calcium, Blood 8.8 mg/dL (8.5-10.1); Chloride, Blood 99 mmol/L (98-108); Creatinine, Blood 0.81 mg/dL (0.40-1.00); Glomerular Filtration Rate >60 (60-); Glucose, Blood 109 mg/dL (70-99); Phosphorus, Blood 4.1 mg/dL (2.5-4.9); Potassium, Blood 3.9 mmol/L (3.5-5.5); Sodium, Blood 138 mmol/L (136-145)
--- NOTE | 2020-10-06 06:20 | NUR ---
SHIFT SUMMARY A/O, ABLE TO MAKE NEEDS KNOWN. COOPERATIVE WITH CARE. CALLS AND ANSWERS QUESTIONS APPROPRIATELY. C/O PAIN/DISCOMFORT TO KNEES BILATERALLY; MEDICATED PER EMAR. APPEARED TO REST MUCH OF THE NIGHT; STATES HOWEVER WAS NOT ABLE TO SLEEP FOR MOST OF THE NIGHT. CONTINUES TO AWAIT PLACEMENT. NO ACUTE CHANGES NOTED OVERNIGHT. VSS/AFEBRILE. BED REMAINED IN LOWEST POSITION. CALL LIGHT AND BELONGINGS WITHIN REACH. CONTINUE WITH CURRENT PLAN OF CARE. REPORT TO ONCOMING RN.
--- NOTE | 2020-10-06 16:42 | NUR ---
Spiritual care note: Flame Degreaser and emotional support provided.
--- NOTE | 2020-10-06 18:52 | NUR ---
SHIFT SUMMARY: NO ACUTE EVENTS. C/O CHRONIC PAIN IN BLE; MEDICATED PER EMAR AND REPOSITIONED PRN. WAS UP TO CHAIR FOR 6 HOURS STRAIGHT TODAY, WORKED WITH PHYSICAL THERAPY. POWERGLIDE IV REMOVED. USING O2 @ 3 L/MIN NC. HAS OPEN AREAS IN SKIN FOLDS OF PANNUS; KEEPING DRY WITH COTTON WIPES. COMPLIANT WITH 2 L FLUID RESTRICTION.
--- NOTE | 2020-10-07 04:52 | NUR ---
SHIFT SUMMARY A/O, ABLE TO MAKE NEEDS KNOWN. COOPERATIVE WITH CARE. CALLS AND ANSWERS QUESTIONS APPROPRIATELY. C/O PAIN/DISCOMFORT TO BILATERAL KNEES (CHRONIC); MEDICATED PER EMAR WELL OFFERED NON-PHARMACOLOGIC OPTIONS. DID NOT APPEAR TO REST WELL OVERNIGHT. REMAINS ON 3L VIA NC BASELINE DOSE. CONTINUES TO AWAIT PLACEMENT. NO OTHER ACUTE CHANGES NOTED OVERNIGHT. HELPS TURN AND REPOSITION. CALL LIGHT AND BELONGINGS WITHIN REACH. CONTINUE WITH CURRENT PLAN OF CARE. REPORT TO ONCOMING RN.
--- NOTE | 2020-10-07 19:19 | NUR ---
SHIFT SUMMARY PT COMPLAINED OF KNEE PAIN AND GOT OXY AND ATARAX TWICE THIS SHIFT. MICONAZOLE APPLIED TO FOLDS. INCONT URINE, CHANGED REGULARLY. MAINTAINED 2L FLUID RESTRICTION. TOOK MEDS IN PUDDING. ON 3L OXYGEN BASELINE LEVEL. SKIN TEARS UNDER PANUS KEPT DRY WITH PILLOWCASES AND ANTIFUNGAL POWDER. COCCYX INTACT. EDEMATOUS. GOT UP TO CHAIR WITH LIFT. PT AND OT WORKED WITH HER. CALL LIGHT IN REACH, REPORT GIVEN TO NIGHT NURSE
--- NOTE | 2020-10-08 04:12 | NUR ---
SHIFT SUMMARY NO ACUTE CHANGES THIS SHIFT, MEDICATED PER MAR FOR PAIN & ITCHING, NO OTHER C/O ANY KIND, SLEPT INTERMITTENTLY T/O THE NIGHT, SLEEPING AT THIS TIME, CALL LIGHT IN REACH, [facility]PORT GIVEN TO DAY RN.
[2020-10-08 06:06] LABS: Anion Gap 3 mmol/L (6-16); Blood Urea Nitrogen 11 mg/dL (8-24); Bun/Creatinine Ratio 13.1 (12.0-20.0); CO2, Blood 33 mmol/L (21-32); Calcium, Blood 8.5 mg/dL (8.5-10.1); Chloride, Blood 100 mmol/L (98-108); Creatinine, Blood 0.84 mg/dL (0.40-1.00); Glomerular Filtration Rate >60 (60-); Glucose, Blood 93 mg/dL (70-99); Potassium, Blood 3.9 mmol/L (3.5-5.5); Sodium, Blood 136 mmol/L (136-145)
--- NOTE | 2020-10-08 16:15 | NUR ---
PT IS REFUSING TO GET OUT OF BED TODAY. PT HAS A TIMER IN ROOM ON TABLE THAT SHE IS SUPPOSE TO USE FOR REMINDERS TO WORKOUT. SHE HAS REFUSED TO TURN IT OUT.
--- NOTE | 2020-10-08 17:28 | NUR ---
SHIFT SUMMARY PT ALERT ORIENTED; USES LIFT. PT REFUSED TO DO THE DAILY EXERCISE TODAY. REMINDED THROUGHOUT THE DAY. PT MEDICATED FOR PAIN. PT ON 3L OF 02 AT BASELINE. NO OTHER C/O. BED IS IN THE LOWEST POSITION AND CALL LIGHT WITHIN REACH
--- NOTE | 2020-10-09 05:25 | NUR ---
SHIFT SUMMARY- NO ACUTE EVENT OVERNIGHT. PT. SLEPT ON/OFF DURING THE NIGHT, NO APPARENT DISTRESS NOTED. MEDICATED FOR YOLANDA LEG AND KNEE PAIN, PT. REPORTED MINIMAL RELIEF. REPOTIONED FOR COMFORT AND PRN, VSS. CALL LIGHT WITHIN REACH AND SIDE RAILS UPX2. WILL CONT MONITOR.
--- NOTE | 2020-10-09 17:56 | NUR ---
SHIFT SUMMARY PT ALERT AND ORIENTED. VERY PAINFUL; MEDICATED SCHEDULED AND PRN MEDS. NO C/O OF CP OR SOB. PT REMINDED TO DO THE EXERCISES. PT ALSO C/O OF ITCHING BACK; MEDICATED PER EMAR. BED IS IN THE LOWEST POSITION AND CALL LIGHT WITHIN REACH
--- NOTE | 2020-10-10 03:42 | NUR ---
SHIFT SUMMARY A/OX4, PLEASANT AND COOPERATIVE WITH CARE. BEDREST WITH USE OF LIFT. C/O PAIN TO BILATERAL KNEES, MEDICATED PER EMAR X2. VSS, NO ACUTE CHANGES AT THIS TIME. AWAITING PLACEMENT FOR SAFE D/C. BED IN LOWEST POSITION WITH CALL LIGHT IN REACH. WILL CONTINUE TO MONITOR AND REPORT TO ONCOMING RN.
--- NOTE | 2020-10-10 17:04 | NUR ---
NO ACUTE CHANGES.PT DID START OUT SHIFT STATING SHE WAS HOME SICK. PT IS AOX4 AND COOPERATIVE OF CARE. PT WORKED WELL WITH PHYSICAL THERAPY AND REPORTED STANDING FOR THE FIRST TIME TODAY. PT IS A LIFT TO CHAIR AND BACK TO BED. NO DISTRESS NOTED KNEE PAIN TREATED PER EMAR. CALL LIGHT WITHIN REACH WILL CONTINUE TO MONITOR.
[2020-10-11 05:49] LABS: Anion Gap 4 mmol/L (6-16); Blood Urea Nitrogen 13 mg/dL (8-24); Bun/Creatinine Ratio 15.3 (12.0-20.0); CO2, Blood 37 mmol/L (21-32); Calcium, Blood 8.7 mg/dL (8.5-10.1); Chloride, Blood 93 mmol/L (98-108); Creatinine, Blood 0.85 mg/dL (0.40-1.00); Glomerular Filtration Rate >60 (60-); Glucose, Blood 91 mg/dL (70-99); Potassium, Blood 3.5 mmol/L (3.5-5.5); Sodium, Blood 134 mmol/L (136-145)
--- NOTE | 2020-10-11 06:35 | NUR ---
SHIFT SUMMARY PATIENT ALERT AND ORIENTED. WAS MEDICATED NEEDED PER EMAR FOR PAIN AND ITCHING. NO COMPLAINTS OF SHORTNESS OF BREATH. NO ACUTE ISSUES NOTED OVERNIGHT. BED IN LOWEST POSITION WITH WHEELS LOCKED. CALL LIGHT WITHIN REACH. REPORT GIVEN TO ONCOMING RN.
--- NOTE | 2020-10-11 17:09 | NUR ---
PT AOX4 AND COOPERATIVE OF CARE. PT HAS HAD NO ACUTE CHANGES AND CONTUES TO WORK HARD TO HELP WITH HER TURNING IN BED. PT IS A LIFT TO CHAIR OR BACK TO BED. PT CALLS APPROPRIATELY. KNEE PAIN TREATED PER EMAR. NO DISTRESS NOTED AT THIS TIME. PT WAS GOING TO TAKE BATH, BUT THEN DECIDED SHE DID NOT WANT TO TAKE ONE TODAY PER PT. CALL LIGHT IS WITHIN REACH WILL CONTINUE TO MONITOR.
--- NOTE | 2020-10-11 18:39 | NUR ---
PT STATES HER ITCHING HAS BEEN GETTING WORSE. TRIED TO CALL DR DE SANTIAGO, NUMBER KEEP CALLING DR JOHNSON WHO STATED THERE HAS BEEN A PROBLEM WITH SOME OF THE CALLS. DR JOHNSON WAS KIND ENOUGH TO HEAR PT'S PROBLEM AND ORDERED CHANGES TO EMAR TO HELP ADDRESS ITCHING.
--- NOTE | 2020-10-11 18:46 | NUR ---
Spiritual care note: Provided supportive visit to Anais this afternoon. She is thrilled with her progress with PT--standing on her own yesterday. She was beaming when I walked into her room. Affirmed great progress and complimented her tenacity. I will remain available.
--- NOTE | 2020-10-12 04:28 | NUR ---
SHIFT SUMMARY A/OX4, USE OF LIFT FOR TRANSFERS. C/O BLE PAIN, MEDICATED PER EMAR X2. CONTINUES TO C/O ITCHING, PRN CREAM APPLIED. VSS, NO ACUTE CHANGES AT THIS TIME. AWAITING PLACEMENT FOR SAFE D/C. BED IN LOWEST POSITION WITH CALL LIGHT IN REACH. WILL CONTINUE TO MONITOR AND REPORT TO ONCOMING RN.
[2020-10-12 06:25] LABS: Anion Gap 4 mmol/L (6-16); Blood Urea Nitrogen 14 mg/dL (8-24); Bun/Creatinine Ratio 15.9 (12.0-20.0); CO2, Blood 38 mmol/L (21-32); Calcium, Blood 8.9 mg/dL (8.5-10.1); Chloride, Blood 92 mmol/L (98-108); Creatinine, Blood 0.88 mg/dL (0.40-1.00); Free Thyroxine 1.12 ng/dL (0.70-1.60); Glomerular Filtration Rate >60 (60-); Glucose, Blood 97 mg/dL (70-99); Potassium, Blood 3.2 mmol/L (3.5-5.5); Sodium, Blood 134 mmol/L (136-145)
--- NOTE | 2020-10-12 10:59 | NUR ---
PT IN THERAPY. MEDS GIVEN IN GYM. VERIFIED BY RPAFUL HAIDER RN
--- NOTE | 2020-10-12 16:51 | NUR ---
NO ACUTE CHANGES.
--- NOTE | 2020-10-12 17:57 | NUR ---
Spiritual care note: Supportive visit with Anais. We spoke at length about her concerns regarding going to rehab so far away from ehr family. Encouraged and counseled her about her progress so far. She is concerned she won't jones well with the staff at rehab. I focused on her stengths and likability, reminded her about her first week here, and stressed that she is not the same woman--but instead a woman who is strong, capable and very loveable. We have an easy rapport and I will continue to visit as schedule permits.
--- NOTE | 2020-10-12 19:48 | NUR ---
ASSUMED CARE. REPORTS SEVERE ITCHING THERE IS OPEN SCABS WHERE SHE HAS SCRATCHED ACROSS HER ARMS AND CHEST. GAVE HYDRALAZINE. VSS. REPORTS PAIN IS DOING BETTER BUT IT HAS BEEN BAD LATELY. N/T TO BLE. EDEMA HAS DECREASED IN LEGS. STILL HAS ROUGH LYMPHEDEMA SKIN. SKIN FOLDS WITH POWDER IN THEM. GOOD APPETITE. ON FLUID RESTRICTION. DENIES ANY NEEDS AT THIS TIME. WILL CONTINUE TO MONITOR AND TX. CALL LIGHT IN REACH, BED IN LOW POSITION.
[2020-10-13 05:33] LABS: Albumin, Blood 2.6 g/dL (3.4-5.0); Anion Gap 4 mmol/L (6-16); Blood Urea Nitrogen 17 mg/dL (8-24); Bun/Creatinine Ratio 20.5 (12.0-20.0); CO2, Blood 36 mmol/L (21-32); Calcium, Blood 9.1 mg/dL (8.5-10.1); Chloride, Blood 92 mmol/L (98-108); Creatinine, Blood 0.83 mg/dL (0.40-1.00); Glomerular Filtration Rate >60 (60-); Glucose, Blood 99 mg/dL (70-99); Phosphorus, Blood 4.4 mg/dL (2.5-4.9); Potassium, Blood 4.1 mmol/L (3.5-5.5); Sodium, Blood 132 mmol/L (136-145)
--- NOTE | 2020-10-13 06:03 | NUR ---
SHIFT SUMMARY: AOX3. MEDICATED FOR SEVERE ITCHING ALL OVER, OPEN SCABS ACROSS CHEST AND ARM. DID SCRATCH OPEN SMALL SECTION ON BOTTOM. GENERALIZED EDEMA NOTED. ELEVATED LEGS. VSS/AFEBRILE. MEDICATED FOR PAIN. FLUID RESTRICTION WITH IN LIMITS. LUNGS DIMINISHED, MAINTAINING SATS ON 3 L O2 NC. SKIN TEARS UNDER PANUS, POWDER APPLIED. SLEPT WELL. REPORTED STUFFY NOSE. ORDER FOR VICKS RECEIVED. NO OTHER CHANGES TO NOTE. CALL LIGHT IN REACH. BED IN LOW POSITION.
--- NOTE | 2020-10-13 16:58 | NUR ---
PATIENT IS ALERT AND ORIENTED AND COOPERATIVE WITH CARE. PATIENT WORKED WITH PT TODAY AND EXERCISED IN BED. THE PATIENT GOT OOB BY LIFT INTO A SHOWER CHAIR AND WAS ASSISTED WITH A SHOWER THIS AFTERNOON. THE PATIENT IS CURRENTLY IN THE RECLINER. C/O PAIN IN KNEES, HEADACHE AND BACK, MEDICATED PER EMAR. WILL CONTINUE TO MONITOR
--- NOTE | 2020-10-13 17:46 | NUR ---
Spiritual care note: Supportive visit provided. Anais and I had a good discussion today about her goals and hopes for the future. She is feeling optimistic and proud of her progress so far. She will certainly benefit from on-going counseling. [employer] services will remain available.
--- NOTE | 2020-10-14 04:56 | NUR ---
SHIFT SUMMARY- PT. MEDICATED FOR LEG PAIN AND ITCHINESS LAST NIGHT. APPEARED TO HAVE GOOD EFFECT. ASLEEP MOST OF THE NIGHT, NO APPARENT DISTRESS NOTED. GENERALIZED EDEMA, BLE ELEVATED ON PILLOWS. INCONT OF BLADDER, ATTENDS IN PLACE. REPOSITIONED FOR COMFORT. SMALL SKIN TEAR NOTED TO RT BOTTOM AREA. PT. STATED SCRATCHED HERSELF. ON 2L FLUID RESTRICTION, REACHED LIMIT FOR THE SHIFT. O2 @3L NC, SATS/VSS. NO ACUTE CHANGES TO CONDITION. CONTINUES TO WAIT ON PLACEMENT. CALL LIGHT WITHIN REACH AND BED IN LOW POSITION. WILL CONT TO MONITOR.
--- NOTE | 2020-10-14 17:27 | NUR ---
PATIENT IS ALERT AND ORIENTED AND COOPERATIVE WITH CARE. ON 3L O2 VIA NC. PATIENT WAS TRANSFERRED BY LIFT TO THE RECLINER WHERE SHE SAT FOR A FEW HOURS. THE PATIENT WORKED WITH PT TODAY. C/O LEG AND BACK PAIN, MEDICATED PER EMAR. WILL CONTINUE TO MONITOR
--- NOTE | 2020-10-14 21:04 | NUR ---
ASSUMED CARE. AOX3, GOOD SPIRIT. PAIN MEDICATION GIVEN AROUND 1800, STATES PAIN IS 5/10. NO ITCHING TODAY. SKIN IS IMPROVING, REDNESS AND SKIN TEARS HEALING. DRESSING TO BOTTOM. CHANGED ATTENDS. BLE IMPROVED, NO EDEMA, ELEVATED ON PILLOWS. PM MEDS GIVEN. NO CONCERNS TO NOTE. WILL CONTINUE TO MONITOR AND TX. CALL LIGHT IN REACH.
--- NOTE | 2020-10-15 05:47 | NUR ---
SHIFT SUMMARY: VSS/AFEBRILE. SKIN TEARS UNCHANGED. ENCOURAGED THE PATIENT TO STOP SCRATCHING SHE CONTINUES TO OPEN UP NEW AREA. SCABS ON CHEST AND ARMS. PAIN MANAGED WITH CURRENT MEDS. FLUID RESTRICTION MAINTAINED. EDEMA IMPROVED. NO OTHER CHANGES TO NOTE, CALL LIGHT IS IN REACH.
--- NOTE | 2020-10-15 11:00 | NUR ---
LANGE PT HAD TYLENOL W/AM MEDS. DECLINED OFFER FOR ICE PACK FOR COMFORT.
--- NOTE | 2020-10-15 18:29 | NUR ---
SUMMARY NO ACUTE CHANGES T/O SHIFT. PT REPORTS LANGE HAS RESOLVED. MEDICATED PER ORDERS FOR BLE PAIN. PT INCONTINENT OF URINE. HAD LARGE SOFT BM THIS EVENING. TOLERATING PO. ABLE TO TURN UNASSISTED IN BED. CALL LIGHT IN REACH.
--- NOTE | 2020-10-15 23:32 | NUR ---
ASSUMED CARE. STATES SHE HAS NOT FELT GOOD TODAY. HAS BEEN SLEEPING MOST OF THE DAY. STATES PAIN IS THE SAME. SHE IS JUST SO TIRED THAT SHE DID NOT EVEN DO HER EXERCISES. APPLIED CREAM TO HER BACK, CHANGED HER LINEN DUE TO WETNESS, CHAGNED ATTENDS. SKIN CARE PROVIDED. PERICARE PROVIDED. NO OTHER NEEDS TO NOTE. CALL LIGHT IN REACH.
--- NOTE | 2020-10-16 04:53 | NUR ---
SHIFT SUMMARY: AOX3, FEELING MORE TIRED T/O THE DAY. REPORTS SHE DID NOT DO HER EXERCISES EXCEPT HER ANKLES. VS WNL, AFEBRILE. PAIN THE SAME. MORE ITCHING NOTED TONIGHT. USED HYDROCORTISONE CREAM. LUNGS CLEAR/DIMINISHED IN BASES ON 3 LITERS. NO NEW SKIN BREAKDOWN NOTED. NO ACUTE CHANGES. WILL REPORT TO DAYSHIFT. CALL LIGHT REMAINS IN REACH.
--- NOTE | 2020-10-16 18:07 | NUR ---
SHIFT SUMMARY: NO ACUTE EVENTS. PT ABLE TO SHOWER WITH ASSISTANCE TODAY; SHE IS VERY PLEASED WITH HER PROGRESS IN GAINING STRENGTH. C/O CHRONIC KNEE PAIN; MEDICATED PER EMAR WITH ADEQUATE RELIEF. USING OXYGEN @ 3 L/MIN NC, HER BASELINE. INCONT OF BLADDER, ATTENDS IN PLACE. NO BM TODAY. COMPLIANT WITH 2 L FLUID RESTRICTION. PLAN IS PLACEMENT.
[2020-10-17 05:10] LABS: BASOPHILS ABSOLUTE AUTO 0.09 K/mm3 (0.00-0.23); BASOPHILS PERCENT AUTO 1 % (0-2); EOSINOPHILS ABSOLUTE AUTO 1.26 K/mm3 (0.00-0.68); EOSINOPHILS PERCENT AUTO 20 % (0-6); Hematocrit 33.1 % (33.0-51.0); IMMATURE GRAN ABSOLUTE AUTO 0.01 K/mm3 (0.00-0.10); IMMATURE GRAN PERCENT AUTO 0 % (0-1); LYMPHOCYTES ABSOLUTE AUTO 2.11 K/mm3 (0.84-5.20); LYMPHOCYTES PERCENT AUTO 33 % (21-46); MONOCYTES ABSOLUTE AUTO 0.99 K/mm3 (0.16-1.47); MONOCYTES PERCENT AUTO 15 % (4-13); Mean Corpuscular HGB 31.5 pg (26.0-34.0); Mean Corpuscular HGB Conc 33.2 g/dL (31.5-36.5); Mean Corpuscular Volume 95 fL (80-100); Mean Platelet Volume 9.9 fL (9.1-12.4); NEUTROPHILS ABSOLUTE AUTO 1.97 K/mm3 (1.96-9.15); NEUTROPHILS PERCENT AUTO 31 % (41-73); Platelet Count 220 K/mm3 (150-400); RDW Coefficient Variation 14.1 % (11.7-14.2); RDW Standard Deviation 49.3 fL (35.1-46.3); Red Blood Cell Count 3.49 M/mm3 (3.80-5.20); White Blood Cell Count 6.43 K/mm3 (4.00-11.30)
[2020-10-17 05:25] LABS: Albumin, Blood 2.8 g/dL (3.4-5.0); Anion Gap 4 mmol/L (6-16); Blood Urea Nitrogen 17 mg/dL (8-24); Bun/Creatinine Ratio 18.5 (12.0-20.0); CO2, Blood 37 mmol/L (21-32); Calcium, Blood 9.4 mg/dL (8.5-10.1); Chloride, Blood 94 mmol/L (98-108); Creatinine, Blood 0.92 mg/dL (0.40-1.00); Glomerular Filtration Rate >60 (60-); Glucose, Blood 95 mg/dL (70-99); Phosphorus, Blood 4.1 mg/dL (2.5-4.9); Potassium, Blood 3.6 mmol/L (3.5-5.5); Sodium, Blood 135 mmol/L (136-145)
--- NOTE | 2020-10-17 06:32 | NUR ---
SHIFT SUMMARY: VSS/AFEBRILE. NO ACUTE CHAGNES OR CONCERNS TO NOTE. SHE DID HER USUAL ROUTINE OF SLEEP A COUPLE HOURS, WAKE UP FOR PAIN MEDICATIONS AND A SNACK, THEN BACK TO SLEEP TILL MORNING AND PAIN MEDS AND EXCEPT FOR INCONTIENT CHANGES. NO CHANGES IN PAIN MANAGEMENT. CALL LIGHT IS IN REACH.
[2020-10-17 09:52] LABS: Magnesium, Blood 1.5 mg/dL (1.6-2.4); Phosphorus, Blood 4.2 mg/dL (2.5-4.9)
--- NOTE | 2020-10-17 17:28 | NUR ---
Spiritual care note: Supportive visit to Anais who says she is tired today and in pain. Liquor Inspector and encouragement well recieved. I will continue to follow.
--- NOTE | 2020-10-18 05:24 | NUR ---
SHIFT SUMMARY: VSS/AFEBRILE. PAIN AVERAGE IS 7/10 AFTER MEDS THIS SHIFT. WATCHS THE CLOCK FOR PAIN MEDS AND NOW HER MUSCLE RELAXER. STILL NO CHANGE IN PAIN I HAVE NOTICED DESPITE THE CREAMS AND MEDS. ENCOURAGED MOVEMENT, AND EXERCISE. NO OTHER CHANGES TO NOTE. CALL LIGHT IS IN REACH.
[2020-10-18 05:34] LABS: Albumin, Blood 2.6 g/dL (3.4-5.0); Anion Gap 5 mmol/L (6-16); Blood Urea Nitrogen 20 mg/dL (8-24); Bun/Creatinine Ratio 21.1 (12.0-20.0); CO2, Blood 37 mmol/L (21-32); Chloride, Blood 92 mmol/L (98-108); Creatinine, Blood 0.95 mg/dL (0.40-1.00); Glomerular Filtration Rate >60 (60-); Glucose, Blood 122 mg/dL (70-99); Magnesium, Blood 1.7 mg/dL (1.6-2.4); Phosphorus, Blood 4.3 mg/dL (2.5-4.9); Potassium, Blood 3.2 mmol/L (3.5-5.5); Sodium, Blood 134 mmol/L (136-145)
[2020-10-19 05:24] LABS: Albumin, Blood 2.7 g/dL (3.4-5.0); Anion Gap 5 mmol/L (6-16); Blood Urea Nitrogen 21 mg/dL (8-24); Bun/Creatinine Ratio 24.2 (12.0-20.0); CO2, Blood 37 mmol/L (21-32); Calcium, Blood 9.1 mg/dL (8.5-10.1); Chloride, Blood 91 mmol/L (98-108); Creatinine, Blood 0.87 mg/dL (0.40-1.00); Glomerular Filtration Rate >60 (60-); Glucose, Blood 110 mg/dL (70-99); Magnesium, Blood 1.6 mg/dL (1.6-2.4); Phosphorus, Blood 4.5 mg/dL (2.5-4.9); Potassium, Blood 3.3 mmol/L (3.5-5.5); Sodium, Blood 133 mmol/L (136-145)
--- NOTE | 2020-10-19 05:56 | NUR ---
SHIFT SUMMARY- PT. MEDICATED MULTIPLE TIMES T/O THE NIGHT FOR YOLANDA KNEE AND LEG PAIN. ALSO C/O BLE SPASMS, MUSCLE RELAXER GIVEN PER ORDER WITH GOOD EFFECT. PT. RESTED QUIETLY DURING THE NIGHT, NO APPARENT DISTRESS NOTED. VSS. CALL LIGHT WITHIN REACH AND BED IN LOW POSITION. WILL CONT TO MONITOR.
--- NOTE | 2020-10-19 19:44 | NUR ---
SHIFT SUMMARY NO ACUTE CHANGES THIS SHIFT. PT TREATED PER EMR FOR PAIN AND LEG SPASMS. FACILITY ACCEPTED THE PATIENT BUT NO BED AVAILABLE YET. PT AT THE TOP OF THE FACILITY'S LIST FOR PLACEMENT. VSS.
--- NOTE | 2020-10-20 04:09 | NUR ---
COMPLIANCE ATTORNEY SUMMARY PT A/O X4. MEDICATED FOR BILATERAL LEG PAIN OVERNIGHT. PT DENIES NAUSEA, SOB. CONTINUES TO BE ON 3L O2 VIA NC MAINTAINING GOOD SATS. HEATING PAD IN PLACE ON BILATERAL KNEE TO HELP WITH PAIN WELL, REPOSITIONOING PROVIDED. PT ABLE TO MAKE NEEDS KNOWN. VSS, NO ACUTE CHANGES. CALL LIGHT WITHIN REACH, WILL CONTINUE TO MONITOR.
[2020-10-20 05:38] LABS: Albumin, Blood 2.7 g/dL (3.4-5.0); Anion Gap 4 mmol/L (6-16); Blood Urea Nitrogen 22 mg/dL (8-24); Bun/Creatinine Ratio 25.5 (12.0-20.0); CO2, Blood 38 mmol/L (21-32); Calcium, Blood 8.9 mg/dL (8.5-10.1); Chloride, Blood 89 mmol/L (98-108); Creatinine, Blood 0.86 mg/dL (0.40-1.00); Glomerular Filtration Rate >60 (60-); Glucose, Blood 118 mg/dL (70-99); Magnesium, Blood 1.6 mg/dL (1.6-2.4); Phosphorus, Blood 4.2 mg/dL (2.5-4.9); Sodium, Blood 131 mmol/L (136-145)
--- NOTE | 2020-10-20 18:17 | NUR ---
PATIENT IS ALERT AND ORIENTED AND COOPERATIVE WITH CARE. SHE CALLS APPROPRIATELY. PATIENT IS ON THE BEDPAN AT THIS TIME. C/O KNEE PAIN, MEDICATED PER EMAR. REFUSED TO GET OOB TODAY. WILL CONTINUE TO MONITOR
--- NOTE | 2020-10-20 18:50 | NUR ---
Spiritual care note: Anais was rather sleepy and lethargic when I saw her today. She tells me she is on muscle relaxers for her knee spasms and these have diminished her drive. I provided prayer and encouragement to keep trying. I will remain available.
--- NOTE | 2020-10-21 03:13 | NUR ---
BUSINESS SUPPORT MANAGER SUMMARY PT A/O X4. MEDICATED FOR KNEE PAIN OVERNIGHT. CONTINUES TO BE ON 3L O2 VIA NC MAINTAINING GOOD SATS. ABLE TO MAKE NEEDS KNOWN. INCONTIENT TO URINE, PURE WICK AND ATTENDS IN PLACE. REPOSITIONING PROVIDED. VSS, NO ACUTE CHANGES. CALL LIGHT WITHIN REACH, WILL CONTINUE TO MONITOR.
[2020-10-21 05:33] LABS: Albumin, Blood 2.6 g/dL (3.4-5.0); Anion Gap 3 mmol/L (6-16); Blood Urea Nitrogen 23 mg/dL (8-24); Bun/Creatinine Ratio 26.2 (12.0-20.0); CO2, Blood 39 mmol/L (21-32); Calcium, Blood 8.8 mg/dL (8.5-10.1); Chloride, Blood 91 mmol/L (98-108); Creatinine, Blood 0.88 mg/dL (0.40-1.00); Glomerular Filtration Rate >60 (60-); Glucose, Blood 112 mg/dL (70-99); Magnesium, Blood 1.7 mg/dL (1.6-2.4); Phosphorus, Blood 4.1 mg/dL (2.5-4.9); Potassium, Blood 3.2 mmol/L (3.5-5.5); Sodium, Blood 133 mmol/L (136-145)
--- NOTE | 2020-10-21 18:52 | NUR ---
SHIFT SUMMARY PT A/O X4 AND ABLE TO MAKE NEEDS KNOWN. NO ACUTE CHANGES THIS SHIFT. PT WORKED WITH PHYSICAL THERAPY AND WAS ABLE TO STAND X1 WITH PHYSICAL THERAPY. MEDICATED FOR PAIN PER EMR ORDERS. VSS.
--- NOTE | 2020-10-22 04:36 | NUR ---
SHIFT SUMMARY NO ACUTE CHANGES THIS SHIFT, MEDICATED AT BEDTIME FOR PAIN (BL KNEES), NO OTHER C/O ANY KIND, SLEPT T/O THE NIGHT & SLEEPING AT THIS TIME, CALL LIGHT IN REACH, WILL CONT TO MONITOR UNTIL REPORT GIVEN TO DAY RN.
[2020-10-22 09:01] LABS: Magnesium, Blood 1.6 mg/dL (1.6-2.4)
[2020-10-22 09:02] LABS: Anion Gap 5 mmol/L (6-16); Blood Urea Nitrogen 22 mg/dL (8-24); Bun/Creatinine Ratio 25.3 (12.0-20.0); CO2, Blood 37 mmol/L (21-32); Calcium, Blood 9.5 mg/dL (8.5-10.1); Chloride, Blood 91 mmol/L (98-108); Creatinine, Blood 0.87 mg/dL (0.40-1.00); Glomerular Filtration Rate >60 (60-); Glucose, Blood 94 mg/dL (70-99); Phosphorus, Blood 4.2 mg/dL (2.5-4.9); Potassium, Blood 3.2 mmol/L (3.5-5.5); Sodium, Blood 133 mmol/L (136-145)
--- NOTE | 2020-10-22 18:33 | NUR ---
SHIFT SUMMARY NO ACUTE CHANGES THIS SHIFT. PT A/O X4; PLEASANT AND COOPERATIVE WITH CARE. WORKED WITH P.T. MEDICATED FOR PAIN PER EMR DUE TO CONSISTENT C/O 9-10 PAIN IN THE KNEES. VSS. WILL REPORT TO VERONICA TAYLOR.
--- NOTE | 2020-10-23 05:46 | NUR ---
SHIFT SUMMARY NO ACUTE CHANGES THIS SHIFT, MEDICATED PER MAR FOR PAIN, NO OTHER C/O ANY KIND, SLEPT T/O THE NIGHT, CALL LIGHT IN REACH, WILL CONT TO MONITOR UNTIL REPORT GIVEN TO DAY RN.
[2020-10-23 08:38] LABS: Anion Gap 4 mmol/L (6-16); Blood Urea Nitrogen 24 mg/dL (8-24); Bun/Creatinine Ratio 26.8 (12.0-20.0); CO2, Blood 39 mmol/L (21-32); Calcium, Blood 9.3 mg/dL (8.5-10.1); Chloride, Blood 91 mmol/L (98-108); Glomerular Filtration Rate >60 (60-); Glucose, Blood 100 mg/dL (70-99); Magnesium, Blood 1.5 mg/dL (1.6-2.4); Phosphorus, Blood 4.3 mg/dL (2.5-4.9); Potassium, Blood 3.2 mmol/L (3.5-5.5); Sodium, Blood 134 mmol/L (136-145)
--- NOTE | 2020-10-23 18:24 | NUR ---
SHIFT SUMMARY PATIENT ALERT AND ORIENTED THIS SHIFT. PATIENT ABLE TO MAKE NEEDS KNOWN. PATIENT USES THE CALL LIGHT APPROPRIATELY. PATIENT MEDICATED THROUGHOUT THIS SHIFT FOR PAIN WITH PRN AND SCHEDULED MEDICATIONS. NO ACUTE CHANGES THIS SHIFT. PATIENT REMAINS ON 3L O2 VIA NC. PATIENT CURRENTLY SITTING UP IN BED EATING DINNER.
[2020-10-24 05:28] LABS: Albumin, Blood 2.7 g/dL (3.4-5.0); Anion Gap 4 mmol/L (6-16); Blood Urea Nitrogen 27 mg/dL (8-24); Bun/Creatinine Ratio 25.7 (12.0-20.0); CO2, Blood 35 mmol/L (21-32); Calcium, Blood 9.2 mg/dL (8.5-10.1); Chloride, Blood 95 mmol/L (98-108); Creatinine, Blood 1.05 mg/dL (0.40-1.00); Glomerular Filtration Rate 58 (60-); Glucose, Blood 121 mg/dL (70-99); Magnesium, Blood 1.8 mg/dL (1.6-2.4); Phosphorus, Blood 4.3 mg/dL (2.5-4.9); Potassium, Blood 3.6 mmol/L (3.5-5.5); Sodium, Blood 134 mmol/L (136-145)
--- NOTE | 2020-10-24 06:58 | NUR ---
SHIFT SUMMARY PT IS A 55 Y/O FEMALE, ADMITTED FOR [facility] AND CURRENTLY AWAITING PLACEMENT. SHE IS A&O X 4, BEDREST LIFT PT. SHE WAS MEDICATED FOR CHRONIC BLE PAIN WITH MUSCLE RELAXERS AND PRN OXYCODONE. NO C/O NAUSEA OR SOB. VITAL SIGNS STABLE. NO ACUTE CHANGES IN PT CONDITION NOTED. WILL CONTINUE TO MONITOR AND TREAT PER EMAR UNTIL HAND OFF TO DAY SHIFT RN.
--- NOTE | 2020-10-24 17:02 | NUR ---
SHIFT SUMMARY PATIENT IS ALERT AND ORIENTED THIS SHIFT. PATIENT UP TO RECLINER TO WORK WITH PT THIS AM. PATIENT BACK TO BED AFTER LUNCH WHERE SHE HAS REMAINED. PATIENT MEDICATED FOR PAIN PER EMAR THROUGHOUT THIS SHIFT. NO ACUTE CHANGES THIS SHIFT. PATIENT IS CURRENTLY LYING IN BED RESTING.
--- NOTE | 2020-10-24 19:00 | NUR ---
Spiritual care note: Anais is pleased that she was able to stand on her own again today. I provided gentle treatment counselor and prayer to good effect. She is actively grieving the of her mom 2 months ago. Her memorial is Saturday and the upcoming event has caused renewed grief with the loss. This is quite appropriate. I will continue to follow.
--- NOTE | 2020-10-25 04:08 | NUR ---
SHIFT SUMMARY NO ACUTE CHANGES THIS SHIFT. AOX4. VSS. SPO2 >90% ON 3L O2. REPORTS 10/10 PAIN IN BILAT KNEES, MEDICATED c 15MG OXYCODONE 1X & 400MG SKELAXIN 1X, PT ABLE TO REST WELL T/O NIGHT. REPORTS ITCHING, GAVE ATARAX 1X. IV WAS RED, WARM, PAINFUL-REMOVED & GOT NO IV ACCESS ORDER FROM DR RIVERA SINCE NO IV MEDS BEING GIVEN. AWAITING PLACEMENT. CALL LIGHT IN REACH. WCTM.
[2020-10-25 05:57] LABS: Albumin, Blood 2.8 g/dL (3.4-5.0); Anion Gap 7 mmol/L (6-16); Blood Urea Nitrogen 26 mg/dL (8-24); Bun/Creatinine Ratio 28.9 (12.0-20.0); CO2, Blood 33 mmol/L (21-32); Calcium, Blood 8.6 mg/dL (8.5-10.1); Chloride, Blood 94 mmol/L (98-108); Glomerular Filtration Rate >60 (60-); Glucose, Blood 102 mg/dL (70-99); Magnesium, Blood 1.8 mg/dL (1.6-2.4); Potassium, Blood 3.9 mmol/L (3.5-5.5); Sodium, Blood 134 mmol/L (136-145)
[2020-10-25 06:48] LABS: BASOPHILS ABSOLUTE AUTO 0.08 K/mm3 (0.00-0.23); BASOPHILS PERCENT AUTO 1 % (0-2); EOSINOPHILS ABSOLUTE AUTO 1.15 K/mm3 (0.00-0.68); EOSINOPHILS PERCENT AUTO 17 % (0-6); Hemoglobin 11.8 g/dL (11.5-16.0); IMMATURE GRAN ABSOLUTE AUTO 0.02 K/mm3 (0.00-0.10); IMMATURE GRAN PERCENT AUTO 0 % (0-1); LYMPHOCYTES ABSOLUTE AUTO 1.98 K/mm3 (0.84-5.20); LYMPHOCYTES PERCENT AUTO 29 % (21-46); MONOCYTES PERCENT AUTO 15 % (4-13); Mean Corpuscular HGB 31.1 pg (26.0-34.0); Mean Corpuscular HGB Conc 33.7 g/dL (31.5-36.5); Mean Corpuscular Volume 92 fL (80-100); Mean Platelet Volume 9.8 fL (9.1-12.4); NEUTROPHILS ABSOLUTE AUTO 2.57 K/mm3 (1.96-9.15); NEUTROPHILS PERCENT AUTO 38 % (41-73); Platelet Count 180 K/mm3 (150-400); RDW Coefficient Variation 13.5 % (11.7-14.2); RDW Standard Deviation 46.5 fL (35.1-46.3); Red Blood Cell Count 3.79 M/mm3 (3.80-5.20)
--- NOTE | 2020-10-25 16:15 | NUR ---
SHIFT SUMMARY PT UP TO SHOWER CHAIR USING THE [facility] LIFT AND WAS GIVEN A SHOWER TODAY INSTEAD OF PHYSICAL THERAPY. OT WORKED ON BED EXERCISES TODAY. SEE EMAR FOR PAIN MED ADMINISTRATION. NO ACUTE CHANGES IN ASSESSMENT AT THIS TIME. VS REVIEWED. PT RESTING IN BED. CALL LIGHT IN REACH.
--- NOTE | 2020-10-26 05:31 | NUR ---
SHIFT SUMMARY NO ACUTE CHANGES THIS SHIFT. AOX4. VSS. SLEPT SOUNDLY T/O NIGHT AFTER RECIEVING MUSCLE RELAXER FOR KNEE DISCOMFORT. THIS AM PT REPORTS PAIN 02/12, MEDICATED c OXYCODONE 1X. AWAITING PLACEMENT. CALL LIGHT IN REACH & PT ABLE TO MAKE NEEDS KNOWN. WCTM.
--- NOTE | 2020-10-26 17:40 | NUR ---
SUMMARY PT RESTING QUIELTY IN BED, WAKES EASILY, MED PER EMAR FOR PAIN, PT UP IN THE CHAIR TODAY, PT WENT TO THE PT GYM AND WAS ABLE TO STAND WITH THERAPY, PT ALSO WORKED WITH OT IN THE AFTERNOON, PT HAS BEEN PLEASANT AND COOPERATIVE WITH CARE, VSS, WILL CONTINUE TO MONITOR
--- NOTE | 2020-10-27 06:18 | NUR ---
SHIFT SUMMARY PT IS A 55 Y/O FEMALE, ADMITTED FOR [facility] AND CURRENTLY AWAITING PLACEMENT IN A FACILITY IN [place]. SHE IS A&O X 4, BEDREST AND LIFT PT. SHE WAS MEDICATED DURING THE NIGHT FOR CHRONIC PAIN WITH PRN OXYCODONE AND MUSCLE RELAXERS. NO C/O NAUSEA OR SOB. VITAL SIGNS STABLE. PT SLEPT WELL THROUGH THE NIGHT. NO ACUTE CHANGES IN PT CONDITION NOTED DURING THE NIGHT. WILL CONTINUE TO MONITOR AND TREAT PER EMAR UNTIL HAND OFF TO DAY SHIFT RN.
--- NOTE | 2020-10-27 17:14 | NUR ---
SUMMARY PT RESTING QUIETLY IN BED, WAKES EASILY, MED PER EMAR FOR PAIN, UP IN THE CHAIR TODAY, WORKED WITH THERAPY IN THE GYM AND IN THE ROOM, PT ENZO WELL, FAMILY IN TO VISIT TODAY, PLEASANT AND COOPERATIVE WITH CARE, VSS, WILL CONTINUE TO MONITOR
--- NOTE | 2020-10-27 17:22 | NUR ---
Spiritual care note: Anais was tired today having just worked with PT and standing for a few seconds. She is pleased with her progress and says she is determined to continue to fight to get better. Her mother's memorial is tomorrow. Berevaement genetic counselor was offer and well recieved. Grief education provided to good effect. Prayer for family at Anais's request. Ambulatory Analyst services will remain available.
--- NOTE | 2020-10-28 06:08 | NUR ---
SHIFT SUMMARY PT IS A 55 Y/O FEMALE, ADMITTED FOR [facility] AND CURRENTLY AWAITING PLACEMENT IN [place]. SHE IS A&O X 4, BEDREST. SHE WAS MEDICATED FOR CHRONIC BLE PAIN WITH PRN OXYCODONE. NO C/O NAUSEA OR SOB. VITAL SIGNS STABLE. NO ACUTE CHANGES IN PT CONDITION NOTED DURING THE NIGHT. WILL CONTINUE TO MONITOR AND TREAT PER EMAR UNTIL HAND OFF TO DAY SHIFT RN.
--- NOTE | 2020-10-28 17:56 | NUR ---
SHIFT SUMMARY PATIENT ALERT AND ORIENTED THIS SHIFT. PATIENT REMAINS ON BED REST. PATIENT TURNS WELL WITH MINIMAL ASSISTANCE IN BED. PATIENT MEDICATED THROGHOUT THIS SHIFT FOR PAIN. PATIENT WORKED WITH PT THIS AM. PATIENT'S SON IN THE ROOM VISITING THIS AFTERNOON. NO ACUTE CHANGES THIS SHIFT. PATIENT IS CURRENTLY SITTING UP IN BED WATCHING TELEVISION.
--- NOTE | 2020-10-28 22:22 | NUR ---
ASSUMED CARE. AOX3, VERY TIRED FALLING ASLEEP. REPOSITIONED IN BED. MEDS GIVEN. EDEMA SCATTERED T/O. SKIN STILL HAS RASHES AND SKIN TEARS IN FOLDS. POWDER APPLIED. DENIES ANY CONCERNS. WILL CONTINUE TO MONITOR. CALL LIGHT IN REACH.
--- NOTE | 2020-10-29 06:03 | NUR ---
SHIFT SUMMARY: VS WNL, MEDICATED FOR PAIN X2, SLEPT T/O THE NIGHT. VERY FATIQUED AND TIRED LAST NIGHT. DENIED ANY ACUTE CHANGES OR CONCERNS. CALL LIGHT REMAINED IN REACH.
--- NOTE | 2020-10-29 18:05 | NUR ---
ALERT. ORIENTED. MEDICATED FOR PAIN T/O SHIFT. BED REST. PLEASANT. COOPERATIVE. NO ACUTE CHANGES. AWAITING PLACEMENT. TM
--- NOTE | 2020-10-30 06:39 | NUR ---
SHIFT SUMMARY PATIENT ALERT AND ORIENTED. WAS MEDICATED PER EMAR FOR PAIN AND ITCHING. NO COMPLAINTS OF CHEST PAIN OR SHORTNESS OF BREATH. NO ACUTE ISSUES NOTED OVERNIGHT. BED IN LOWEST POSITION WITH WHEELS LOCKED AND ALARM ON. CALL LIGHT WITHIN REACH. REPORT GIVEN TO ONCOMING RN.
--- NOTE | 2020-10-30 17:49 | NUR ---
ALERT. ORIENTED. NO ACUTE CHANGES. UNLABORED RESPIRATIONS. AWAITING PLACEMENT. WCTM
--- NOTE | 2020-10-31 06:50 | NUR ---
SHIFT SUMMARY PATIENT ALERT AND ORIENTED. WAS MEDICATED PER EMAR FOR PAIN AND ITCHING. SLEPT WELL OVERNIGHT. BED IN LOWEST POSITION WITH WHEELS LOCKED. CALL LIGHT WITHIN REACH. REPORT GIVEN TO ONCOMING RN.
--- NOTE | 2020-10-31 16:24 | NUR ---
1400 PT REQUEST HOLD MD2U AT THIS TIME.
--- NOTE | 2020-10-31 18:53 | NUR ---
Spiritual care note: Anais spoke at length about her mother's memorial on Saturday. One of her children recorded the service on his phone and played it for her later that day. Anais is obviously still actively grieving this loss. She responds well to gentle queen's counsel and prayer. I will remain available.
--- NOTE | 2020-10-31 19:47 | NUR ---
PT PLEASANT TODAY. STATES PAIN IS GOOD AT A 7. WE TRYING TO ACHEIVE. PT STATES DID GET UP AND STAND WITH PT TODAY. STOOD FOR 26 SECONDS. ENCOURAGED HER MUCH TO KEEP MOVING LEGS. KNEE BENDS. FOOT PEDAL PUSHES. ARM EXERCIZES. WHATEVER WILL CAUSE MOBILITY TO IMPROVE. PT STATES TRYING. NO OTHER CONCERNS NOTED TODAY. DID HAVE BM TODAY. BED IN LOW POSITION, CALL LITE IN REACH, CALLS APPROP
--- NOTE | 2020-11-01 04:18 | NUR ---
SHIFT SUMMARY NO ACUTE CHANGES THIS SHIFT, MEDICATED PER MAR FOR PAIN/ITCHING, NO OTHER C/O ANY KIND, REPOS Q2, FREQUENT ATTEND CHANGES, SLEEPING AT THIS TIME, CALL LIGHT IN REACH, WILL CONT TO MONITOR UNTIL REPORT GIVEN TO DAY RN.
[2020-11-01 08:08] LABS: Hematocrit 34.9 % (33.0-51.0); Hemoglobin 11.6 g/dL (11.5-16.0)
[2020-11-01 08:30] LABS: Anion Gap 5 mmol/L (6-16); Blood Urea Nitrogen 24 mg/dL (8-24); Bun/Creatinine Ratio 24.1 (12.0-20.0); CO2, Blood 36 mmol/L (21-32); Calcium, Blood 9.6 mg/dL (8.5-10.1); Chloride, Blood 96 mmol/L (98-108); Creatinine, Blood 0.99 mg/dL (0.40-1.00); Glomerular Filtration Rate >60 (60-); Glucose, Blood 99 mg/dL (70-99); Potassium, Blood 3.4 mmol/L (3.5-5.5); Sodium, Blood 137 mmol/L (136-145)
--- NOTE | 2020-11-01 17:58 | NUR ---
Spiritual care note: Supportive visit to Anais this afternoon. She is quite proud of the fact that she "worked out twice today" and stood on her own for longest length of time yet. She was sleepy therefore visit kept short. Encouraged and provided bereavement vocational rehabilitation counselor to good effect. I will continue to see Anais as case-load permits.
--- NOTE | 2020-11-01 18:31 | NUR ---
PT PLEASANT TOOAY. PAIN MANAGED WITH AVAIL MEDS. DID MANAGE TO STAND WITH PT TODAY. NO NEW CONCERNS NOTED. BED IN LOW POSITION, CALL LITE IN REACH, CALLS APPROP
--- NOTE | 2020-11-02 03:15 | NUR ---
PUTAWAY DRIVER SUMMARY HAS BEEN CHANGED A FEW TIMES FOR INCONTINENCE OF URINE. REPOSITIONED FOR COMFORT. MEDICATED FOR PAIN, MUSCLE ACHES AND ITCHING. RESTING QUIETLY AT THIS TIME. CALL LIGHT IN REACH
--- NOTE | 2020-11-02 17:11 | NUR ---
SHIFT SUMMARY PT ALERT ORIENTED X3-4, PT C/O PAIN ON HER BILAT KNEES; MEDICATED FOR PAIN AND MUSCLE SPASM. PT DENIES CP OR SOB; SATS ABOVE 90S. LOW BP THIS AFTERNOON AND MIDODRINE IS GIVEN. STILL AWAITS FOR PLACEMENT. BED IS IN THE LOWEST POSITION AND CALL LIGHT WITHIN REACH
--- NOTE | 2020-11-02 17:37 | NUR ---
Spiritual care note: Provided supportive visit to Anais. Her dtr was visiting, so my visit was kept short. Anais reports hope for the future and willingness to keep fighting to get stronger.
--- NOTE | 2020-11-03 08:31 | NUR ---
SHIFT SUMMARY: PATIENT IS A&OX4, REPORTING CHRONIC KNEE PAIN 12/13. PRN ATARAX AND OXYCODONE WITH GIVEN WITH GOOD EFFECT. PRN MUSCLE RELAXER WAS ALSO GIVEN WITH GOOD EFFECT. NO ACUTE CHANGES.
--- NOTE | 2020-11-03 19:18 | NUR ---
ALERT. ORIENTED. OOB TO CHAIR X ONCE TODAY. WORKED WITH P.T.CALLS APPROPRIATELY. NIGHT RN AND CHARGE NOTIFIED PATIENT HAS APPOINTMENT TOMORROW WITH [facility] [employer] AT 1PM . UNLABORED RESPIRATIONS. REPORT TO NIGHT RN
--- NOTE | 2020-11-04 03:07 | NUR ---
SHIFT SUMMARY PATIENT HAD NO ACUTE CHANGES OBSERVED. AXOX 3 IN LIFT ROOM-BEDBOUND. ON 3L O2 NC BASELINE. FLUID RESTRICTION 2,000 mL. NO IV ACCESS. VSS/AFEBRILE. MEETING WITH SOCIAL SECURITY FOR 13:00 TODAY. OXYCODONE 15 MG GIVEN FOR KNEE PAIN. MUSCLE RELAXER PER EMAR WITH GOOD EFFECT. VSS/AFEBRILE. TAKES MEDICATION WHOLE WITH PUDDING A FEW AT A TIME. CALL LIGHT IN REACH. BED IN LOWEST POSITION. WILL CONTINUE TO MONITOR UNTIL DAY SHIFT NURSE ASSUMES CARE.
[2020-11-04 05:48] LABS: Anion Gap 4 mmol/L (6-16); Blood Urea Nitrogen 29 mg/dL (8-24); Bun/Creatinine Ratio 30.1 (12.0-20.0); CO2, Blood 35 mmol/L (21-32); Calcium, Blood 9.1 mg/dL (8.5-10.1); Chloride, Blood 96 mmol/L (98-108); Creatinine, Blood 0.96 mg/dL (0.40-1.00); Glomerular Filtration Rate >60 (60-); Glucose, Blood 99 mg/dL (70-99); Magnesium, Blood 1.9 mg/dL (1.6-2.4); Potassium, Blood 3.5 mmol/L (3.5-5.5); Sodium, Blood 135 mmol/L (136-145)
--- NOTE | 2020-11-04 12:01 | NUR ---
TRIED TO GET Pt UP TO HER CHAIR, LIKE THERAPY RECOMMENDED, SHE REFUSED WITH THE NURSE IN THE RM WELL, Pt STATED SHE WAS NOT FEELING GOOD ENOUGH TO GET OUT OF BED TODAY
--- NOTE | 2020-11-04 16:04 | NUR ---
PATIENT REMAINS MEDICALLY STABLE WITH NO ACUTE CHANGES TO REPORT AT THIS TIME. SKIN APPEARS TO REMAIN INTACT. CALL LIGHT WITHIN REACH.
--- NOTE | 2020-11-05 06:38 | NUR ---
SHIFT SUMMARY PT IS A 55 Y/O FEMALE, ORIGINALLY ADMITTED FOR [facility] AND CURRENTLY AWAITING PLACEMENT. SHE IS A&O X 4, PLEASANT AND COOPERATIVE WITH STAFF. BEDREST LIFT PATIENT. PT WAS MEDICATED FOR CHRONIC KNEE PAIN WITH PRN OXYCODONE AND SKELAXIN. NO C/O NAUSEA OR SOB. PT IS ON 3L OF O2 VIA NC, WHICH IS HER NORMAL HOME DOSE. VITAL SIGNS STABLE. NO ACUTE CHANGES IN PT CONDITION NOTED DURING THE NIGHT. WILL CONTINUE TO MONITOR AND TREAT PER EMAR UNTIL HAND OFF TO DAY SHIFT RN.
--- NOTE | 2020-11-05 16:58 | NUR ---
PT CONTINUES TO BE PLEASANT TALKATIVE, CONTINUES TO HOLD PAIN 8-7 AT ALL TIMES. PT TALKS ON PHONE, WATCHES TV, SLEEPS T/O DAY. DID STATE THAT FEELS NOT HAD BM RECENTLY. REQUESTD MEDS. MOM GIVEN. REF MIRALAX . NO NEW CONERNS NOTED. BED IN LOW POSITION, CALL LITE IN REACH, CALLS APPROP
[2020-11-06 05:28] LABS: Anion Gap 2 mmol/L (6-16); Blood Urea Nitrogen 26 mg/dL (8-24); CO2, Blood 38 mmol/L (21-32); Calcium, Blood 9.4 mg/dL (8.5-10.1); Chloride, Blood 97 mmol/L (98-108); Creatinine, Blood 0.93 mg/dL (0.40-1.00); Glomerular Filtration Rate >60 (60-); Glucose, Blood 109 mg/dL (70-99); Potassium, Blood 3.6 mmol/L (3.5-5.5); Sodium, Blood 137 mmol/L (136-145)
--- NOTE | 2020-11-06 07:13 | NUR ---
SHIFT SUMMARY PT IS A 55 Y/O FEMALE, ADMITTED FOR [facility] AND CURRENTLY AWAITING PLACEMENT. SHE IS A&O X 4, BEDBOUND LIFT PT. SHE C/O CHRONIC KNEE PAIN, AND WAS MEDICATED WITH PRN OXYCODONE AND SKELAXIN. NO C/O NAUSEA OR SOB. PT IS ON 3L OF O2 VIA NC, WHICH IS HER NORMAL HOME DOSE, SATTING > 90%. VITAL SIGNS STABLE. NO ACUTE CHANGES IN PT CONDITION NOTED DURING THE NIGHT. REPORT GIVEN TO ONCOMING RN.
--- NOTE | 2020-11-06 16:59 | NUR ---
SHIFT SUMMARY PT AOX3; PT PAINFUL OF 9/10 ON HER BILAT KNEES AND MEDICATED PER EMAR. PT ALSO RECEIVED MEDICATIONS FOR MUSCLE SPASM TID PRN. PT IS ON 3L AT BASELINE. NO IV ACCESS. BED IS IN THE LOWEST POSITION AND CALL LIGHT WITHIN REACH
--- NOTE | 2020-11-07 07:24 | NUR ---
SHIFT SUMMARY PT IS A 55 Y/O FEMALE, ADMITTED FOR [facility] AND CURRENTLY AWAITING PLACEMENT. SHE IS A&O X 4, BEDREST LIFT PT. SHE WAS MEDICATED FOR CHRONIC BLE PAIN WITH PRN OXYCODONE. NO C/O NAUSEA OR SOB. PT IS ON 3L O2 VIA NC, WHICH IS HER NORMAL HOME DOSE. VITAL SIGNS STABLE. NO ACUTE CHANGES IN PT CONDITION NOTED DURING THE NIGHT. WILL CONTINUE TO MONITOR AND TREAT PER EMAR UNTIL HAND OFF TO DAY SHIFT RN.
--- NOTE | 2020-11-07 16:50 | NUR ---
Spiritual care note: Anais was irritable today. She complained of pain in her legs and thirst. She asked me to get her some ice, but I was informed by RN, she was near her daily fluid limit. I supported and affirmed her, but could do little else. I will continue to follow.
--- NOTE | 2020-11-07 17:45 | NUR ---
SHIFT SUMMARY. A&OX3, BEDREST/LIFT. PT CONTINUES WITH CONTINUOUS PAIN TO BILATERAL KNEES, PAIN MANAGED WELL WITH CURRENT ORDERS. PT DENIES N/V, SOB. INCONTINENT OF URINE, ROUTINE INCONTINENCE CARE PROVIDED. NO NEW CHANGES OR CONCERNS.
[2020-11-08 05:52] LABS: Anion Gap 7 mmol/L (6-16); Blood Urea Nitrogen 24 mg/dL (8-24); Bun/Creatinine Ratio 26.2 (12.0-20.0); CO2, Blood 31 mmol/L (21-32); Calcium, Blood 9.3 mg/dL (8.5-10.1); Chloride, Blood 98 mmol/L (98-108); Creatinine, Blood 0.92 mg/dL (0.40-1.00); Glomerular Filtration Rate >60 (60-); Glucose, Blood 99 mg/dL (70-99); Potassium, Blood 3.8 mmol/L (3.5-5.5); Sodium, Blood 136 mmol/L (136-145)
--- NOTE | 2020-11-08 06:33 | NUR ---
SHIFT SUMMARY PATIENT ALERT AND ORIENTED. WAS MEDICATED PER EMAR FOR PAIN. NO COMPLAINTS OF SHORTNESS OF BREATH. NO ACUTE ISSUES NOTED OVERNIGHT. BED IN LOWEST POSITION WITH WHEELS LOCKED AND ALARM ON. CALL LIGHT WITHIN REACH. REPORT GIVEN TO ONCOMING RN.
--- NOTE | 2020-11-08 17:58 | NUR ---
SHIFT SUMMARY PT UP TO CHAIR TODAY FOR THERAPY & LUNCH. PT THEN GIVEN SHOWER. NO ACUTE CHANGES IN ASSESSMENT AT THIS TIME. VS REVIEWED. PT RESTING IN BED. EATING DINNER. CALL LIGHT IN REACH. SEE EMAR FOR PAIN EPIC CUPID SPECIALISTS.
--- NOTE | 2020-11-08 19:15 | NUR ---
ASSUMED CARE RECEIVED REPORT FROM CLAUDIA LEVINE. PT RESTING, IN NAD. NO ACUTE NEEDS ASSESSED AT THIS TIME. CALL LIGHT, POSSESSIONS IN REACH.
--- NOTE | 2020-11-09 04:02 | NUR ---
MERCERIZING RANGE CONTROLLER SUMMARY PT RESTING, IN NAD. NO ACUTE CHANGES IN CONDITION TO REPORT OVERNIGHT, PT SLEPT ON AND OFF. VS REVIEWED,WNL. PAIN MANAGED WITH MEDICATIONS PER EMAR AND REPOSITIONING. REMAINS ON 3L/NC. NO ACUTE NEEDS ASSESSED AT THIS TIME. CALL LIGHT, POSSESSIONS IN REACH, BED IN LOW AND LOCKED POSITION. WILL CONTINUE TO PROVIDE CARE NEEDED UNTIL REPORT GIVEN TO ONCOMING RN.
--- NOTE | 2020-11-09 19:38 | NUR ---
PT RESTING IN BED AFTER DINNER AND PM MEDICATION ADMIN. PT C/O PAIN IN HER LEGS AND KNEES AND WAS TREATED PER EMAR. PT WAS NOT ABLE TO WORK WITH PHYSICAL THERAPY TODAY PLANNED SINCE SHE WAS MORE TIRED THAN USUAL. PT REMIANS ALERT AND ORIENTED X4 AND CARE PLAN/MEDICATION COMPLIANT. BED WAS LEFT IN LOW POSITION AND CALL LIGHT WITHIN REACH. STAFF WILL CONTINUE TO MONITOR.
[2020-11-10 06:11] LABS: Anion Gap 7 mmol/L (6-16); Blood Urea Nitrogen 26 mg/dL (8-24); Bun/Creatinine Ratio 27.2 (12.0-20.0); CO2, Blood 33 mmol/L (21-32); Calcium, Blood 8.7 mg/dL (8.5-10.1); Chloride, Blood 94 mmol/L (98-108); Creatinine, Blood 0.96 mg/dL (0.40-1.00); Glomerular Filtration Rate >60 (60-); Glucose, Blood 112 mg/dL (70-99); Potassium, Blood 3.1 mmol/L (3.5-5.5); Sodium, Blood 134 mmol/L (136-145)
--- NOTE | 2020-11-10 07:10 | NUR ---
SHIFT SUMMARY PT IS A 55 Y/O FEMALE, ADMITTED FOR ANA[facility] AND CURRENTLY AWAITING PLACEMENT. SHE IS A&O X 4, BEDREST LIFT PT. SHE WAS MEDICATED FOR BLE PAIN WITH PRN MUSCLE RELAXERS AND OXYCODONE. NO C/O NAUSEA OR SOB. PT IS ON 3L OF O2 VIA NC, WHICH IS HER NORMAL HOME DOSE. VITAL SIGNS STABLE. NO ACUTE CHANGES IN PT CONDITION NOTED DURING THE NIGHT. REPORT GIVEN TO ONCOMING RN.
--- NOTE | 2020-11-10 17:28 | NUR ---
SUMMARY PT RESTING QUIETLY IN BED, WAKES EASILY, PT WITH INCREASED L KNEE PAIN TODAY, NEW IV PLACED AND PT MED WITH TORADOL, SOME IMPROVEMENT, PT DECLINED TO WORK WITH PT/OT TODAY OTHER THAN BED EXERCISES, PT HAS BEEN PLEASANT AND COOPERATIVE WITH CARE, VSS, WILL CONT TO MONITOR
--- NOTE | 2020-11-11 04:38 | NUR ---
SHIFT SUMMARY PT HAD AN UNEVENTFUL NIGHT. REMAINED IN BED. REPORTED PAIN TO KNEES, MORE SEVERELY IN HER LEFT. MEDICATED PER EMAR. PT SLEPT IN BETWEEN DOSES OF PAIN MEDICATION. PT INCONTINENT. REQUIRED TWO PEOPLE FOR TURNING AND CHANGING R/T PAIN IN KNEE. VITAL SIGNS STABLE. NO ACUTE CHANGES THIS EVENING. WILL CONTINUE TO MONITOR.
[2020-11-11 05:53] LABS: Calcium, Blood 8.9 mg/dL (8.5-10.1); Creatinine, Blood 1.62 mg/dL (0.40-1.00); Potassium, Blood 4.1 mmol/L (3.5-5.5)
--- NOTE | 2020-11-11 17:40 | NUR ---
SHIFT SUMMARY PT AXO, PLEASANT AND COOPERATIVE WITH CARE. MEDICATIONS THIS MORNING WERE LATE R/T PT ON BEDPAN AND WANTING NURSE TO STEP OUT FOR PRIVACY. VSS THOUGH HYPOTENTION NOTED, DR JOHNSON AWARE AND SOME MEDS HELD, SEE MAR. PT MEDICATED FOR PAIN, MUSCLE SPASMS AND EYE IRRITATION PER EMAR WELL. IV PATENT AND SALINE LOCKED. PT WORKED WITH PHYSICAL THERAPY, SEE NOTE. BED IN LOW POSITION, CALL LIGHT WITHIN REACH. PATIENT HAD BED BATH THIS SHIFT. TAKES PILLS WHOLE IN CHOCOLATE PUDDING. NO OTHER CHANGES THIS SHIFT. PT DENIES SOB AND N/V. 620MLS IN SO FAR THIS SHIFT, 2 INCONTINENT VOIDS THIS SHIFT WELL.
--- NOTE | 2020-11-11 19:00 | NUR ---
ASSUMED CARE RECEIVED REPORT FROM CLAUDIA PACKER. PT RESTING, IN NAD. NO ACUTE NEEDS ASSESSED AT THIS TIME. CALL LIGHT, POSSESSIONS IN REACH, BED IN LOW AND LOCKED POSITION.
[2020-11-12 05:18] LABS: Bun/Creatinine Ratio 27.7 (12.0-20.0); Calcium, Blood 9.1 mg/dL (8.5-10.1); Creatinine, Blood 1.37 mg/dL (0.40-1.00); Potassium, Blood 3.9 mmol/L (3.5-5.5)
--- NOTE | 2020-11-12 06:45 | NUR ---
PRINCIPAL PLANNER SUMMARY PT RESTING, IN NAD. HAS SLEPT ON AND OFF T/O NIGHT. NO ACUTE CHANGES TO REPORT OVERNIGHT. VS REVIEWED,WNL. PAIN AND MUSCLE SPASMS MANAGED WITH MEDS PER EMAR. O2 SATS WNL ON 4L/NC. NO ACUTE NEEDS ASSESSED AT THIS TIME. CALL LIGHT, POSSESSIONS IN REACH, BED IN LOW AND LOCKED POSITION. WILL REPORT OFF TO ONCOMING RN.
[2020-11-12 10:44] LABS: Source, Urine Clean Catch
[2020-11-12 10:59] LABS: Appearance, Urine Hazy (Clear); Bilirubin, Urine Neg (Neg); Blood, Urine 2+ (Neg); Color, Urine Yellow (P-Yellow); Glucose Qualitative, Urine Neg (Neg); Ketones, Urine Neg (Neg); Leukocyte Esterase, Urine 3+ (Neg); Nitrite, Urine Neg (Neg); Protein, Urine Neg (Neg); Urobilinogen, Urine NORM (Normal); pH, Urine 6.5 (5.0-8.0)
[2020-11-12 11:13] LABS: Bacteria Many /hpf; Squamous Epithelial Cells Few /hpf (Few); White Blood Cells, Urine 25-50 /hpf (0-5)
--- NOTE | 2020-11-12 19:20 | NUR ---
ASSUMED CARE RECEIVED REPORT FROM CLAUDIA TAYLOR. PT RESTING, IN NAD. NO ACUTE NEEDS ASSESSED AT THIS TIME. CALL LIGHT, POSSESSIONS IN REACH, BED IN LOW AND LOCKED POSITION.
--- NOTE | 2020-11-13 06:19 | NUR ---
OINTMENT MILL TENDER SUMMARY PT RESTING, IN NAD. APPEARS COMFORTABLE. NO ACUTE CHANGES TO REPORT OVERNIGHT, PT SLEPT ON AND OFF. PAIN MANAGED WITH MEDS PER EMAR, WITH LITTLE EFFECT; ENCOURAGED PT TO MAINTAIN POSITION OF COMFORT. VS REVIEWED,WNL; O2 SATS STABLE ON 4L/NC. COMPLIANT WITH 2L FLUID RESTRICTION. CONTINUES TO AWAIT PLACEMENT. NO ACUTE NEEDS ASSESSED AT THIS TIME. CALL LIGHT, POSSESSIONS IN REACH, BED IN LOW AND LOCKED POSITION. WILL CONTINUE TO PROVIDE CARE UNTIL REPORT GIVEN TO ONCOMING RN.
--- NOTE | 2020-11-13 19:15 | NUR ---
ASSUMED CARE RECEIVED REPORT FROM CLAUDIA TAYLOR. PT RESTING, IN NAD. NO ACUTE NEEDS ASSESSED AT THIS TIME. CALL LIGHT, POSSESSIONS IN REACH,BED IN LOW POSITION WITH ALARMS ON.
--- NOTE | 2020-11-14 05:59 | NUR ---
SYSTEM SAFETY MANAGER SUMMARY PT RESTING, IN NAD. NO ACUTE CHANGES TO REPORT OVERNIGHT, SLEPT ON AND OFF. PAIN AND MUSCLE SPASMS MANAGED WITH MEDS PER EMAR, WITH SOME RELIEF. VS REVIEWED,WNL; BP'S IMPROVED, O2 SATS STABLE ON 4L/NC. NO C/O SOB/DYSPNEA. SKIN KEPT C/D/I. PO ABX CONTINUE FOR UTI. NO ACUTE NEEDS ASSESSED AT THIS TIME. CALL LIGHT, POSSESSIONS IN REACH, BED IN LOW AND LOCKED POSITION. WILL REPORT OFF TO ONCOMING RN.
--- NOTE | 2020-11-14 17:25 | NUR ---
Spiritual care note: Bereavement psychotherapist counselor and emotional affirmation provided to Anais with good effect. She is actively grieving many losses. I will continue to follow.
--- NOTE | 2020-11-15 03:36 | NUR ---
MIGHT SHIFT SUMMARY HAS BEEN RESTING QUIETLY AT INTERVALS THROUGH SHIFT. FLUID RESTRICTOIN CONTINUES. PAIN MEDS AND MUSCLE RELAXANT ADMINISTERED PER MD ORDERS - SEE MAR FOR DETAILS. CURRENTLY RESTING QUIETLY. CALL LIGHT IN REACH. O2 PER NC AT 4L/MIN.
[2020-11-15 05:32] LABS: Bun/Creatinine Ratio 27.7 (12.0-20.0); Calcium, Blood 9.3 mg/dL (8.5-10.1); Creatinine, Blood 0.98 mg/dL (0.40-1.00); Magnesium, Blood 1.9 mg/dL (1.6-2.4); Potassium, Blood 4.1 mmol/L (3.5-5.5)
--- NOTE | 2020-11-15 19:09 | NUR ---
SHIFT SUMMARY- PT IS A/O, PLESANT AND COOPERATIVE. SHE IS EATING AND DRINKING WELL. SLEPT INTERMITENTLY DURING THIS SHIFT. SHE WORKED WITH PT THIS SHIFT AND TOLERATED WELL. SHE TOOK A SHOWER HIS SHIFT. HER BED IS IN THE LOW POSITION AND CALL LIGHT IS WITHIN REACH.
--- NOTE | 2020-11-15 20:04 | NUR ---
RESTING QUIETELY AT SHIFT COMMENCE. CALL LIGHT IN REACH
--- NOTE | 2020-11-16 04:08 | NUR ---
HIGH SCHOOL FRENCH TEACHER SUMMARY AWAKE AT INTERVALS FOR PAIN MEDS AND ATARAX FOR "ITCHING". O2 PER NC. INCONT A FEW TIMES AND CHANGED. VOICED SHE WAS GOING TO BE DISCHARGED TODAY. CALL LIGHT IN REACH.
[2020-11-16] MEDS ORDERED: ALBU2.5V5 INH (10:15)
[2020-11-16] MEDS ORDERED: DOCU100 PO (10:15)
[2020-11-16] MEDS ORDERED: CEPH500 PO (10:15)
[2020-11-16] MEDS ORDERED: BUSP10 PO (10:15)
[2020-11-16] MEDS ORDERED: Prozac40 MG PO (10:16)
[2020-11-16] MEDS ORDERED: GABA100 PO (10:17)
[2020-11-16] MEDS ORDERED: CORTISONE60 GM TOP (10:17)
[2020-11-16] MEDS ORDERED: LIDOCAINE1 EAC1 TOP (10:18)
[2020-11-16] MEDS ORDERED: HYDHCL25 PO (10:18)
[2020-11-16] MEDS ORDERED: EUTHYROX100 MCG PO (10:18)
[2020-11-16] MEDS ORDERED: MAGNESIUM OXID500 MG PO (10:19)
[2020-11-16] MEDS ORDERED: MELATONIN5 M1 PO (10:19)
[2020-11-16] MEDS ORDERED: LIOT50 PO (10:19)
[2020-11-16] MEDS ORDERED: METAXALONE PO (10:20)
[2020-11-16] MEDS ORDERED: OXYC5 PO (10:20)
[2020-11-16] MEDS ORDERED: SPIR50 PO (10:20)
[2020-11-16] MEDS ORDERED: VISBIOME 112.51 EACH PO (10:21)
[2020-11-16] MEDS ORDERED: ALCIS59.15 ML TOP (10:21)
[2020-11-16] MEDS ORDERED: XARELTO10 M1 PO (10:21)
[2020-11-16 11:27] LABS: SARS-Cov-2 (COVID-19) PCR, MMC NEGATIVE (NEGATIVE)
--- NOTE | 2020-11-16 15:26 | NUR ---
ATTEMPTED TO CALL NURSE @ [facility] TO GIVE REPORT @ 1217. STAFF MEMBER STATED NURSE WILL RETURN CALL [facility]. RN NAME AND PHONE NUMBER PROVIDED TO [facility].
--- NOTE | 2020-11-16 17:10 | NUR ---
DISCHARGE SUMMARY PT DISCHARGED @ APPROX 1710 VIA [facility]. PT LIFTED TO [facility] VIA [facility]. PT STATES SHE HAS ALL OF HER BELONGINGS AT THIS TIME. IV REMOVED AND SITE APPEARED WNL. REPORT CALLED TO CARRY, RN @ [facility] PRIOR TO PT DISCHARGE. PAPERWORK PROVIDED TO EMT.
--- NOTE | 2020-11-16 18:38 | NUR ---
Spiritual care note: Celebrated with Anais as she prepared to go to rehab. She was tearful and expressed enormous gratitude for compassinate care by [facility] staff. Prayer provided before she departed. Anais has my contact information and we plan to remain in contact.
== END 2020-11-16 17:06 | DRG 291 ==
LOC: ER 12:34 → PCU 15:42 → MEDS 15:42 → PCU 17:54 → MEDS 08-07 12:21
PROVIDERS: Emergency Medicine; Family Medicine; Internal Medicine; ADMIT Internal Medicine
DX: I13.0 Hypertensive heart and chronic kidney disease with heart failure and stage 1 through stage 4 chronic kidney disease, or unspecified chronic kidney disease (principal); J96.21 Acute and chronic respiratory failure with hypoxia; J96.22 Acute and chronic respiratory failure with hypercapnia; I50.33 Acute on chronic diastolic (congestive) heart failure; N39.0 Urinary tract infection, site not specified; E87.1 Hypo-osmolality and hyponatremia; Z68.45 Body mass index [BMI] 70 or greater, adult; E66.2 Morbid (severe) obesity with alveolar hypoventilation; N17.9 Acute kidney failure, unspecified; Z20.822 Contact with and (suspected) exposure to COVID-19; K70.30 Alcoholic cirrhosis of liver without ascites; I95.9 Hypotension, unspecified; B96.5 Pseudomonas (aeruginosa) (mallei) (pseudomallei) as the cause of diseases classified elsewhere; B95.2 Enterococcus as the cause of diseases classified elsewhere; L89.152 Pressure ulcer of sacral region, stage 2; F10.20 Alcohol dependence, uncomplicated; D50.9 Iron deficiency anemia, unspecified; E87.6 Hypokalemia; E83.42 Hypomagnesemia; D63.1 Anemia in chronic kidney disease; K75.81 Nonalcoholic steatohepatitis (NASH); Z74.01 Bed confinement status; L29.9 Pruritus, unspecified; F41.9 Anxiety disorder, unspecified; E03.9 Hypothyroidism, unspecified; N18.30 Chronic kidney disease, stage 3 unspecified; K21.9 Gastro-esophageal reflux disease without esophagitis; Z71.41 Alcohol abuse counseling and surveillance of alcoholic; Z28.21 Immunization not carried out because of patient refusal; F32.9 Major depressive disorder, single episode, unspecified; J44.9 Chronic obstructive pulmonary disease, unspecified; M17.0 Bilateral primary osteoarthritis of knee; G25.2 Other specified forms of tremor; Z98.51 Tubal ligation status; Z99.81 Dependence on supplemental oxygen; Z88.5 Allergy status to narcotic agent; Z79.899 Other long term (current) drug therapy; Z87.891 Personal history of nicotine dependence
CPT/HCPCS: 36415; 71045; 73562-LT; 73562-RT; 80048; 80053; 80069; 81001; 82140; 82248; 82330; 82533; 82607; 82728; 82746; 82947; 83540; 83550; 83735; 83880; 84100; 84132; 84439; 84443; 84481; 84484; 85014; 85018; 85025; 85027; 87070; 87077; 87086; 87186; 87205; 93005; 93010; 93306; 93970; 94640; 94760; 94762; 96374; 97110; 97110-CQ; 97163; 97166; 97168; 97530; 97535; 99285-25; A9270; J1650; J1885; J1940; J3010; J3475; J3480; J7030; J7040; J7050; J7512; P9046; U0004

== ENCOUNTER → 2020-11-23 | Outpatient (CLI) | payer OTHER ==
[~2020-11-23] MED LIST changes: +ALCIS59.15 ML TOP; +BUSP10 PO; +CEPH500 PO; +CORTISONE60 GM TOP; +EUTHYROX100 MCG PO; +GABA100 PO; +HYDHCL25 PO; +LIDOCAINE1 EAC1 TOP; +LIOT50 PO; +MAGNESIUM OXID500 MG PO; +METAXALONE PO; +POTA10T PO; +Prozac40 MG PO; +VISBIOME 112.51 EACH PO; +VITAMIN D325 MC3 PO; +XARELTO10 M1 PO
== END ==
LOC: EDSTATUS 09:19 → LAB RH 09:40
DX: J96.11 Chronic respiratory failure with hypoxia (principal); K70.30 Alcoholic cirrhosis of liver without ascites
CPT/HCPCS: 82140

== ENCOUNTER → 2020-11-24 | Outpatient (CLI) | payer OTHER ==
[2020-11-24 20:58] LABS: Hematocrit 32.2 % (33.0-51.0); Hemoglobin 10.7 g/dL (11.5-16.0); Mean Corpuscular HGB 29.8 pg (26.0-34.0); Mean Corpuscular HGB Conc 33.2 g/dL (31.5-36.5); Mean Corpuscular Volume 90 fL (80-100); Mean Platelet Volume 10.5 fL (9.1-12.4); Platelet Count 215 K/mm3 (150-400); RDW Coefficient Variation 12.6 % (11.7-14.2); RDW Standard Deviation 41.4 fL (35.1-46.3); Red Blood Cell Count 3.59 M/mm3 (3.80-5.20); White Blood Cell Count 7.39 K/mm3 (4.00-11.30)
[2020-11-24 21:16] LABS: Alanine Aminotransfer (ALT/SGP 19 U/L (12-78); Albumin, Blood 2.5 g/dL (3.4-5.0); Albumin/Globulin Ratio 0.6 (0.8-1.8); Alk Phos 82 U/L (50-136); Anion Gap 6 mmol/L (6-16); Aspartate Aminotrans (AST/SGOT 22 U/L (12-37); Bilirubin, Total 0.8 mg/dL (0.1-1.0); Blood Urea Nitrogen 12 mg/dL (8-24); CO2, Blood 30 mmol/L (21-32); Calcium, Blood 9.1 mg/dL (8.5-10.1); Chloride, Blood 99 mmol/L (98-108); Creatinine, Blood 0.75 mg/dL (0.40-1.00); Globulin, Blood 4.1 g/dL (2.2-4.0); Glomerular Filtration Rate >60 (60-); Glucose, Blood 98 mg/dL (70-99); Potassium, Blood 4.6 mmol/L (3.5-5.5); Sodium, Blood 135 mmol/L (136-145); Total Protein, Blood 6.6 g/dL (6.4-8.2)
== END ==
LOC: EDSTATUS 09:21 → LAB RH 20:05
PROVIDERS: Internal Medicine
DX: K70.30 Alcoholic cirrhosis of liver without ascites (principal); J96.21 Acute and chronic respiratory failure with hypoxia
CPT/HCPCS: 80053; 85027

== ENCOUNTER 2020-12-07 14:22 | Emergency (ER) | payer OTHER ==
[~2020-12-07] VITALS: Ht 167.6 cm; Wt 147.4 kg
[2020-12-07 15:54] LABS: BASOPHILS ABSOLUTE AUTO 0.02 K/mm3 (0.00-0.23); BASOPHILS PERCENT AUTO 0 % (0-2); EOSINOPHILS PERCENT AUTO 5 % (0-6); Hematocrit 37.2 % (33.0-51.0); IMMATURE GRAN ABSOLUTE AUTO 0.04 K/mm3 (0.00-0.10); IMMATURE GRAN PERCENT AUTO 0 % (0-1); LYMPHOCYTES ABSOLUTE AUTO 2.09 K/mm3 (0.84-5.20); LYMPHOCYTES PERCENT AUTO 21 % (21-46); MONOCYTES PERCENT AUTO 13 % (4-13); Mean Corpuscular HGB 29.6 pg (26.0-34.0); Mean Corpuscular HGB Conc 32.3 g/dL (31.5-36.5); Mean Corpuscular Volume 92 fL (80-100); Mean Platelet Volume 10.1 fL (9.1-12.4); NEUTROPHILS ABSOLUTE AUTO 6.01 K/mm3 (1.96-9.15); NEUTROPHILS PERCENT AUTO 60 % (41-73); Platelet Count 247 K/mm3 (150-400); RDW Coefficient Variation 12.8 % (11.7-14.2); RDW Standard Deviation 42.6 fL (35.1-46.3); Red Blood Cell Count 4.06 M/mm3 (3.80-5.20); White Blood Cell Count 9.96 K/mm3 (4.00-11.30)
[2020-12-07 16:07] LABS: Anion Gap 2 mmol/L (6-16); Blood Urea Nitrogen 13 mg/dL (8-24); Bun/Creatinine Ratio 23.4 (12.0-20.0); CO2, Blood 28 mmol/L (21-32); Calcium, Blood 8.8 mg/dL (8.5-10.1); Chloride, Blood 106 mmol/L (98-108); Creatinine, Blood 0.56 mg/dL (0.40-1.00); Glomerular Filtration Rate >60 (60-); Glucose, Blood 105 mg/dL (70-99); Potassium, Blood 4.5 mmol/L (3.5-5.5); Sodium, Blood 136 mmol/L (136-145)
[2020-12-07 17:18] LABS: Source, Urine Catheter
[2020-12-07 17:34] LABS: Appearance, Urine Hazy (Clear); Bilirubin, Urine Neg (Neg); Blood, Urine 1+ (Neg); Color, Urine Yellow (P-Yellow); Glucose Qualitative, Urine Neg (Neg); Ketones, Urine Neg (Neg); Leukocyte Esterase, Urine 3+ (Neg); Nitrite, Urine Pos (Neg); Protein, Urine Neg (Neg); Specific Gravity, Urine 1.015 (1.003-1.022); Urobilinogen, Urine NORM (Normal)
[2020-12-07 17:41] LABS: Bacteria Many /hpf; Red Blood Cells, Urine Rare /hpf (0-2); Squamous Epithelial Cells Rare /hpf (Few); White Blood Cells, Urine 50-100 /hpf (0-5)
[2020-12-07] MEDS ORDERED: CEPH500 PO (18:32)
== END 2020-12-07 19:37 | disposition home or self-care (01) ==
LOC: ER 14:22
PROVIDERS: Emergency Medicine
DX: L03.115 Cellulitis of right lower limb (principal); N39.0 Urinary tract infection, site not specified; L03.116 Cellulitis of left lower limb; E66.01 Morbid (severe) obesity due to excess calories; J44.9 Chronic obstructive pulmonary disease, unspecified; I50.9 Heart failure, unspecified; Z88.5 Allergy status to narcotic agent; Z87.891 Personal history of nicotine dependence; Z68.43 Body mass index [BMI] 50.0-59.9, adult
CPT/HCPCS: 80048; 81001; 85025; 87077; 87086; 87186; 99283; A9270; P9612

== ENCOUNTER → 2020-12-21 | Outpatient (CLI) | payer OTHER ==
[2020-12-21 21:29] LABS: BASOPHILS ABSOLUTE AUTO 0.03 K/mm3 (0.00-0.23); BASOPHILS PERCENT AUTO 1 % (0-2); EOSINOPHILS ABSOLUTE AUTO 0.29 K/mm3 (0.00-0.68); EOSINOPHILS PERCENT AUTO 5 % (0-6); Hematocrit 34.1 % (33.0-51.0); Hemoglobin 11.4 g/dL (11.5-16.0); IMMATURE GRAN ABSOLUTE AUTO 0.03 K/mm3 (0.00-0.10); IMMATURE GRAN PERCENT AUTO 1 % (0-1); LYMPHOCYTES ABSOLUTE AUTO 1.14 K/mm3 (0.84-5.20); LYMPHOCYTES PERCENT AUTO 21 % (21-46); MONOCYTES ABSOLUTE AUTO 0.74 K/mm3 (0.16-1.47); MONOCYTES PERCENT AUTO 14 % (4-13); Mean Corpuscular HGB 30.2 pg (26.0-34.0); Mean Corpuscular HGB Conc 33.4 g/dL (31.5-36.5); Mean Corpuscular Volume 91 fL (80-100); Mean Platelet Volume 10.8 fL (9.1-12.4); NEUTROPHILS ABSOLUTE AUTO 3.12 K/mm3 (1.96-9.15); NEUTROPHILS PERCENT AUTO 58 % (41-73); Platelet Count 159 K/mm3 (150-400); RDW Coefficient Variation 13.8 % (11.7-14.2); RDW Standard Deviation 45.6 fL (35.1-46.3); Red Blood Cell Count 3.77 M/mm3 (3.80-5.20); White Blood Cell Count 5.35 K/mm3 (4.00-11.30)
[2020-12-21 21:49] LABS: Alanine Aminotransfer (ALT/SGP 30 U/L (12-78); Albumin, Blood 2.4 g/dL (3.4-5.0); Albumin/Globulin Ratio 0.6 (0.8-1.8); Alk Phos 134 U/L (50-136); Anion Gap 5 mmol/L (6-16); Aspartate Aminotrans (AST/SGOT 28 U/L (12-37); Bilirubin, Total 0.5 mg/dL (0.1-1.0); Blood Urea Nitrogen 13 mg/dL (8-24); Bun/Creatinine Ratio 18.6 (12.0-20.0); CO2, Blood 30 mmol/L (21-32); Chloride, Blood 97 mmol/L (98-108); Globulin, Blood 3.9 g/dL (2.2-4.0); Glomerular Filtration Rate >60 (60-); Glucose, Blood 101 mg/dL (70-99); Potassium, Blood 4.4 mmol/L (3.5-5.5); Sodium, Blood 132 mmol/L (136-145); Total Protein, Blood 6.3 g/dL (6.4-8.2)
== END | disposition home or self-care (01) ==
LOC: EDSTATUS 07:35 → LAB RH 21:23
PROVIDERS: Internal Medicine
DX: J96.21 Acute and chronic respiratory failure with hypoxia (principal); L03.90 Cellulitis, unspecified
CPT/HCPCS: 80053; 85025

== ENCOUNTER → 2021-01-08 | Outpatient (CLI) | payer OTHER ==
[2021-01-08 14:57] LABS: Appearance, Urine Hazy (Clear); Bilirubin, Urine Neg (Neg); Blood, Urine 4+ (Neg); Color, Urine Yellow (P-Yellow); Glucose Qualitative, Urine Neg (Neg); Ketones, Urine Neg (Neg); Leukocyte Esterase, Urine 3+ (Neg); Nitrite, Urine Neg (Neg); Protein, Urine 3+ (Neg); Urobilinogen, Urine NORM (Normal); pH, Urine 6.5 (5.0-8.0)
[2021-01-08 15:14] LABS: Bacteria Many /hpf; White Blood Cells, Urine 50-100 /hpf (0-5)
[2021-01-08 15:15] LABS: Squamous Epithelial Cells Few /hpf (Few)
== END | disposition home or self-care (01) ==
LOC: EDSTATUS 11:57 → LAB RH 14:47
PROVIDERS: Internal Medicine
DX: N39.0 Urinary tract infection, site not specified (principal)
CPT/HCPCS: 81001; 87077; 87086; 87186

== ENCOUNTER 2021-01-26 09:48 | Emergency (ER) | payer OTHER ==
[~2021-01-26] VITALS: Ht 167.6 cm; Wt 145.2 kg
[2021-01-26 10:44] LABS: BASOPHILS PERCENT AUTO 1 % (0-2); EOSINOPHILS ABSOLUTE AUTO 0.75 K/mm3 (0.00-0.68); EOSINOPHILS PERCENT AUTO 11 % (0-6); Hematocrit 34.5 % (33.0-51.0); Hemoglobin 11.1 g/dL (11.5-16.0); IMMATURE GRAN ABSOLUTE AUTO 0.02 K/mm3 (0.00-0.10); IMMATURE GRAN PERCENT AUTO 0 % (0-1); LYMPHOCYTES ABSOLUTE AUTO 1.88 K/mm3 (0.84-5.20); LYMPHOCYTES PERCENT AUTO 27 % (21-46); MONOCYTES ABSOLUTE AUTO 0.74 K/mm3 (0.16-1.47); MONOCYTES PERCENT AUTO 11 % (4-13); Mean Corpuscular HGB Conc 32.2 g/dL (31.5-36.5); Mean Corpuscular Volume 93 fL (80-100); Mean Platelet Volume 9.6 fL (9.1-12.4); NEUTROPHILS PERCENT AUTO 50 % (41-73); Platelet Count 233 K/mm3 (150-400); RDW Coefficient Variation 15.2 % (11.7-14.2); RDW Standard Deviation 52.1 fL (35.1-46.3); White Blood Cell Count 6.99 K/mm3 (4.00-11.30)
[2021-01-26 11:25] LABS: Alanine Aminotransfer (ALT/SGP 22 U/L (12-78); Albumin, Blood 2.4 g/dL (3.4-5.0); Albumin/Globulin Ratio 0.5 (0.8-1.8); Alk Phos 111 U/L (50-136); Anion Gap 6 mmol/L (6-16); Aspartate Aminotrans (AST/SGOT 27 U/L (12-37); Bilirubin, Total 0.6 mg/dL (0.1-1.0); Blood Urea Nitrogen 12 mg/dL (8-24); Bun/Creatinine Ratio 18.9 (12.0-20.0); CO2, Blood 30 mmol/L (21-32); Calcium, Blood 9.2 mg/dL (8.5-10.1); Chloride, Blood 103 mmol/L (98-108); Creatinine, Blood 0.64 mg/dL (0.40-1.00); Globulin, Blood 4.5 g/dL (2.2-4.0); Glomerular Filtration Rate >60 (60-); Glucose, Blood 123 mg/dL (70-99); Sodium, Blood 139 mmol/L (136-145); Total Protein, Blood 6.9 g/dL (6.4-8.2)
== END 2021-01-26 14:38 | disposition home or self-care (01) ==
LOC: ER 09:48
PROVIDERS: Emergency Medicine
DX: L03.115 Cellulitis of right lower limb (principal); M79.81 Nontraumatic hematoma of soft tissue; J44.9 Chronic obstructive pulmonary disease, unspecified; I50.9 Heart failure, unspecified; E03.9 Hypothyroidism, unspecified; D64.9 Anemia, unspecified; J96.21 Acute and chronic respiratory failure with hypoxia; J96.22 Acute and chronic respiratory failure with hypercapnia; E66.01 Morbid (severe) obesity due to excess calories; Z68.43 Body mass index [BMI] 50.0-59.9, adult; Z99.81 Dependence on supplemental oxygen; Z88.5 Allergy status to narcotic agent; Z79.899 Other long term (current) drug therapy; Z87.891 Personal history of nicotine dependence
CPT/HCPCS: 36415; 73701; 80053; 85025; 86140; 99284-25; Q9967

== ENCOUNTER → 2021-02-22 | Outpatient (CLI) | payer OTHER ==
[2021-02-22 14:58] LABS: BASOPHILS PERCENT AUTO 1 % (0-2); EOSINOPHILS ABSOLUTE AUTO 1.38 K/mm3 (0.00-0.68); EOSINOPHILS PERCENT AUTO 20 % (0-6); Hematocrit 36.2 % (33.0-51.0); Hemoglobin 11.9 g/dL (11.5-16.0); IMMATURE GRAN ABSOLUTE AUTO 0.03 K/mm3 (0.00-0.10); IMMATURE GRAN PERCENT AUTO 0 % (0-1); LYMPHOCYTES ABSOLUTE AUTO 1.85 K/mm3 (0.84-5.20); LYMPHOCYTES PERCENT AUTO 26 % (21-46); MONOCYTES ABSOLUTE AUTO 0.66 K/mm3 (0.16-1.47); MONOCYTES PERCENT AUTO 9 % (4-13); Mean Corpuscular HGB 31.2 pg (26.0-34.0); Mean Corpuscular HGB Conc 32.9 g/dL (31.5-36.5); Mean Corpuscular Volume 95 fL (80-100); Mean Platelet Volume 10.7 fL (9.1-12.4); NEUTROPHILS ABSOLUTE AUTO 3.05 K/mm3 (1.96-9.15); NEUTROPHILS PERCENT AUTO 43 % (41-73); Platelet Count 212 K/mm3 (150-400); RDW Coefficient Variation 14.2 % (11.7-14.2); RDW Standard Deviation 49.7 fL (35.1-46.3); Red Blood Cell Count 3.82 M/mm3 (3.80-5.20); White Blood Cell Count 7.07 K/mm3 (4.00-11.30)
[2021-02-22 15:17] LABS: Albumin, Blood 2.6 g/dL (3.4-5.0); Albumin/Globulin Ratio 0.6 (0.8-1.8); Bilirubin, Direct 0.2 mg/dL (0.0-0.3); Bilirubin, Indirect 0.6 mg/dL (0.1-0.7); Bilirubin, Total 0.8 mg/dL (0.1-1.0); Globulin, Blood 4.5 g/dL (2.2-4.0); Total Protein, Blood 7.1 g/dL (6.4-8.2)
== END | disposition home or self-care (01) ==
LOC: EDSTATUS 09:52 → LAB RH 13:38
PROVIDERS: Internal Medicine
DX: B35.4 Tinea corporis (principal); Z79.899 Other long term (current) drug therapy
CPT/HCPCS: 80076; 82977; 85025

== ENCOUNTER → 2021-03-20 | Outpatient (CLI) | payer OTHER ==
[2021-03-20 09:54] LABS: Albumin, Blood 2.6 g/dL (3.4-5.0); Albumin/Globulin Ratio 0.6 (0.8-1.8); Bilirubin, Direct 0.2 mg/dL (0.0-0.3); Bilirubin, Indirect 0.3 mg/dL (0.1-0.7); Bilirubin, Total 0.5 mg/dL (0.1-1.0); Globulin, Blood 4.1 g/dL (2.2-4.0); Total Protein, Blood 6.7 g/dL (6.4-8.2)
== END | disposition home or self-care (01) ==
LOC: LAB RH 08:09 → EDSTATUS 09:16
PROVIDERS: Internal Medicine
DX: K70.30 Alcoholic cirrhosis of liver without ascites (principal)
CPT/HCPCS: 80076

== ENCOUNTER 2021-03-22 03:27 | Day surgery (SDC) | payer OTHER | END 2021-03-22 23:24 | disposition home or self-care (01) | LOC: WOUND 03:27 | DX: L89.213 Pressure ulcer of right hip, stage 3 (principal); S71.001A Unspecified open wound, right hip, initial encounter; X58.XXXA Exposure to other specified factors, initial encounter; E03.9 Hypothyroidism, unspecified; J44.9 Chronic obstructive pulmonary disease, unspecified; I10 Essential (primary) hypertension; K21.9 Gastro-esophageal reflux disease without esophagitis; Z88.5 Allergy status to narcotic agent; Z87.891 Personal history of nicotine dependence | CPT/HCPCS: A9270; G0463 ==

== ENCOUNTER → 2021-04-04 | Outpatient (CLI) | payer OTHER ==
[2021-04-04 23:44] LABS: Appearance, Urine Hazy (Clear); Bilirubin, Urine Neg (Neg); Blood, Urine Neg (Neg); Color, Urine Yellow (P-Yellow); Glucose Qualitative, Urine Neg (Neg); Ketones, Urine Neg (Neg); Leukocyte Esterase, Urine 3+ (Neg); Nitrite, Urine Neg (Neg); Protein, Urine Neg (Neg); Specific Gravity, Urine 1.005 (1.003-1.022); Urobilinogen, Urine NORM (Normal)
[2021-04-05 01:20] LABS: Bacteria Many /hpf; Red Blood Cells, Urine 0-2 /hpf (0-2); Squamous Epithelial Cells Rare /hpf (Few)
== END | disposition home or self-care (01) ==
LOC: EDSTATUS 09:17 → LAB RH 23:26
PROVIDERS: Internal Medicine
DX: N39.0 Urinary tract infection, site not specified (principal)
CPT/HCPCS: 81001; 87077; 87086; 87186

== ENCOUNTER 2021-04-05 01:56 | Day surgery (SDC) | payer OTHER | END 2021-04-05 23:07 | disposition home or self-care (01) | LOC: WOUND 01:56 | DX: L89.213 Pressure ulcer of right hip, stage 3 (principal); S71.001A Unspecified open wound, right hip, initial encounter; X58.XXXA Exposure to other specified factors, initial encounter; E03.9 Hypothyroidism, unspecified; I10 Essential (primary) hypertension; J44.9 Chronic obstructive pulmonary disease, unspecified; K70.30 Alcoholic cirrhosis of liver without ascites; K21.9 Gastro-esophageal reflux disease without esophagitis | CPT/HCPCS: A9270; G0463 ==

== ENCOUNTER 2021-04-19 02:47 | Day surgery (SDC) | payer OTHER | END 2021-04-19 23:27 | disposition home or self-care (01) | LOC: WOUND 02:47 | DX: L89.213 Pressure ulcer of right hip, stage 3 (principal); E66.01 Morbid (severe) obesity due to excess calories; J44.9 Chronic obstructive pulmonary disease, unspecified; I10 Essential (primary) hypertension; Z68.43 Body mass index [BMI] 50.0-59.9, adult | CPT/HCPCS: G0463 ==

== ENCOUNTER → 2021-06-04 | Outpatient (CLI) | payer OTHER ==
[2021-06-04 10:03] LABS: Bilirubin, Urine Neg (Neg); Blood, Urine 1+ (Neg); Glucose Qualitative, Urine Neg (Neg); Ketones, Urine Neg (Neg); Leukocyte Esterase, Urine 2+ (Neg); Nitrite, Urine Pos (Neg); Protein, Urine Neg (Neg); Urobilinogen, Urine 1+ (Normal)
[2021-06-04 10:17] LABS: Appearance, Urine Clear (Clear); Color, Urine Yellow (P-Yellow)
[2021-06-04 10:18] LABS: Red Blood Cells, Urine 0-2 /hpf (0-2)
[2021-06-04 10:19] LABS: Bacteria Many /hpf; Squamous Epithelial Cells Not Seen /hpf (Few)
== END | disposition home or self-care (01) ==
LOC: LAB RH 09:26 → EDSTATUS 12:14
PROVIDERS: Internal Medicine
DX: N39.0 Urinary tract infection, site not specified (principal)
CPT/HCPCS: 81001; 87077; 87086; 87186

== ENCOUNTER 2021-11-02 20:10 | Emergency (ER) | payer MEDICARE, OTHER ==
[~2021-11-02] VITALS: Ht 167.6 cm; Wt 140.6 kg
[~2021-11-02 20:10] MED LIST changes: +Aspir 8181 MG PO; +BASAGLAR K100 UNIT/6 SC; +BUME2 PO; +DILT60ER PO; +DORZOPSO BOTHEYES; +FAMO20; +GABA300 PO; +LEVSOD112 PO; +NOVOLIN N100 UNIT/2 SC
[2021-11-02] MEDS ORDERED: CYCL10 PO (22:11)
== END 2021-11-02 22:07 | disposition home or self-care (01) ==
LOC: ER 20:10
DX: S46.811A Strain of other muscles, fascia and tendons at shoulder and upper arm level, right arm, initial encounter (principal); X58.XXXA Exposure to other specified factors, initial encounter; I50.9 Heart failure, unspecified; J44.9 Chronic obstructive pulmonary disease, unspecified; E03.9 Hypothyroidism, unspecified; E66.01 Morbid (severe) obesity due to excess calories; Z99.81 Dependence on supplemental oxygen; Z88.5 Allergy status to narcotic agent; Z88.8 Allergy status to other drugs, medicaments and biological substances; Z68.43 Body mass index [BMI] 50.0-59.9, adult
CPT/HCPCS: 72040; 99283-25; A9270

== ENCOUNTER 2022-02-23 16:38 | Emergency (ER) | payer MEDICARE, OTHER ==
[~2022-02-23] VITALS: Ht 167.6 cm; Wt 158.8 kg
[2022-02-23 17:36] LABS: BASOPHILS ABSOLUTE AUTO 0.08 K/mm3 (0.00-0.23); BASOPHILS PERCENT AUTO 1 % (0-2); EOSINOPHILS ABSOLUTE AUTO 0.43 K/mm3 (0.00-0.68); EOSINOPHILS PERCENT AUTO 3 % (0-6); Hematocrit 36.2 % (33.0-51.0); Hemoglobin 11.9 g/dL (11.5-16.0); IMMATURE GRAN ABSOLUTE AUTO 0.07 K/mm3 (0.00-0.10); IMMATURE GRAN PERCENT AUTO 1 % (0-1); LYMPHOCYTES ABSOLUTE AUTO 3.42 K/mm3 (0.84-5.20); LYMPHOCYTES PERCENT AUTO 23 % (21-46); MONOCYTES ABSOLUTE AUTO 1.42 K/mm3 (0.16-1.47); MONOCYTES PERCENT AUTO 10 % (4-13); Mean Corpuscular HGB Conc 32.9 g/dL (31.5-36.5); Mean Corpuscular Volume 91 fL (80-100); Mean Platelet Volume 10.5 fL (9.1-12.4); NEUTROPHILS ABSOLUTE AUTO 9.48 K/mm3 (1.96-9.15); NEUTROPHILS PERCENT AUTO 64 % (41-73); Platelet Count 246 K/mm3 (150-400); RDW Coefficient Variation 13.6 % (11.7-14.2); RDW Standard Deviation 45.5 fL (35.1-46.3); Red Blood Cell Count 3.97 M/mm3 (3.80-5.20)
[2022-02-23 18:11] LABS: Albumin/Globulin Ratio 0.9 (0.8-1.8); Bilirubin, Total 0.6 mg/dL (0.1-1.0); Bun/Creatinine Ratio 19.8 (12.0-20.0); Calcium, Blood 8.9 mg/dL (8.5-10.1); Creatinine, Blood 0.61 mg/dL (0.40-1.00); Globulin, Blood 3.5 g/dL (2.2-4.0); Potassium, Blood 4.5 mmol/L (3.5-5.5); Total Protein, Blood 6.5 g/dL (6.4-8.2)
[2022-02-23 22:15] LABS: Source, Urine Fem Cath
[2022-02-23 22:19] LABS: Bilirubin, Urine Neg (Neg); Blood, Urine 1+ (Neg); Glucose Qualitative, Urine Neg (Neg); Ketones, Urine Neg (Neg); Leukocyte Esterase, Urine 3+ (Neg); Nitrite, Urine Pos (Neg); Protein, Urine 1+ (Neg); Urobilinogen, Urine 1+ (Normal)
[2022-02-23 22:24] LABS: Appearance, Urine Clear (Clear); Color, Urine Yellow (P-Yellow)
[2022-02-23 22:28] LABS: Bacteria Rare /hpf; Red Blood Cells, Urine 0-2 /hpf (0-2); Renal Epithelial Few /hpf (0-Rare); Squamous Epithelial Cells Not Seen /hpf (Few); Transitional Epithelial Cells Few /hpf (0-Rare); White Blood Cells, Urine 50-100 /hpf (0-5)
[2022-02-23] MEDS ORDERED: CEFP200 PO (22:32)
[2022-02-23] MEDS ORDERED: ONDA4ODT MM (22:32)
== END 2022-02-23 23:54 | disposition home or self-care (01) ==
LOC: ER 16:38
PROVIDERS: Emergency Medicine
DX: N12 Tubulo-interstitial nephritis, not specified as acute or chronic (principal); J44.9 Chronic obstructive pulmonary disease, unspecified; Z88.5 Allergy status to narcotic agent; Z79.899 Other long term (current) drug therapy; Z79.82 Long term (current) use of aspirin; Z79.4 Long term (current) use of insulin; Z87.891 Personal history of nicotine dependence
CPT/HCPCS: 36415; 51701; 80053; 81001; 83605; 84703; 85025; 87040; 87086; 96361-59; 96365-59; 96375-59; 99284-25; A9270; J0696; J1885; J7030

== ENCOUNTER → 2023-02-11 | Outpatient (CLI) | payer OTHER ==
[~2023-02-11] MED LIST changes: +CEFP200 PO; +Lasix20 MG PO
[2023-02-11 19:39] LABS: BASOPHILS ABSOLUTE AUTO 0.11 K/mm3 (0.00-0.23); BASOPHILS PERCENT AUTO 1 % (0-2); EOSINOPHILS ABSOLUTE AUTO 0.42 K/mm3 (0.00-0.68); EOSINOPHILS PERCENT AUTO 4 % (0-6); Hematocrit 41.7 % (33.0-51.0); Hemoglobin 13.7 g/dL (11.5-16.0); IMMATURE GRAN ABSOLUTE AUTO 0.03 K/mm3 (0.00-0.10); IMMATURE GRAN PERCENT AUTO 0 % (0-1); LYMPHOCYTES PERCENT AUTO 29 % (21-46); MONOCYTES ABSOLUTE AUTO 1.01 K/mm3 (0.16-1.47); MONOCYTES PERCENT AUTO 9 % (4-13); Mean Corpuscular HGB 29.4 pg (26.0-34.0); Mean Corpuscular HGB Conc 32.9 g/dL (31.5-36.5); Mean Corpuscular Volume 90 fL (80-100); Mean Platelet Volume 11.3 fL (9.1-12.4); NEUTROPHILS ABSOLUTE AUTO 6.09 K/mm3 (1.96-9.15); NEUTROPHILS PERCENT AUTO 57 % (41-73); Platelet Count 276 K/mm3 (150-400); RDW Coefficient Variation 14.5 % (11.7-14.2); Red Blood Cell Count 4.66 M/mm3 (3.80-5.20); White Blood Cell Count 10.76 K/mm3 (4.00-11.30)
[2023-02-11 19:45] LABS: International Normalized Ratio 1.17; Prothrombin Time Results 12.2 Sec (9.7-11.5)
[2023-02-11 21:28] LABS: Albumin, Blood 3.8 g/dL (3.4-5.0); Albumin/Globulin Ratio 1.1 (0.8-1.8); Bilirubin, Total 1.2 mg/dL (0.1-1.0); Bun/Creatinine Ratio 9.3 (12.0-20.0); Calcium, Blood 9.4 mg/dL (8.5-10.1); Creatinine, Blood 0.75 mg/dL (0.40-1.00); Globulin, Blood 3.5 g/dL (2.2-4.0); Potassium, Blood 3.5 mmol/L (3.5-5.5); Total Protein, Blood 7.3 g/dL (6.4-8.2)
== END | disposition home or self-care (01) ==
LOC: LAB SHORT 18:44 → LAB 18:44
PROVIDERS: Student in an Organized Health Care Education/Training Program
DX: K74.60 Unspecified cirrhosis of liver (principal)
CPT/HCPCS: 80053; 85025; 85610

== ENCOUNTER → 2023-04-01 | Emergency (ER) | payer OTHER ==
[~2023-04-01] VITALS: Ht 167.6 cm; Wt 124.7 kg
[~2023-04-01] MED LIST changes: +ALBU90OI INH
[2023-04-01 15:23] VITALS: BP 144/85
[2023-04-01 16:20] LABS: BASOPHILS ABSOLUTE AUTO 0.05 K/mm3 (0.00-0.23); BASOPHILS PERCENT AUTO 1 % (0-2); EOSINOPHILS ABSOLUTE AUTO 0.19 K/mm3 (0.00-0.68); EOSINOPHILS PERCENT AUTO 3 % (0-6); Hematocrit 42.5 % (33.0-51.0); Hemoglobin 14.3 g/dL (11.5-16.0); IMMATURE GRAN ABSOLUTE AUTO 0.03 K/mm3 (0.00-0.10); IMMATURE GRAN PERCENT AUTO 0 % (0-1); LYMPHOCYTES ABSOLUTE AUTO 2.03 K/mm3 (0.84-5.20); LYMPHOCYTES PERCENT AUTO 28 % (21-46); MONOCYTES ABSOLUTE AUTO 0.75 K/mm3 (0.16-1.47); MONOCYTES PERCENT AUTO 10 % (4-13); Mean Corpuscular HGB 30.3 pg (26.0-34.0); Mean Corpuscular HGB Conc 33.6 g/dL (31.5-36.5); Mean Corpuscular Volume 90 fL (80-100); Mean Platelet Volume 11.1 fL (9.1-12.4); NEUTROPHILS ABSOLUTE AUTO 4.24 K/mm3 (1.96-9.15); NEUTROPHILS PERCENT AUTO 58 % (41-73); Platelet Count 230 K/mm3 (150-400); RDW Standard Deviation 55.6 fL (35.1-46.3); Red Blood Cell Count 4.72 M/mm3 (3.80-5.20); White Blood Cell Count 7.29 K/mm3 (4.00-11.30)
[2023-04-01 16:24] LABS: Influenza A, PCR NEGATIVE (NEGATIVE); Influenza B, PCR NEGATIVE (NEGATIVE); Resp Syncytial Virus, PCR NEGATIVE (NEGATIVE); SARS-Cov-2 (COVID-19) PCR, MMC NEGATIVE (NEGATIVE)
[2023-04-01 16:48] LABS: Albumin, Blood 3.3 g/dL (3.4-5.0); Albumin/Globulin Ratio 0.8 (0.8-1.8); Bilirubin, Total 0.9 mg/dL (0.1-1.0); Bun/Creatinine Ratio 12.1 (12.0-20.0); Creatinine, Blood 0.75 mg/dL (0.40-1.00); Globulin, Blood 3.9 g/dL (2.2-4.0); Potassium, Blood 2.9 mmol/L (3.5-5.5); Total Protein, Blood 7.2 g/dL (6.4-8.2)
[2023-04-01 17:42] LABS: Source, Urine Clean Catch
[2023-04-01 17:53] LABS: Appearance, Urine Hazy (Clear); Bilirubin, Urine Neg (Neg); Blood, Urine Neg (Neg); Color, Urine Yellow (P-Yellow); Glucose Qualitative, Urine Neg (Neg); Ketones, Urine 1+ (Neg); Leukocyte Esterase, Urine 2+ (Neg); Nitrite, Urine Neg (Neg); Protein, Urine 1+ (Neg); Specific Gravity, Urine 1.015 (1.003-1.022); Urobilinogen, Urine 3+ (Normal)
[2023-04-01 18:16] LABS: Bacteria Many /hpf; Squamous Epithelial Cells Mod /hpf (Few); Yeast/Fungi Urine Rare /hpf
== END ==
LOC: ER 15:17
PROVIDERS: Physician Assistant; Student in an Organized Health Care Education/Training Program
DX: J44.9 Chronic obstructive pulmonary disease, unspecified (principal); N39.0 Urinary tract infection, site not specified; F32.A Depression, unspecified; F41.9 Anxiety disorder, unspecified; Z20.822 Contact with and (suspected) exposure to COVID-19; Z88.5 Allergy status to narcotic agent; Z79.899 Other long term (current) drug therapy; Z79.82 Long term (current) use of aspirin; Z79.4 Long term (current) use of insulin; Z87.891 Personal history of nicotine dependence
CPT/HCPCS: 0241U; 71046; 80053; 81001; 85025; 99283-25

== ENCOUNTER 2023-11-25 12:01 | Emergency (ER) | payer OTHER ==
[~2023-11-25] VITALS: Ht 157.5 cm; Wt 102.1 kg
[~2023-11-25 12:01] MED LIST changes: +BUPROPION XL150 M1 PO; -BUSP10 PO; +BUSP5 PO; +Benadryl Itch28.3 G1 TOP; +CAPSAICIN60 G1 TOP; +CHOLESTYRAMI239.4 G5 PO; +CRANBERRY500 M1 PO; +Cyclobenzaprine5 MG PO; +DULCOLAX400 MG/5 M PO; +JARDIANCE10 MG PO; +K-TAB ER20 ME1 PO; +LEVSOD100 PO; -LEVSOD112 PO; +MELA3 PO; +METAMUCIL POWD798 GM PO; +METSALMENC TOP; +NYSTATIN100000 U13 MT; +NYSTRIT TOP; +OLAN5 PO; +OXYACE7.5T PO; +PANTOPRAZOLE SO40 M2 PO; -POTA10T PO; +PRAM.125 PO; +Prozac20 MG PO; -Prozac40 MG PO; +ROXICODONE15 MG PO; +SENNA LAXATIVE8.6 MG PO; +SIME80CH PO; +SPIRONOLACTONE50 MG PO; +SYNTHROID50 MC1 PO
[2023-11-25 12:25] VITALS: BP 142/65
[2023-11-25] MEDS ORDERED: Ivermectin 3 MG Tab PO ONE (12:30)
[2023-11-25] MEDS ORDERED: HyDROXyzine HCl 25 MG Tab PO ONE (12:30)
[2023-11-25] MEDS ORDERED: IVERMECTIN3 MG PO (12:52)
== END 2023-11-25 13:01 | disposition home or self-care (01) ==
LOC: ER 12:01
DX: B86 Scabies (principal); N18.9 Chronic kidney disease, unspecified; J44.9 Chronic obstructive pulmonary disease, unspecified; F32.A Depression, unspecified; Z87.891 Personal history of nicotine dependence; Z88.5 Allergy status to narcotic agent; Z91.018 Allergy to other foods; Z79.899 Other long term (current) drug therapy; Z79.890 Hormone replacement therapy
CPT/HCPCS: 99282; A9270

== ENCOUNTER 2024-01-06 18:08 | Emergency (ER) | payer OTHER ==
[~2024-01-06] VITALS: Ht 167.6 cm; Wt 117.9 kg
[~2024-01-06 18:08] MED LIST changes: +IVERMECTIN3 MG PO
[2024-01-06] MEDS ORDERED: Diazepam 5 MG / ML 2ML SYR IV ONE (20:25)
[2024-01-06] MEDS ORDERED: OxyCODONE HCL 5 MG TAB PO ONE (20:25)
[2024-01-06] MEDS ORDERED: Droperidol 5 mg/2 ml Vial IV ONE (21:50)
[2024-01-06 22:18] LABS: BASOPHILS ABSOLUTE AUTO 0.06 K/mm3 (0.00-0.23); BASOPHILS PERCENT AUTO 1 % (0-2); EOSINOPHILS ABSOLUTE AUTO 0.05 K/mm3 (0.00-0.68); EOSINOPHILS PERCENT AUTO 1 % (0-6); Hemoglobin 13.4 g/dL (11.5-16.0); IMMATURE GRAN ABSOLUTE AUTO 0.03 K/mm3 (0.00-0.10); IMMATURE GRAN PERCENT AUTO 0 % (0-1); LYMPHOCYTES ABSOLUTE AUTO 2.42 K/mm3 (0.84-5.20); LYMPHOCYTES PERCENT AUTO 26 % (21-46); MONOCYTES PERCENT AUTO 11 % (4-13); Mean Corpuscular HGB 30.2 pg (26.0-34.0); Mean Corpuscular HGB Conc 35.3 g/dL (31.5-36.5); Mean Corpuscular Volume 86 fL (80-100); Mean Platelet Volume 10.7 fL (9.1-12.4); NEUTROPHILS ABSOLUTE AUTO 5.74 K/mm3 (1.96-9.15); NEUTROPHILS PERCENT AUTO 62 % (41-73); Platelet Count 198 K/mm3 (150-400); RDW Coefficient Variation 12.8 % (11.7-14.2); RDW Standard Deviation 40.1 fL (35.1-46.3); Red Blood Cell Count 4.43 M/mm3 (3.80-5.20)
[2024-01-06 22:23] VITALS: BP 143/89
[2024-01-06] MEDS ORDERED: LORazepam 2 MG/ML 1ML Injection IV ONE (22:35)
[2024-01-06 22:37] LABS: Albumin, Blood 3.6 g/dL (3.4-5.0); Albumin/Globulin Ratio 1.2 (0.8-1.8); Bilirubin, Total 1.9 mg/dL (0.1-1.0); Bun/Creatinine Ratio 8.9 (12.0-20.0); Calcium, Blood 9.7 mg/dL (8.5-10.1); Creatinine, Blood 0.9 mg/dL (0.40-1.00); Globulin, Blood 3.1 g/dL (2.2-4.0); Potassium, Blood 3.5 mmol/L (3.5-5.5); Total Protein, Blood 6.7 g/dL (6.4-8.2)
[2024-01-07] MEDS ORDERED: Voltaren100 GM TOP (00:35)
[2024-01-07] MEDS ORDERED: Robaxin750 MG PO (00:35)
== END 2024-01-07 01:15 | disposition home or self-care (01) ==
LOC: ER 18:08
PROVIDERS: Student in an Organized Health Care Education/Training Program
DX: M17.0 Bilateral primary osteoarthritis of knee (principal); G89.29 Other chronic pain; Z87.39 Personal history of other diseases of the musculoskeletal system and connective tissue; Z87.891 Personal history of nicotine dependence; Z79.899 Other long term (current) drug therapy; Z88.5 Allergy status to narcotic agent; Z91.018 Allergy to other foods
CPT/HCPCS: 73562-LT; 73562-RT; 73700; 80053; 85025; 96374; 96375; 99284-25; A9270; J1790; J2060; J3360

== ENCOUNTER 2024-05-19 12:13 | Day surgery (SDC) | payer OTHER ==
[~2024-05-19 12:13] MED LIST changes: +Lactated Ringer's 1,000 ML IV ONE; +Robaxin750 MG PO; +Voltaren100 GM TOP
[2024-05-19] MEDS ORDERED: Ipratropium/Albuterol SulF 2.5-0.5MG/3 ML Amp ONE (14:10)
[2024-05-19] MEDS ORDERED: propofoL 50 ML IV ONE (14:14)
[2024-05-19] MEDS ORDERED: Lactated Ringer's 1,000 ML IV ONE (14:16)
[2024-05-19] MEDS ORDERED: BUPR150ER PO (14:18)
[2024-05-19] MEDS ORDERED: BUSP10 PO (14:19)
[2024-05-19] MEDS ORDERED: FAMO20 PO (14:20)
[2024-05-19] MEDS ORDERED: PREG300 PO (14:21)
--- NOTE | 2024-05-19 14:29 | NUR ---
05/19/24 1429 Allyn Levine PT PRESENT TO PRE OP IN WC CHAIR, UNABLE TO STAND, USES A [facility] LIFT. ONCE PT WAS HALF UP IN LIFT BATTERY ON [facility]. THIS RN, HUMBERTO TAYLOR AND CAYLA DAWKINS RN IN ROOM WITH PT. ONCE BATTERY REPLACED TRANSFERED PT WITHOUT INCIDENT TO BED.
[2024-05-19 15:40] VITALS: BP 140/83
== END 2024-05-19 15:25 | disposition home or self-care (01) ==
LOC: ORSCSDS 12:13
PROVIDERS: Internal Medicine Gastroenterology
PROC: 0DJ08ZZ Inspection of Upper Intestinal Tract, Via Natural or Artificial Opening Endoscopic (ICD-10-PCS; principal; 2024-05-19 14:15)
DX: K74.60 Unspecified cirrhosis of liver (principal); I85.00 Esophageal varices without bleeding; J44.9 Chronic obstructive pulmonary disease, unspecified; Z99.81 Dependence on supplemental oxygen; K21.9 Gastro-esophageal reflux disease without esophagitis; K44.9 Diaphragmatic hernia without obstruction or gangrene; Z86.718 Personal history of other venous thrombosis and embolism; F03.C0 Unspecified dementia, severe, without behavioral disturbance, psychotic disturbance, mood disturbance, and anxiety; I50.9 Heart failure, unspecified; I12.9 Hypertensive chronic kidney disease with stage 1 through stage 4 chronic kidney disease, or unspecified chronic kidney disease; N18.9 Chronic kidney disease, unspecified; Z79.899 Other long term (current) drug therapy
CPT/HCPCS: J2704; J7120

== ENCOUNTER → 2024-07-10 | Outpatient (CLI) | payer OTHER ==
[~2024-07-10] MED LIST changes: +BUPR150ER PO; +BUSP10 PO; -Lactated Ringer's 1,000 ML IV ONE; +PREG300 PO
== END ==
LOC: LAB 13:18 → LAB SHORT 13:18
DX: R60.0 Localized edema (principal)
CPT/HCPCS: 84132

== ENCOUNTER → 2024-09-04 | Outpatient (CLI) | payer OTHER ==
[2024-09-04 13:41] LABS: Source, Urine Clean Catch
[2024-09-04 14:32] LABS: Bacteria Many /hpf; Red Blood Cells, Urine 0-2 /hpf (0-2); Squamous Epithelial Cells Few /hpf (Few)
== END ==
LOC: LAB 13:38 → LAB SHORT 13:38
PROVIDERS: Nurse Practitioner Family
DX: R10.84 Generalized abdominal pain (principal)
CPT/HCPCS: 81015; 87077; 87086; 87186

== ENCOUNTER → 2024-10-07 | Outpatient (CLI) | payer OTHER ==
[2024-10-07 10:27] LABS: Source, Urine Voided
[2024-10-07 12:44] LABS: Amorphous Light (0-Heavy); Bacteria Few /hpf; Red Blood Cells, Urine 0-2 /hpf (0-2); Squamous Epithelial Cells Not Seen /hpf (Few); White Blood Cells, Urine 0-2 /hpf (0-5)
== END ==
LOC: LAB SHORT 10:24 → LAB 10:24
PROVIDERS: Nurse Practitioner Family
DX: R10.9 Unspecified abdominal pain (principal)
CPT/HCPCS: 81015; 87077; 87086; 87186

== ENCOUNTER → 2025-02-03 | Outpatient (CLI) | payer OTHER ==
[2025-02-03 11:15] LABS: Source, Urine Voided
[2025-02-03 12:53] LABS: Bilirubin, Urine Neg (Neg); Glucose Qualitative, Urine 2+ (Neg); Ketones, Urine Neg (Neg); Leukocyte Esterase, Urine Neg (Neg); Protein, Urine Neg (Neg); Specific Gravity, Urine 1.010 (1.003-1.022); Urobilinogen, Urine NORM (Normal)
[2025-02-03 13:05] LABS: Color, Urine Pale Yellow (P-Yellow)
[2025-02-03 13:12] LABS: Red Blood Cells, Urine 0-2 /hpf (0-2); White Blood Cells, Urine 0-2 /hpf (0-5)
== END ==
LOC: LAB 11:14 → LAB SHORT 11:14
PROVIDERS: Nurse Practitioner Family
DX: N39.0 Urinary tract infection, site not specified (principal); R30.0 Dysuria
CPT/HCPCS: 81001; 87077; 87086; 87186

== ENCOUNTER 2025-02-23 11:00 | Emergency (ER) | payer OTHER ==
[~2025-02-23] VITALS: Ht 167.6 cm; Wt 175.5 kg
[2025-02-23 11:14] VITALS: BP 126/84
[2025-02-23 11:58] LABS: BASOPHILS ABSOLUTE AUTO 0.10 K/mm3 (0.00-0.23); BASOPHILS PERCENT AUTO 2 % (0-2); EOSINOPHILS ABSOLUTE AUTO 0.32 K/mm3 (0.00-0.68); EOSINOPHILS PERCENT AUTO 6 % (0-6); Hematocrit 38.5 % (33.0-51.0); Hemoglobin 12.1 g/dL (11.5-16.0); IMMATURE GRAN ABSOLUTE AUTO 0.01 K/mm3 (0.00-0.10); IMMATURE GRAN PERCENT AUTO 0 % (0-1); LYMPHOCYTES ABSOLUTE AUTO 1.52 K/mm3 (0.84-5.20); LYMPHOCYTES PERCENT AUTO 27 % (21-46); MONOCYTES ABSOLUTE AUTO 0.56 K/mm3 (0.16-1.47); MONOCYTES PERCENT AUTO 10 % (4-13); Mean Corpuscular HGB Conc 31.4 g/dL (31.5-36.5); Mean Corpuscular Volume 84 fL (80-100); NEUTROPHILS ABSOLUTE AUTO 3.03 K/mm3 (1.96-9.15); NEUTROPHILS PERCENT AUTO 55 % (41-73); NRBC ABSOLUTE 0.00 K/mm3 (0.00-0.02); NRBC Auto 0.0 /100 WBC (0.0-0.2); Platelet Count 191 K/mm3 (150-400); RDW Coefficient Variation 16.5 % (11.7-14.2); RDW Standard Deviation 50.6 fL (35.1-46.3)
[2025-02-23 12:22] LABS: Alanine Aminotransfer (ALT/SGP 27.0 U/L (12-78); Albumin, Blood 3.4 g/dL (3.4-5.0); Albumin/Globulin Ratio 1.1 (0.8-1.8); Anion Gap 5.0 mmol/L (3-11); Aspartate Aminotrans (AST/SGOT 37.0 U/L (12-37); Bilirubin, Total 0.7 mg/dL (0.1-1.0); Blood Urea Nitrogen 7.0 mg/dL (8-24); CO2, Blood 30.0 mmol/L (21-32); Calcium, Blood 9.1 mg/dL (8.5-10.1); Chloride, Blood 107.0 mmol/L (98-108); Creatinine, Blood 0.9 mg/dL (0.40-1.00); Globulin, Blood 3.1 g/dL (2.2-4.0); Glucose, Blood 91.0 mg/dL (70-99); Potassium, Blood 3.6 mmol/L (3.5-5.5); Sodium, Blood 138.0 mmol/L (136-145); Total Protein, Blood 6.5 g/dL (6.4-8.2)
== END 2025-02-23 12:35 | disposition left against medical advice (07) ==
LOC: ER 11:00
PROVIDERS: Student in an Organized Health Care Education/Training Program
DX: M79.602 Pain in left arm (principal); Z53.21 Procedure and treatment not carried out due to patient leaving prior to being seen by health care provider
CPT/HCPCS: 71046; 80053; 83880; 85025; 93005; 93010

== ENCOUNTER 2025-02-26 06:58 | Emergency (ER) | payer OTHER ==
[~2025-02-26] VITALS: Ht 167.6 cm; Wt 172.4 kg
[2025-02-26 08:42] LABS: Source, Urine Clean Catch
[2025-02-26 08:46] LABS: Bilirubin, Urine Neg (Neg); Color, Urine Yellow (P-Yellow); Glucose Qualitative, Urine 2+ (Neg); Ketones, Urine Neg (Neg); Leukocyte Esterase, Urine 3+ (Neg); Protein, Urine Neg (Neg); Specific Gravity, Urine 1.010 (1.003-1.022); Urobilinogen, Urine NORM (Normal)
[2025-02-26 09:00] LABS: Alanine Aminotransfer (ALT/SGP 26.0 U/L (12-78); Albumin, Blood 3.7 g/dL (3.4-5.0); Albumin/Globulin Ratio 1.1 (0.8-1.8); Anion Gap 7.0 mmol/L (3-11); Aspartate Aminotrans (AST/SGOT 40.0 U/L (12-37); Bilirubin, Total 0.7 mg/dL (0.1-1.0); Blood Urea Nitrogen 13.0 mg/dL (8-24); CO2, Blood 29.0 mmol/L (21-32); Calcium, Blood 9.5 mg/dL (8.5-10.1); Chloride, Blood 105.0 mmol/L (98-108); Creatinine, Blood 1.16 mg/dL (0.40-1.00); Globulin, Blood 3.4 g/dL (2.2-4.0); Glucose, Blood 93.0 mg/dL (70-99); Potassium, Blood 3.8 mmol/L (3.5-5.5); Sodium, Blood 137.0 mmol/L (136-145); Total Protein, Blood 7.1 g/dL (6.4-8.2)
[2025-02-26 09:22] LABS: BASOPHILS ABSOLUTE AUTO 0.09 K/mm3 (0.00-0.23); BASOPHILS PERCENT AUTO 2 % (0-2); EOSINOPHILS ABSOLUTE AUTO 0.37 K/mm3 (0.00-0.68); EOSINOPHILS PERCENT AUTO 7 % (0-6); Hematocrit 38.6 % (33.0-51.0); Hemoglobin 12.1 g/dL (11.5-16.0); IMMATURE GRAN ABSOLUTE AUTO 0.01 K/mm3 (0.00-0.10); IMMATURE GRAN PERCENT AUTO 0 % (0-1); LYMPHOCYTES ABSOLUTE AUTO 1.39 K/mm3 (0.84-5.20); LYMPHOCYTES PERCENT AUTO 25 % (21-46); MONOCYTES ABSOLUTE AUTO 0.53 K/mm3 (0.16-1.47); MONOCYTES PERCENT AUTO 9 % (4-13); Mean Corpuscular HGB Conc 31.3 g/dL (31.5-36.5); Mean Corpuscular Volume 84 fL (80-100); NEUTROPHILS ABSOLUTE AUTO 3.24 K/mm3 (1.96-9.15); NEUTROPHILS PERCENT AUTO 58 % (41-73); NRBC ABSOLUTE 0.00 K/mm3 (0.00-0.02); NRBC Auto 0.0 /100 WBC (0.0-0.2); Platelet Count 199 K/mm3 (150-400); RDW Coefficient Variation 16.5 % (11.7-14.2); RDW Standard Deviation 50.8 fL (35.1-46.3)
[2025-02-26] MEDS ORDERED: OMEP20ER PO (10:21)
[2025-02-26 10:30] VITALS: BP 121/72
== END 2025-02-26 11:09 | disposition home or self-care (01) ==
LOC: ER 06:58
PROVIDERS: Emergency Medicine
DX: N39.0 Urinary tract infection, site not specified (principal); Z87.891 Personal history of nicotine dependence
CPT/HCPCS: 80053; 81001; 85025; 87077; 87086; 87186; 93005; 93010; 99285-25; A6590; A9270